=== PATIENT | male | born 1965 | race Caucasian/White ===

== ENCOUNTER 2016-10-22 14:13 | Emergency (ER) | payer OTHER ==
[2016-10-22] MEDS ORDERED: TORAdol 30 mg Injection IV ONE (14:32)
[2016-10-22] MEDS ORDERED: Phenergan 25 MG INJ IV ONE (14:32)
[2016-10-22] MEDS ORDERED: Hydromorphone 1 mg/ml Ampule IV ONE (14:32)
[2016-10-22] MEDS ORDERED: Sodium Chloride 0.9% 1000 ML 1,000 ML IV STA (14:32)
--- NOTE | 2016-10-22 14:33 | ERPHSYRPT ---
- History of Present Illness Time Seen by Provider: 10/22/16 14:26 Historian: patient Exam Limitations: no limitations Physician History: Patient is a 51-year-old male with his complaining of a sudden onset of right flank and right abdominal pain about one hour ago. He is nauseated. He is unable to urinate. He has a history of a large kidney stone a few years ago that needed to be disrupted with lithotripsy. He states that he's had mild right flank and abdominal pain for about 6 weeks it is been intermittent. Today it became suddenly much worse. He has a past medical history of kidney stones, high cholesterol, high blood pressure, GERD, and gout. He's had no abdominal surgeries. Timing/Duration: today, hour(s) (1) Activities at Onset: none Quality: sharpness Abdominal Pain Onset Location: RLQ, flank (right) Pain Radiation: no radiation Severity of Pain-Max: severe Severity of Pain-Current: severe Modifying Factors: Improves With: nothing Associated Symptoms: nausea, other (dysuria) Previous symptoms: same symptoms as today Allergies/Adverse Reactions: shellfish derived Allergy (Intermediate, Verified 10/22/16 14:24) Hives Penicillins Allergy (Verified 10/22/16 14:24) promethazine HCl [From Phenergan] Adverse Reaction (Verified 10/22/16 14:24) Home Medications: Allopurinol 300 mg [Zyloprim 300 mg] 300 mg PO HS 05/11/15 [History] Esomeprazole Magnesium [Nexium] 20 mg PO 05/11/15 [History] Lisinopril 10 mg [Zestril 10 MG] 40 mg PO HS 05/11/15 [History] Loratadine 10 mg [Claritin 10 mg] 10 mg PO HS 05/11/15 [History] Pravastatin Sodium 40 mg PO HS 05/11/15 [History] Tamsulosin HCl [Flomax] 0.4 mg PO HS 05/11/15 [History] Hx Tetanus, Diphtheria Vaccination/Date Given: No Hx Influenza Vaccination/Date Given: Yes Hx Pneumococcal Vaccination/Date Given: No - Review of Systems Constitutional: No Fever, No Chills Eyes: No Symptoms Ears, Nose, & Throat: No Symptoms Respiratory: No Cough, No Dyspnea Cardiac: No Chest Pain, No Edema, No Syncope Abdominal/Gastrointestinal: Abdominal Pain, Nausea Genitourinary Symptoms: Dysuria Musculoskeletal: No Back Pain, No Neck Pain Skin: No Rash Neurological: No Dizziness, No Focal Weakness, No Sensory Changes Psychological: No Symptoms Endocrine: No Symptoms Hematologic/Lymphatic: No Symptoms Immunological/Allergic: No Symptoms All Other Systems: Reviewed and Negative - Past Medical History Pertinent Past Medical History: Yes Neurological History: No Pertinent History ENT History: No Pertinent History Cardiac History: High Cholesterol, Hypertension Respiratory History: No Pertinent History Endocrine Medical History: No Pertinent History Musculoskeletal History: Fractures GI Medical History: Other, GERD History: Other Psycho-Social History: No Pertinent History Male Reproductive Disorders: No Pertinent History Other Medical History: esophogeal errousion, kidney stones, kidney biopsy - Past Surgical History Past Surgical History: Yes Neuro Surgical History: No Pertinent History Cardiac: No Pertinent History Respiratory: No Pertinent History Gastrointestinal: No Pertinent History, Hernia Repair Genitourinary: Other Musculoskeletal: No Pertinent History, Orthopedic Surgery Male Surgical History: No Pertinent History Other Surgical History: EGD-banding esophagous, lithotripsy, left wrist x2, right knee.cyst removed from left side of kneck - Social History Smoking Status: Never smoker Exposure to second hand smoke: No Drug Use: none Patient Lives Alone: No Significant Family History: other (Father with Colon cacner dx 62) - Nursing Vital Signs Nursing Vital Signs: Initial Vital Signs Temperature 97.5 F 10/22/16 14:19 Pulse Rate 66 10/22/16 14:19 Respiratory Rate 16 10/22/16 14:19 Blood Pressure 169/99 10/22/16 14:19 O2 Sat by Pulse Oximetry 96 10/22/16 14:19 Pain Scale Pain Intensity 0 - Physical Exam General Appearance: moderate distress Eye Exam: PERRL/EOMI, eyes nml inspection Ears, Nose, Throat Exam: normal ENT inspection, pharynx normal, moist mucous membranes Neck Exam: normal inspection, non-tender, supple, full range of motion Respiratory Exam: normal breath sounds, lungs clear, No respiratory distress Cardiovascular Exam: tachycardia Gastrointestinal/Abdomen Exam: tenderness (RLQ) Rectal Exam: not done Back Exam: CVA tenderness (right) Extremity Exam: normal inspection, normal range of motion, pelvis stable Neurologic Exam: alert, oriented x 3, cooperative, normal mood/affect, nml cerebellar function, sensation nml, No motor deficits Skin Exam: normal color, warm, dry SpO2 Interpretation: normal - CT Exams Abdomen/Pelvis CT Interpretation: Discussed w/radiologist, Tele-radiologist Report, Normal Appendix, Other (4 X 5.9 mm stone in distal right ureter with obstruction per Dr Littlejohn.) Ordered Tests: Active Orders 24 hr Category Date Time Status IV Insertion STAT Care 10/22/16 14:32 Active ABDOMEN AND PELVIS W/0 CONTRAS [CT] Stat Exams 10/22/16 14:33 Taken CBC W DIFF Stat Lab 10/22/16 14:30 Completed CMP Stat Lab 10/22/16 14:30 Completed LIPASE Stat Lab 10/22/16 14:30 Completed Lactic Acid Stat Lab 10/22/16 14:32 Completed UA W/RFX UR CULTURE Stat Lab 10/22/16 14:33 Ordered Medication Summary Discontinued Medications Generic Name Dose Route Start Last Admin Trade Name Freq PRN Reason Stop Dose Admin Hydromorphone HCl 1 mg 10/22/16 14:32 10/22/16 14:49 Hydromorphone 1 Mg/Ml Ampule IV 10/22/16 14:33 1 mg STAT ONE Administration Hydromorphone HCl Confirm 10/22/16 14:41 Hydromorphone 1 Mg/Ml Ampule Administered 10/22/16 14:42 Dose 1 mg .ROUTE .STK-MED ONE Sodium Chloride 1,000 mls @ 999 mls/hr 10/22/16 14:32 10/22/16 14:42 Sodium Chloride 0.9% 1000 Ml IV 10/22/16 15:32 999 mls/hr .Q1H1M STA Administration Sodium Chloride Confirm 10/22/16 14:41 Sodium Chloride 0.9% 1000 Ml Administered 10/22/16 14:42 Dose 1,000 mls @ ud .ROUTE .STK-MED ONE Ketorolac Tromethamine 30 mg 10/22/16 14:32 10/22/16 14:46 Toradol 30 Mg Injection IV 10/22/16 14:33 30 mg STAT ONE Administration Ketorolac Tromethamine Confirm 10/22/16 14:40 Toradol 30 Mg Injection Administered 10/22/16 14:41 Dose 30 mg .ROUTE .STK-MED ONE Ondansetron HCl 4 mg 10/22/16 14:37 10/22/16 14:44 Zofran 4 Mg/2 Ml Vial IV 10/22/16 14:38 4 mg STAT ONE Administration Ondansetron HCl Confirm 10/22/16 14:40 Zofran 4 Mg/2 Ml Vial Administered 10/22/16 14:41 Dose 4 mg .ROUTE .STK-MED ONE Promethazine HCl 25 mg 10/22/16 14:32 10/22/16 14:39 Phenergan 25 Mg Inj IV 10/22/16 14:33 Not Given STAT ONE Tamsulosin HCl 0.4 mg 10/22/16 14:34 10/22/16 14:53 Flomax 0.4 Mg PO 10/22/16 14:35 0.4 mg HS STA Administration Tamsulosin HCl Confirm 10/22/16 14:41 Flomax 0.4 Mg Administered 10/22/16 14:42 Dose 0.4 mg .ROUTE .STK-MED ONE Lab/Rad Data: Laboratory Result Diagrams 10/22/16 14:30 10/22/16 14:30 Laboratory Results 10/22/16 10/22/16 10/22/16 Range/Units 14:32 14:30 14:30 WBC 12.9 H (4.0-10.5) K/mm3 RBC 5.28 (4.1-5.6) M/mm3 Hgb 15.1 (12.5-18.0) gm/dl Hct 45.0 (42-50) % MCV 85.2 (78-100) fl MCH 28.6 (26-32) pg MCHC 33.6 (32-36) g/dl RDW 15.0 H (11.5-14.0) % Plt Count 289 (150-450) K/mm3 MPV 10.4 H (6-9.5) fl Gran % 73.3 H (36.0-66.0) % Lymphocytes % 17.8 L (24.0-44.0) % Monocytes % 7.5 (0.0-12.0) % Eosinophils % 1.2 (0.00-5.0) % Basophils % 0.2 (0.0-0.4) % Basophils # 0.03 (0-0.4) Sodium 141 (136-145) mEq/L Potassium 3.8 (3.5-5.1) mEq/L Chloride 105 (98-107) mEq/L Carbon Dioxide 24.6 (21-32) mEq/L Anion Gap 15.1 H (5-15) MEQ/L BUN 18 (9-20) mg/dL Creatinine 1.21 (0.55-1.30) mg/dl Estimated GFR > 60 ML/MIN Glucose 126 H (70-110) MG/DL Lactic Acid 1.8 (0.4-2.0) Calcium 10.0 (8.5-10.1) mg/dL Total Bilirubin 0.40 (0.2-1.0) mg/dL AST 21 (15-37) U/L ALT 31 (12-78) U/L Alkaline Phosphatase 123 H (46-116) U/L Serum Total Protein 7.7 (6.4-8.2) gm/dL Albumin 3.9 (3.4-5.0) g/dL Lipase 143 (73-393) U/L - Progress Progress: improved, pain not gone completely Counseled pt/family regarding: lab results, diagnosis, rad results - Departure Time of Disposition: 16:54 Departure Disposition: Home Clinical Impression: Ureterolithiasis Condition: Stable Critical Care Time: No Referrals: ELTON MÉNDEZ [Primary Care Provider] - Additional Instructions: You have a 6 mm stone in your distal right ureter. The stone is just about ready to pass into the bladder. You were given fluids, Zofran 4 mg, and Dilaudid 2 mg in the IV in the ER. Continue to stay well hydrated. Take Pyote one to 2 tablets every 4-6 hours as needed for pain.
[2016-10-22] MEDS ORDERED: Flomax 0.4 MG PO STA (14:34)
[2016-10-22] MEDS ORDERED: Zofran 4 MG/2 ML VIAL IV ONE (14:37)
[2016-10-22] MEDS ORDERED: Zofran 4 MG/2 ML VIAL ONE (14:40)
[2016-10-22] MEDS ORDERED: TORAdol 30 mg Injection ONE (14:40)
[2016-10-22] MEDS ORDERED: Hydromorphone 1 mg/ml Ampule ONE ×2 (14:41→16:59)
[2016-10-22] MEDS ORDERED: Flomax 0.4 MG ONE (14:41)
[2016-10-22] MEDS ORDERED: Sodium Chloride 0.9% 1000 ML 1,000 ML ONE (14:41)
[2016-10-22 14:54] LABS: BASOPHIL % 0.2 % (0.0-0.4); Eosinophil % 1.2 % (0.00-5.0); Granulocytes % 73.3 % (36.0-66.0); Lymphocytes % 17.8 % (24.0-44.0); Mean Cell Volume 85.2 fl (78-100); Mean Corpuscular Hemoglobin 28.6 pg (26-32); Mean Platelet Volume 10.4 fl (6-9.5); Monocytes % 7.5 % (0.0-12.0); Platelet Count 289 K/mm3 (150-450); Red Blood Count 5.28 M/mm3 (4.1-5.6); White Blood Count 12.9 K/mm3 (4.0-10.5)
[2016-10-22 15:10] LABS: ALBUMIN 3.9 g/dL (3.4-5.0); ALKALINE PHOSPHATASE 123 U/L (46-116); ANION GAP 15.1 MEQ/L (5-15); BLOOD UREA NITROGEN 18 mg/dL (9-20); CHLORIDE 105 mEq/L (98-107); Carbon Dioxide 24.6 mEq/L (21-32); Glucose 126 MG/DL (70-110); LIPASE 143 U/L (73-393); Potassium 3.8 mEq/L (3.5-5.1); SGOT/AST 21 U/L (15-37); SGPT/ALT 31 U/L (12-78); SODIUM 141 mEq/L (136-145); Total Protein 7.7 gm/dL (6.4-8.2)
[2016-10-22] MEDS ORDERED: NORCO 7.5/325 MG TAB PO PRN (16:55)
[2016-10-22] MEDS: Hydromorphone 1 mg/ml Ampule IV ONE ×2 (17:00→17:04)
[2016-10-22 17:59] VITALS: BP 111/61; PULSE 59; O2SAT 93
--- NOTE | 2016-10-22 21:29 | XRAY ---
Indication: Right lower pain. Pain with urinating. Multiple contiguous axial images obtained through the abdomen and pelvis without contrast as ordered. Comparison: None Lung bases demonstrates mild bibasilar dependent atelectasis and a few calcified granulomas. Heart is not enlarged. There is a 6 mm distal right ureteral calculus approximately 5 cm proximal to the UVJ. The more proximal right ureter is prominent up to 6 mm and there is mild hydronephrosis with minimal perinephric stranding consistent with partial obstructive uropathy. Additional bilateral renal micro-calculi. Stomach is markedly distended with food. Noncontrasted stomach and bowel loops appear nonobstructed. Normal appendix. Minimal sigmoid diverticulosis. No free fluid/air. Tiny 3 mm gallstone and a few calcified splenic granulomas. Remaining liver, pancreas, spleen, adrenal glands, bladder, and aorta appear unremarkable for noncontrast exam. Intact ventral hernia mesh graft. Osseous structures intact. Impression: 1. 6 mm distal right ureteral calculus producing partial obstruction. Additional bilateral renal micro-calculi. 2. Incidental tiny gallstone, sigmoid diverticulosis, and evidence for old granulomatous disease. Comment: Preliminary interpretation was made by [facility]. No discrepancy. CTDI 23.67
== END 2016-10-22 18:00 | disposition home or self-care (01) ==
LOC: ED 14:13
DX: N20.1 Calculus of ureter (principal); R10.9 Unspecified abdominal pain; Z87.442 Personal history of urinary calculi; E78.00 Pure hypercholesterolemia, unspecified; I10 Essential (primary) hypertension; R10.31 Right lower quadrant pain; R11.0 Nausea
CPT/HCPCS: 36000; 36415; 74176; 80053; 83605; 83690; 85025; 96360; 96374; 96375; 96376; 99284; J1170; J1885; J2405; A9270-GY

== ENCOUNTER 2016-11-24 20:38 | Emergency (ER) | payer OTHER ==
[2016-11-24] MEDS ORDERED: Sodium Chloride 0.9% 1000 ML 1,000 ML IV STA ×2 (21:21→22:12)
[2016-11-24] MEDS ORDERED: TORAdol 30 mg Injection IV ONE (21:21)
[2016-11-24] MEDS ORDERED: Zofran 4 MG/2 ML VIAL IV ONE (21:21)
--- NOTE | 2016-11-24 21:26 | ERPHSYRPT ---
- History of Present Illness Time Seen by Provider: 11/24/16 21:14 Historian: patient Exam Limitations: no limitations Patient Subjective Stated Complaint: Per Patient c/o right lower back pain starting post stent removal today by Dr Enriquez for kidney stones. pain 10-10 not controlled by spasm meds and hydrocodone. Triage Nursing Assessment: Per Patient c/o right lower back pain starting post stent removal today by Dr Enriquez for kidney stones. pain 10-10 not controlled by spasm meds and hydrocodone. Physician History: 51-year-old white male with history of urolithiasis status post ureteral stent which was removed today arrives with complaint of pain in his right flank which is crampy severe sharp going on since around noon. Patient without vomiting has had nausea Past medical history includes hyperlipidemia, high blood pressure, GERD, fractures, esophageal erosion, kidney stones, kidney biopsy. Past surgical history includes EGD, lithotripsy, left wrist surgery right knee surgery. , Ureteral stents. Timing/Duration: today Activities at Onset: none Quality: cramping, sharpness Abdominal Pain Onset Location: other (right flank) Pain Radiation: no radiation Severity of Pain-Max: moderate Severity of Pain-Current: moderate Modifying Factors: Improves With: other (patient with ureteral stent removed today) Associated Symptoms: back (Right flank pain), other (nausea), No chest pain, No diaphoresis, No diarrhea, No fever/chills, No fatigue, No headache (ill), No heartburn, No loss of appetite, No nausea, No neck pain, No rash, No shortness of breath, No syncope, No testicular pain, No vomiting, No weakness Previous symptoms: same symptoms as today Allergies/Adverse Reactions: shellfish derived Allergy (Intermediate, Verified 10/22/16 14:24) Hives Penicillins Allergy (Verified 10/22/16 14:24) promethazine HCl [From Phenergan] Adverse Reaction (Verified 10/22/16 14:24) Home Medications: Allopurinol 300 mg [Zyloprim 300 mg] 300 mg PO HS 05/11/15 [History] Esomeprazole Magnesium [Nexium] 20 mg PO HS 05/11/15 [History] Lisinopril 10 mg [Zestril 10 MG] 40 mg PO HS 03/01/16 [History] Loratadine 10 mg [Claritin 10 mg] 10 mg PO HS 05/11/15 [History] Pravastatin Sodium 40 mg PO HS 05/11/15 [History] Tamsulosin HCl [Flomax] 0.4 mg PO HS 05/11/15 [History] Hx Tetanus, Diphtheria Vaccination/Date Given: Yes Hx Influenza Vaccination/Date Given: Yes Hx Pneumococcal Vaccination/Date Given: No - Review of Systems Constitutional: No Fever, No Chills Eyes: No Symptoms Ears, Nose, & Throat: No Symptoms Respiratory: No Cough, No Dyspnea Cardiac: No Chest Pain, No Edema, No Syncope Abdominal/Gastrointestinal: Nausea, No Abdominal Pain, No Vomiting, No Diarrhea , No Constipation, No Hematemesis, No Hematochezia, No Melena, No Dysphagia, No Appetite Changes Genitourinary Symptoms: Flank Pain, No Dysuria, No Frequency, No Hematuria, No Hesitancy Musculoskeletal: No Back Pain, No Neck Pain Skin: No Rash Neurological: No Dizziness, No Focal Weakness, No Sensory Changes Psychological: No Symptoms Endocrine: No Symptoms All Other Systems: Reviewed and Negative - Past Medical History Pertinent Past Medical History: Yes Neurological History: No Pertinent History ENT History: No Pertinent History Cardiac History: No Pertinent History Respiratory History: No Pertinent History Endocrine Medical History: No Pertinent History Musculoskeletal History: Fractures GI Medical History: No Pertinent History History: Other Psycho-Social History: No Pertinent History Male Reproductive Disorders: No Pertinent History Other Medical History: Kidney stones - Past Surgical History Past Surgical History: Yes Neuro Surgical History: No Pertinent History Cardiac: No Pertinent History Respiratory: No Pertinent History Gastrointestinal: No Pertinent History, Hernia Repair Genitourinary: Other Musculoskeletal: No Pertinent History, Orthopedic Surgery Male Surgical History: No Pertinent History Other Surgical History: Stens for kidney stones - Social History Smoking Status: Never smoker Exposure to second hand smoke: No Drug Use: none Patient Lives Alone: No (family) Significant Family History: other (Father with Colon cacner dx 62) - Nursing Vital Signs Nursing Vital Signs: Initial Vital Signs Temperature 98.1 F 11/24/16 20:59 Pulse Rate 84 11/24/16 20:59 Respiratory Rate 12 11/24/16 20:59 Blood Pressure 137/84 11/24/16 20:59 O2 Sat by Pulse Oximetry 98 11/24/16 20:59 Pain Scale Pain Intensity [Right Lower 10 Back] Pain Intensity 2 - Physical Exam General Appearance: moderate distress Eye Exam: PERRL/EOMI, eyes nml inspection Ears, Nose, Throat Exam: normal ENT inspection, pharynx normal, moist mucous membranes Neck Exam: normal inspection, non-tender, supple, full range of motion Respiratory Exam: normal breath sounds, lungs clear, No respiratory distress Gastrointestinal/Abdomen Exam: soft, normal bowel sounds, No tenderness, No distention, No mass, No guarding Male Genitalia Exam: normal genitalia Back Exam: CVA tenderness (right flank tenderness) Extremity Exam: normal inspection, normal range of motion, pelvis stable Neurologic Exam: alert, oriented x 3, cooperative, normal mood/affect, nml cerebellar function, sensation nml, No motor deficits Skin Exam: normal color, warm, dry SpO2 Interpretation: normal (98%) SpO2: 98 Oxygen Delivery: Room Air Ordered Tests: Active Orders 24 hr Category Date Time Status IV Insertion STAT Care 11/24/16 21:21 Active CBC W DIFF Stat Lab 11/24/16 21:42 Completed CMP Stat Lab 11/24/16 21:42 Completed UA W/ MICROSCOPIC Stat Lab 11/24/16 22:15 Completed Medication Summary Discontinued Medications Generic Name Dose Route Start Last Admin Trade Name Freq PRN Reason Stop Dose Admin Sodium Chloride 1,000 mls @ 999 mls/hr 11/24/16 21:21 11/24/16 21:37 Sodium Chloride 0.9% 1000 Ml IV 11/24/16 22:21 999 mls/hr .Q1H1M STA Administration Sodium Chloride Confirm 11/24/16 21:34 Sodium Chloride 0.9% 1000 Ml Administered 11/24/16 21:35 Dose 1,000 mls @ ud .ROUTE .STK-MED ONE Sodium Chloride 1,000 mls @ 999 mls/hr 11/24/16 22:12 11/24/16 22:48 Sodium Chloride 0.9% 1000 Ml IV 11/24/16 23:12 999 mls/hr .Q1H1M STA Administration Sodium Chloride Confirm 11/24/16 22:44 Sodium Chloride 0.9% 1000 Ml Administered 11/24/16 22:45 Dose 1,000 mls @ ud .ROUTE .STK-MED ONE Ketorolac Tromethamine 30 mg 11/24/16 21:21 11/24/16 21:48 Toradol 30 Mg Injection IV 11/24/16 21:22 30 mg STAT ONE Administration Ketorolac Tromethamine Confirm 11/24/16 21:34 Toradol 30 Mg Injection Administered 11/24/16 21:35 Dose 30 mg .ROUTE .STK-MED ONE Ondansetron HCl 4 mg 11/24/16 21:21 11/24/16 21:48 Zofran 4 Mg/2 Ml Vial IV 11/24/16 21:22 4 mg STAT ONE Administration Ondansetron HCl Confirm 11/24/16 21:34 Zofran 4 Mg/2 Ml Vial Administered 11/24/16 21:35 Dose 4 mg .ROUTE .STK-MED ONE Lab/Rad Data: Laboratory Result Diagrams 11/24/16 21:42 11/24/16 21:42 Laboratory Results 11/24/16 11/24/16 11/24/16 Range/Units 22:15 21:42 21:42 WBC 12.0 H (4.0-10.5) K/mm3 RBC 4.71 (4.1-5.6) M/mm3 Hgb 13.8 (12.5-18.0) gm/dl Hct 41.3 L (42-50) % MCV 87.7 (78-100) fl MCH 29.3 (26-32) pg MCHC 33.4 (32-36) g/dl RDW 14.5 H (11.5-14.0) % Plt Count 296 (150-450) K/mm3 MPV 9.3 (6-9.5) fl Gran % 76.9 H (36.0-66.0) % Lymphocytes % 13.8 L (24.0-44.0) % Monocytes % 7.0 (0.0-12.0) % Eosinophils % 2.1 (0.00-5.0) % Basophils % 0.2 (0.0-0.4) % Basophils # 0.02 (0-0.4) Sodium 141 (136-145) mEq/L Potassium 3.9 (3.5-5.1) mEq/L Chloride 104 (98-107) mEq/L Carbon Dioxide 26.6 (21-32) mEq/L Anion Gap 13.8 (5-15) MEQ/L BUN 13 (9-20) mg/dL Creatinine 1.40 H (0.55-1.30) mg/dl Estimated GFR 57 ML/MIN Glucose 120 H (70-110) MG/DL Calcium 9.8 (8.5-10.1) mg/dL Total Bilirubin 0.30 (0.2-1.0) mg/dL AST 13 L (15-37) U/L ALT 22 (12-78) U/L Alkaline Phosphatase 114 (46-116) U/L Serum Total Protein 7.2 (6.4-8.2) gm/dL Albumin 3.7 (3.4-5.0) g/dL Ur Collection Type CCMS Urine Color YELLOW (YELLOW) Urine Appearance CLEAR (CLEAR) Urine pH 5.0 (5-6) Ur Specific [place] 1.025 (1.005-1.025) Urine Protein NEGATIVE (Negative) Urine Ketones NEGATIVE (NEGATIVE) Urine Blood 250 (0-5) [place]/ul Urine Nitrite NEGATIVE (NEGATIVE) Urine Bilirubin NEGATIVE (NEGATIVE) Urine Urobilinogen NORMAL (0-1) mg/dL Ur Leukocyte Esterase TRACE (NEGATIVE) Urine Microscopic RBC 2-5 (0-2) /HPF Urine Microscopic WBC 2-5 (0-5) /HPF Urine Glucose NEGATIVE (NEGATIVE) mg/dL Specimen Received 11-24-16 2229 - Progress Progress: improved Progress Note: 11/24/16 22:54 51-year-old white male with history of ureteral stones who had a ureteral stent pulled from the right side this afternoon states he's been having pain in his right flank since around noon. Describes the pain as crampy. Has no fevers no real abdominal pain no nausea no vomiting. Patient is tender with palpation in the right flank. CBC CMP UA is obtained on this patient to essentially normal with only a few white cells and red cells in his urine. Patient is given IV Toradol 30 mg IV normal saline 2 L he is receiving second liter of normal saline he states he is feeling markedly improved and is pain free. Patient states he has a few [place] tablets at home (only 2 or 3) Will plan on discharge with this patient once remaining fluids have instilled Will write for [place] for pain. Patient to return home [place] as prescribed follow-up with his family doctor or urologist. Return for acute distress or for severe symptoms - Departure Time of Disposition: 23:14 Departure Disposition: Home Clinical Impression: Right flank pain, Ureteral colic, recent removal ureteral stent Condition: Fair Critical Care Time: No Referrals: VERNON PLASENCIA [Primary Care Provider] - Additional Instructions: Return home. Plenty of fluids. [place] 5/325 #15 one to 2 orally every 4-6 hours as needed for pain. Follow-up with your urologist or your family doctor. Return for acute distress or for severe symptoms. Prescriptions: Hydrocodone Bit/Acetaminophen [[place] 5/325Mg] 1 - 2 tab PO Q4-6HPRN PRN #15 tablet PRN Reason: Pain
[2016-11-24] MEDS ORDERED: Sodium Chloride 0.9% 1000 ML 1,000 ML ONE ×2 (21:34→22:44)
[2016-11-24] MEDS ORDERED: Zofran 4 MG/2 ML VIAL ONE (21:34)
[2016-11-24] MEDS ORDERED: TORAdol 30 mg Injection ONE (21:34)
[2016-11-24 21:48] LABS: BASOPHIL % 0.2 % (0.0-0.4); Eosinophil % 2.1 % (0.00-5.0); Granulocytes % 76.9 % (36.0-66.0); Lymphocytes % 13.8 % (24.0-44.0); Mean Cell Volume 87.7 fl (78-100); Mean Corpuscular Hemoglobin 29.3 pg (26-32); Mean Platelet Volume 9.3 fl (6-9.5); Platelet Count 296 K/mm3 (150-450); Red Blood Count 4.71 M/mm3 (4.1-5.6); Red Cell Distribution Width 14.5 % (11.5-14.0)
[2016-11-24 22:15] LABS: ALBUMIN 3.7 g/dL (3.4-5.0); ANION GAP 13.8 MEQ/L (5-15); BILIRUBIN,TOTAL 0.3 mg/dL (0.2-1.0); Carbon Dioxide 26.6 mEq/L (21-32); Potassium 3.9 mEq/L (3.5-5.1); Total Protein 7.2 gm/dL (6.4-8.2)
[2016-11-24 22:29] LABS: Bilirubin NEGATIVE (NEGATIVE); Blood 250 Ery/ul (0-5); COMPLETE URINE MICROSCOPIC? YES; Collection Type CCMS; Glucose NEGATIVE (NEGATIVE); Leukocyte Esterase TRACE (NEGATIVE)
[2016-11-24 22:30] LABS: ADD URINE CULTURE? NO (NO)
[2016-11-24 23:41] VITALS: BP 123/68; PULSE 61; O2SAT 99
== END 2016-11-24 23:41 | disposition home or self-care (01) ==
LOC: ED 20:38
DX: R10.9 Unspecified abdominal pain (principal); N23 Unspecified renal colic; Z98.890 Other specified postprocedural states
CPT/HCPCS: 36000; 36415; 80053; 81000; 85025; 96360; 96361; 96374; 96375; 99283; J1885; J2405

== ENCOUNTER 2019-01-08 00:22 | Observation (INO) | payer OTHER ==
[2019-01-08] MEDS ORDERED: Sodium Chloride 0.9% 1000 ML 1,000 ML IV STA ×2 (01:07→02:49)
[2019-01-08] MEDS ORDERED: Zofran 4 MG/2 ML VIAL IV ONE (01:07)
[2019-01-08] MEDS ORDERED: Hydromorphone 1 mg/ml Ampule IV ONE (01:07)
--- NOTE | 2019-01-08 01:07 | ERPHSYRPT ---
- History of Present Illness Time Seen by Provider: 01/08/19 00:50 Historian: patient, family Exam Limitations: no limitations Patient Subjective Stated Complaint: pt states he seen PCP on sunday and flu test was negative, PCP gave pt shot on sunday, pt states that he was nausea on sunday, pt states that severe stomach pains began sunday around 1030, pt states that he had diarrhea, pt states that he has been pucking all night, pt states he took a zofran x2 with no relief, pt states he feels like he could have BM but gut hurts so bad he cant strain, pt states that he has not ate or drank for the past couple of days Triage Nursing Assessment: pt came into the er via wheelchair with spouse, pt has been N/V/D today, pt abdomen is distended, bowel sounds are hypoactive, mucus membranes are dry, vitals wnl Physician History: 53 y/o white male with 2 day h/o n/v/d and abd pain. sx worsening. pt seen by pcp and flu tests negative. zofran did not help and could not hold it down. pt had a nl colonoscopy 2 years ago. pt has associated abd distension Timing/Duration: day(s) (2 to 3), intermittent, worse Activities at Onset: none Quality: cramping, fullness, pressure Abdominal Pain Onset Location: generalized abdomen Pain Radiation: no radiation Severity of Pain-Max: moderate Severity of Pain-Current: moderate Associated Symptoms: diarrhea, loss of appetite, nausea, vomiting Previous symptoms: no prior history Allergies/Adverse Reactions: shellfish derived Allergy (Intermediate, Verified 01/08/19 00:46) Hives Penicillins Allergy (Verified 01/08/19 00:46) promethazine HCl [From Phenergan] Adverse Reaction (Verified 01/08/19 00:46) Home Medications: Allopurinol 300 mg [Zyloprim 300 mg] 300 mg PO HS 05/11/15 [History] Esomeprazole Magnesium [Nexium] 20 mg PO HS 05/11/15 [History] Lisinopril 10 mg [Zestril 10 MG] 40 mg PO HS 05/11/15 [History] Loratadine 10 mg [Claritin 10 mg] 10 mg PO HS 05/11/15 [History] Pravastatin Sodium 40 mg PO HS 05/11/15 [History] Tamsulosin HCl [Flomax] 0.4 mg PO HS 05/11/15 [History] Fluticasone Propionate [Flonase NASAL] 1 spray .ROUTE DAILY 01/08/19 [ History] Ropinirole HCl 1 mg PO HS 01/08/19 [History] Hx Tetanus, Diphtheria Vaccination/Date Given: Yes Hx Influenza Vaccination/Date Given: No Hx Pneumococcal Vaccination/Date Given: No - Review of Systems Constitutional: No Symptoms Eyes: No Symptoms Ears, Nose, & Throat: No Symptoms Respiratory: No Symptoms Cardiac: No Symptoms Abdominal/Gastrointestinal: Abdominal Pain, Nausea, Vomiting, Diarrhea Genitourinary Symptoms: No Symptoms Musculoskeletal: No Symptoms Skin: No Symptoms Neurological: No Symptoms Psychological: No Symptoms Endocrine: No Symptoms Hematologic/Lymphatic: No Symptoms Immunological/Allergic: No Symptoms All Other Systems: Reviewed and Negative - Past Medical History Pertinent Past Medical History: Yes Neurological History: No Pertinent History ENT History: No Pertinent History Cardiac History: No Pertinent History Respiratory History: No Pertinent History Endocrine Medical History: No Pertinent History Musculoskeletal History: Fractures GI Medical History: No Pertinent History History: Other Psycho-Social History: No Pertinent History Male Reproductive Disorders: No Pertinent History Other Medical History: Kidney stones - Past Surgical History Past Surgical History: Yes Neuro Surgical History: No Pertinent History Cardiac: No Pertinent History Respiratory: No Pertinent History Gastrointestinal: No Pertinent History, Hernia Repair Genitourinary: Other Musculoskeletal: No Pertinent History, Orthopedic Surgery Male Surgical History: No Pertinent History Other Surgical History: Stens for kidney stones, parathyroidectomy - Social History Smoking Status: Never smoker Exposure to second hand smoke: No Drug Use: none Patient Lives Alone: No (family) Significant Family History: other (Father with Colon cacner dx 62) - Nursing Vital Signs Nursing Vital Signs: Initial Vital Signs Temperature 97.4 F 01/08/19 00:27 Pulse Rate 80 01/08/19 00:27 Respiratory Rate 22 01/08/19 00:27 Blood Pressure 136/94 01/08/19 00:27 O2 Sat by Pulse Oximetry 100 01/08/19 00:27 Pain Scale Pain Intensity 7 - Physical Exam General Appearance: mild distress, alert, anxiety Eye Exam: PERRL/EOMI, eyes nml inspection Ears, Nose, Throat Exam: normal ENT inspection, moist mucous membranes Neck Exam: normal inspection, non-tender, supple, full range of motion Respiratory Exam: normal breath sounds, lungs clear, airway intact, No chest tenderness, No respiratory distress Cardiovascular Exam: regular rate/rhythm, normal heart sounds, normal peripheral pulses Gastrointestinal/Abdomen Exam: tenderness, distention, guarding, other ( decreased bs) Rectal Exam: not done Back Exam: normal inspection, normal range of motion, No CVA tenderness, No vertebral tenderness Extremity Exam: normal inspection, normal range of motion, pelvis stable Neurologic Exam: alert, oriented x 3, cooperative, label rewinder II-XII nml as tested, normal mood/affect, nml cerebellar function Skin Exam: normal color, warm, dry Lymphatic Exam: No adenopathy SpO2 Interpretation: normal SpO2: 100 O2 Delivery: Room Air Ordered Tests: Active Orders 24 hr Category Date Time Status IV Insertion STAT Care 01/08/19 01:07 Active ABDOMEN AND PELVIS W/0 CONTRAS [CT] Stat Exams 01/08/19 01:08 Taken AMYLASE Stat Lab 01/08/19 01:18 Completed CBC W DIFF Stat Lab 01/08/19 01:18 Completed CMP Stat Lab 01/08/19 01:18 Completed LIPASE Stat Lab 01/08/19 01:18 Completed Lactic Acid Stat Lab 01/08/19 01:30 Completed UA W/RFX UR CULTURE Stat Lab 01/08/19 03:52 Completed Transfer Order Routine Transfer 01/08/19 Ordered Medication Summary Discontinued Medications Generic Name Dose Route Start Last Admin Trade Name Freq PRN Reason Stop Dose Admin Bisacodyl Confirm 01/08/19 02:36 Dulcolax 10 Mg Supp Administered 01/08/19 02:37 Dose 10 mg .ROUTE .STK-MED ONE Bisacodyl 10 mg 01/08/19 02:39 01/08/19 02:41 Dulcolax 10 Mg Supp [place] 01/08/19 02:40 10 mg STAT ONE Administration Glycerin 1 supp.rect 01/08/19 02:23 01/08/19 02:35 Glycerin Adult Suppository RC 01/08/19 02:24 Not Given STAT ONE Hydromorphone HCl 1 mg 01/08/19 01:07 01/08/19 01:34 Hydromorphone 1 Mg/Ml Ampule IV 01/08/19 01:08 1 mg STAT ONE Administration Hydromorphone HCl Confirm 01/08/19 01:14 Hydromorphone 1 Mg/Ml Ampule Administered 01/08/19 01:15 Dose 1 mg .ROUTE .STK-MED ONE Sodium Chloride 1,000 mls @ 999 mls/hr 01/08/19 01:07 01/08/19 03:45 Sodium Chloride 0.9% 1000 Ml IV 01/08/19 02:07 Infused .Q1H1M STA Infusion Sodium Chloride Confirm 01/08/19 01:14 Sodium Chloride 0.9% 1000 Ml Administered 01/08/19 01:15 Dose 1,000 mls @ ud .ROUTE .STK-MED ONE Sodium Chloride Confirm 01/08/19 02:48 Sodium Chloride 0.9% 1000 Ml Administered 01/08/19 02:49 Dose 1,000 mls @ ud .ROUTE .STK-MED ONE Sodium Chloride 1,000 mls @ 999 mls/hr 01/08/19 02:49 01/08/19 04:06 Sodium Chloride 0.9% 1000 Ml IV 01/08/19 03:49 Infused .Q1H1M STA Infusion Ondansetron HCl 4 mg 01/08/19 01:07 01/08/19 01:32 Zofran 4 Mg/2 Ml Vial IV 01/08/19 01:08 4 mg STAT ONE Administration Ondansetron HCl Confirm 01/08/19 01:14 Zofran 4 Mg/2 Ml Vial Administered 01/08/19 01:15 Dose 4 mg .ROUTE .STK-MED ONE Lab/Rad Data: Laboratory Result Diagrams 01/08/19 01:18 01/08/19 01:18 Laboratory Results 01/08/19 01/08/19 01/08/19 Range/Units 03:52 01:30 01:18 WBC (4.0-10.5) K/mm3 RBC (4.1-5.6) M/mm3 Hgb (12.5-18.0) gm/dl Hct (42-50) % MCV (78-100) fl MCH (26-32) pg MCHC (32-36) g/dl RDW (11.5-14.0) % Plt Count (150-450) K/mm3 MPV (6-9.5) fl Gran % (36.0-66.0) % Eos # (Auto) (0-0.5) Absolute Lymphs (auto) (1.0-4.6) Absolute Monos (auto) (0.0-1.3) Lymphocytes % (24.0-44.0) % Monocytes % (0.0-12.0) % Eosinophils % (0.00-5.0) % Basophils % (0.0-0.4) % Absolute Granulocytes (1.4-6.9) Basophils # (0-0.4) Sodium 143 (137-145) mmol/L Potassium 4.3 (3.5-5.1) mmol/L Chloride 103 (98-107) mmol/L Carbon Dioxide 27 (22-30) mmol/L Anion Gap 17.6 H (5-15) MEQ/L BUN 28 H (9-20) mg/dL Creatinine 1.40 H (0.66-1.25) mg/dL Estimated GFR 56.6 ML/MIN Glucose 140 H (74-106) mg/dL Lactic Acid 1.6 (0.4-2.0) Calcium 9.8 (8.4-10.2) mg/dL Total Bilirubin 0.70 (0.2-1.3) mg/dL AST 21 (17-59) U/L ALT 20 (0-50) U/L Alkaline Phosphatase 89 (38-126) U/L Serum Total Protein 8.0 (6.3-8.2) g/dL Albumin 4.4 (3.5-5.0) g/dL Amylase 52 (30-110) U/L Lipase 23 (23-300) U/L Urine Color NELLIE (YELLOW) Urine Appearance SLIGHTLY CLOUDY (CLEAR) Urine pH 5.0 (5-6) Ur Specific [place] 1.029 (1.005-1.025) Urine Protein 30 (Negative) Urine Ketones TRACE (NEGATIVE) Urine Blood NEGATIVE (0-5) Weston/ul Urine Nitrite NEGATIVE (NEGATIVE) Urine Bilirubin NEGATIVE (NEGATIVE) Urine Urobilinogen 4 (0-1) mg/dL Ur Leukocyte Esterase NEGATIVE (NEGATIVE) Urine WBC (Auto) 3-5 (0-5) /HPF Urine RBC (Auto) 3-5 (0-2) /HPF U Hyaline Cast (Auto) 3-5 (0-2) /LPF U Epithel Cells (Auto) NONE (FEW) /HPF Urine Bacteria (Auto) NONE (NEGATIVE) /HPF Urine Mucus (Auto) MODERATE (NEGATIVE) /HPF Urine Culture Reflexed NO (NO) Urine Glucose NEGATIVE (NEGATIVE) mg/dL Slides for Path Review 01/08/19 Range/Units 01:18 WBC 13.2 H (4.0-10.5) K/mm3 RBC 5.19 (4.1-5.6) M/mm3 Hgb 15.6 (12.5-18.0) gm/dl Hct 46.1 (42-50) % MCV 88.8 (78-100) fl MCH 30.1 (26-32) pg MCHC 33.8 (32-36) g/dl RDW 14.3 H (11.5-14.0) % Plt Count 327 (150-450) K/mm3 MPV 10.0 H (6-9.5) fl Gran % 77.9 H (36.0-66.0) % Eos # (Auto) 0.04 (0-0.5) Absolute Lymphs (auto) 1.00 (1.0-4.6) Absolute Monos (auto) 1.85 H (0.0-1.3) Lymphocytes % 7.6 L (24.0-44.0) % Monocytes % 14.0 H (0.0-12.0) % Eosinophils % 0.3 (0.00-5.0) % Basophils % 0.2 (0.0-0.4) % Absolute Granulocytes 10.33 H (1.4-6.9) Basophils # 0.02 (0-0.4) Sodium (137-145) mmol/L Potassium (3.5-5.1) mmol/L Chloride (98-107) mmol/L Carbon Dioxide (22-30) mmol/L Anion Gap (5-15) MEQ/L BUN (9-20) mg/dL Creatinine (0.66-1.25) mg/dL Estimated GFR ML/MIN Glucose (74-106) mg/dL Lactic Acid (0.4-2.0) Calcium (8.4-10.2) mg/dL Total Bilirubin (0.2-1.3) mg/dL AST (17-59) U/L ALT (0-50) U/L Alkaline Phosphatase (38-126) U/L Serum Total Protein (6.3-8.2) g/dL Albumin (3.5-5.0) g/dL Amylase (30-110) U/L Lipase (23-300) U/L Urine Color (YELLOW) Urine Appearance (CLEAR) Urine pH (5-6) Ur Specific [place] (1.005-1.025) Urine Protein (Negative) Urine Ketones (NEGATIVE) Urine Blood (0-5) Weston/ul Urine Nitrite (NEGATIVE) Urine Bilirubin (NEGATIVE) Urine Urobilinogen (0-1) mg/dL Ur Leukocyte Esterase (NEGATIVE) Urine WBC (Auto) (0-5) /HPF Urine RBC (Auto) (0-2) /HPF U Hyaline Cast (Auto) (0-2) /LPF U Epithel Cells (Auto) (FEW) /HPF Urine Bacteria (Auto) (NEGATIVE) /HPF Urine Mucus (Auto) (NEGATIVE) /HPF Urine Culture Reflexed (NO) Urine Glucose (NEGATIVE) mg/dL Slides for Path Review YES - Progress Progress: improved Progress Note: 01/08/19 04:41 ct abd/pelvis-partial sbo. no transition point. near abd wall mesh 01/08/19 04:[address] whitley. i reviewed pt hx, condition, lab and ct abd/pelvis results. she accepts pt for observation. pt to have gen surg consult. pt agreeable to be placed in obs and obtain gen surg consultation. pt does not want to be evaluated by dr. quinteros but any ok pt states he is feeling better. he has been passing flatus since the rectal suppository placed Discussed with : Erna Counseled pt/family regarding: lab results, diagnosis, rad results - Departure Departure Disposition: Home Clinical Impression: Partial small bowel obstruction Condition: Stable Critical Care Time: No Referrals: ELTON MÉNDEZ [Primary Care Provider] -
[2019-01-08] MEDS ORDERED: Hydromorphone 1 mg/ml Ampule ONE (01:14)
[2019-01-08] MEDS ORDERED: Sodium Chloride 0.9% 1000 ML 1,000 ML ONE ×2 (01:14→02:48)
[2019-01-08] MEDS ORDERED: Zofran 4 MG/2 ML VIAL ONE ×2 (01:14→07:16)
[2019-01-08 01:20] LABS: Absolute Neutrophil Ct (ANC) 10.33 (1.4-6.9); BASOPHIL % 0.2 % (0.0-0.4); Basophil (Absolute #) 0.02 (0-0.4); Eosinophil % 0.3 % (0.00-5.0); Eosinophil (Absolute #) 0.04 (0-0.5); Hematocrit 46.1 % (42-50); Hemoglobin 15.6 gm/dl (12.5-18.0); Lymphocytes % 7.6 % (24.0-44.0); Mean Cell Volume 88.8 fl (78-100); Mean Corpuscular Hemoglobin 30.1 pg (26-32); Mean Corpuscular Hgb Concent. 33.8 g/dl (32-36); Monocyte (Absolute #) 1.85 (0.0-1.3); Neutrophil % 77.9 % (36.0-66.0); Platelet Count 327 K/mm3 (150-450); Red Blood Count 5.19 M/mm3 (4.1-5.6); Red Cell Distribution Width 14.3 % (11.5-14.0); White Blood Count 13.2 K/mm3 (4.0-10.5)
[2019-01-08 01:34] LABS: ALBUMIN 4.4 g/dL (3.5-5.0); ANION GAP 17.6 MEQ/L (5-15); BILIRUBIN,TOTAL 0.7 mg/dL (0.2-1.3); Calcium 9.8 mg/dL (8.4-10.2); Creatinine 1 1.4 mg/dL (0.66-1.25); Potassium 4.3 mmol/L (3.5-5.1)
[2019-01-08] MEDS ORDERED: GLYCERIN ADULT SUPPOSITORY RC ONE (02:23)
[2019-01-08] MEDS ORDERED: Dulcolax 10 MG SUPP ONE (02:36)
[2019-01-08] MEDS ORDERED: Dulcolax 10 MG SUPP PR ONE (02:39)
[2019-01-08 03:22] LABS: Slide Review 1 YES
[2019-01-08 03:57] LABS: Appearance SLIGHTLY CLOUDY (CLEAR); Bilirubin NEGATIVE (NEGATIVE); Blood NEGATIVE Ery/ul (0-5); Glucose NEGATIVE (NEGATIVE); Ketones TRACE (NEGATIVE); Leukocyte Esterase NEGATIVE (NEGATIVE); Mucus MODERATE /HPF (NEGATIVE); Nitrite NEGATIVE (NEGATIVE); Protein,Urine Dip 30 (Negative); Specific Gravity 1.029 (1.005-1.025); Urobilinogen 4 mg/dL (0-1)
[2019-01-08] MEDS ORDERED: DILAUDID 2 MG INJECTION IV PRN (05:12)
[2019-01-08] MEDS ORDERED: TYLENOL 325 MG PO PRN (05:12)
[2019-01-08] MEDS ORDERED: Sodium Chloride 0.9% 1000 ML 1,000 ML IV SCH (05:12)
[2019-01-08] MEDS: Zofran 4 MG/2 ML VIAL IV PRN ×2 (07:18→21:13)
[2019-01-08 07:24] LABS: ANION GAP 13.9 MEQ/L (5-15); BLOOD UREA NITROGEN 29 mg/dL (9-20); CHLORIDE 107 mmol/L (98-107); Calcium 8.9 mg/dL (8.4-10.2); Carbon Dioxide 27 mmol/L (22-30); Creatinine 1 1.06 mg/dL (0.66-1.25); Glucose 119 mg/dL (74-106); Potassium 4.3 mmol/L (3.5-5.1); SODIUM 143 mmol/L (137-145)
[2019-01-08] MEDS ORDERED: EPINEPHRINE 0.3 MG IM PRN (08:21)
--- NOTE | 2019-01-08 08:27 | HP ---
CHIEF COMPLAINT: Abdominal pain and vomiting. HISTORY OF PRESENT ILLNESS: The patient is a 53 year-old white male patient who was seen in the office two days prior with complaints of abdominal discomfort and some diarrhea. It was felt that he likely had influenza at that time although his swab was negative. The patient was given a shot of Cel[place] but he continued to deteriorate in regards to his abdominal pain and the vomiting became persistent. The patient presented to the emergency room where he was found to have small bowel obstruction and was admitted to the hospital for further evaluation and management. PAST MEDICAL HISTORY: Otherwise significant for hypertension, hyperlipidemia, gout and allergic rhinitis. PAST SURGICAL HISTORY: Parathyroidectomy. Mesh placed for ventral hernia. Previous stents for kidney stones. PHYSICAL EXAMINATION: The patient's vital signs on admission showed his temperature to be 97.4F, pulse 80, respiratory rate 22, blood pressure 136/94. O2 saturation 100%. HEENT: Normocephalic, atraumatic. Pupils equal round reactive to light. Extraocular movements intact. Oropharynx is pink and moist. NECK: Supple without lymphadenopathy, thyromegaly or JVD. CHEST: Clear to auscultation. HEART: Regular rate and rhythm. ABDOMEN: Mildly tender in the epigastric region but otherwise is soft without palpable masses and with normal bowel sounds. EXTREMITIES: Without cyanosis, clubbing or edema. NEUROLOGIC: The patient is alert and oriented x3. No focal deficits were noted. LAB DATA AND TESTS: Laboratory studies thus far have shown his lactic acid to be 1.6. His white count was elevated at 13,200 with a mild left shift and 77.9% granulocytes. His hemoglobin was 13.6, PLT count 327,000. Sugar nonfasting 140. BUN 28, creatinine 1.40. Electrolytes were normal. Liver enzymes were normal. Amylase and lipase were normal. The patient had UA with specific gravity 1.029 and was otherwise essentially normal. CT scan however showed dilated small bowel measuring up to 6 cm, relative change near the abdominal wall mesh without abrupt transition point and the bowel caliber diminishing there after that point suspicious for dilated proximal small bowel obstruction. ASSESSMENT: The patient will be admitted to the hospital and placed at gut rest, IV fluid hydration and surgical consultation.
[2019-01-08] MEDS ORDERED: Epipen 0.3 MG IM PRN (08:32)
--- NOTE | 2019-01-08 09:28 | XRAY ---
Indication: Abdomen distention. Nausea, vomiting, and diarrhea. Multiple contiguous axial images obtained through the abdomen and pelvis without contrast as ordered. Comparison: None Lung bases again demonstrates mild bilateral dependent atelectasis and right base calcified granuloma. No infiltrate or effusion. Heart is not enlarged. New small hiatal hernia. Noncontrasted stomach unremarkable. Mid and left midabdomen small bowel loops are abnormally fluid distended up to 5.5 cm in diameter with tapering midabdomen level concerning for partial small bowel obstruction. More distal ileal bowel loops and colon are normal in caliber with normal bowel gas. Again minimal sigmoid diverticulosis. No free fluid/air. Again incidental 5 mm gallstone, calcified splenic granulomas, nonobstructing bilateral renal micro-calculi, and tiny left renal cortical cyst. Remaining liver, gallbladder, pancreas, spleen, adrenal glands, kidneys, ureters, bladder, and aorta appear unremarkable for noncontrast exam. Osseous structures intact again with minimal spinal degenerative changes. Stable intact midline ventral hernia mesh graft. Impression: 1. New finding partial small bowel obstruction as detailed. 2. New small hiatal hernia. 3. Stable tiny gallstone, sigmoid diverticulosis, nonobstructing bilateral renal micro-calculi, left renal cyst, and evidence for old granulomatous disease. Comment: Preliminary interpretation was made by C. No critical discrepancy. CT DI 18.44
[2019-01-08] MEDS: D5W/0.45NS W/ 20mEq KCl 1000 ML 1,000 ML IV SCH ×2 (09:32→15:35)
[2019-01-08] MEDS ORDERED: Flonase NASAL NS SCH (10:00)
[2019-01-08] MEDS ORDERED: Zestril 20 MG PO SCH (10:00)
[2019-01-08] MEDS ORDERED: PROTONIX 40 MG IV IV SCH (10:00)
[2019-01-08] MEDS ORDERED: NON-FORMULARY ITEM (Pravastatin Sodium [Pravastatin Sodium] 40 MG) PO SCH (22:00)
[2019-01-08] MEDS ORDERED: CLARITIN 10 MG PO SCH (22:00)
[2019-01-08] MEDS ORDERED: ZOCOR 20MG PO SCH (22:00)
[2019-01-08] MEDS ORDERED: REQUIP 2MG TAB PO SCH (22:00)
[2019-01-08] MEDS ORDERED: Zestril 10 MG PO SCH (22:00)
[2019-01-08] MEDS ORDERED: Flomax 0.4 MG PO SCH (22:00)
[2019-01-09 05:02] LABS: Hematocrit 40.2 % (42-50); Hemoglobin 13.1 gm/dl (12.5-18.0); Mean Corpuscular Hgb Concent. 32.6 g/dl (32-36); Mean Platelet Volume 9.6 fl (6-9.5); Platelet Count 241 K/mm3 (150-450); Red Blood Count 4.37 M/mm3 (4.1-5.6); Red Cell Distribution Width 13.8 % (11.5-14.0); White Blood Count 9.1 K/mm3 (4.0-10.5)
[2019-01-09 05:20] LABS: ALBUMIN 3.3 g/dL (3.5-5.0); ALKALINE PHOSPHATASE 58 U/L (38-126); ANION GAP 10.6 MEQ/L (5-15); BLOOD UREA NITROGEN 21 mg/dL (9-20); CHLORIDE 103 mmol/L (98-107); Calcium 8.7 mg/dL (8.4-10.2); Carbon Dioxide 30 mmol/L (22-30); Creatinine 1 1.06 mg/dL (0.66-1.25); Glucose 106 mg/dL (74-106); Potassium 4.4 mmol/L (3.5-5.1); SGOT/AST 17 U/L (17-59); SGPT/ALT 15 U/L (0-50); SODIUM 140 mmol/L (137-145); Total Protein 6.3 g/dL (6.3-8.2)
[2019-01-09 05:52] LABS: Eosinophil 2 % (0.00-3.0); Lymphocytes 21 % (24-44); Monocyte 7 % (0.0-12.0); Neutrophils 70 % (36.-66.); Platelet Estimate NORMAL (NORMAL); Poikilocytosis 2+; Total Cells Counted 100
[2019-01-09 05:53] LABS: ANISOCYTOSIS 1+; Polychromasia RARE; Toxic Granulation RARE
[2019-01-09] MEDS: D5W/0.45NS W/ 20mEq KCl 1000 ML 1,000 ML IV SCH ×2 (07:14→07:15)
[2019-01-09 07:36] VITALS: BP 133/85; PULSE 69; O2SAT 93
--- NOTE | 2019-01-09 08:26 | CONS ---
CONSULT DATE: 01/08/2019 REASON FOR CONSULT: Abdominal cramps possible bowel obstruction. HISTORY: A 53 year-old male had colonoscopy back when he was 51. It was basically satisfactory. He had EGD that did show small hiatal hernia. He has reflux esophagitis and he did apparently have some Kadi-Zapata tears that required banding. The patient had a ventral abdominal hernia with mesh back about 2003. He had discomfort afterwards and major episode of cramping underneath the anterior abdominal wall. He came here. He subsequently went to [place]. He had multiple tests. They basically said that it was probably related to adhesions against the mesh. He has done well in the last basically ten years. He said he was a little nauseated a few days ago. He has not been building up anything particularly. 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 He presented with severe vomiting. He vomited five or six times and he states the only discomfort he is having now is left over from the retching. PHYSICAL EXAMINATION: He is alert. He is not diaphoretic. His vital signs have been normal. ABDOMEN: Mildly distended. He has no peritoneal signs. He has no suggestion of mass or fullness underneath the anterior abdominal wall. His chart is reviewed. His white count was 13,000. He was slightly dehydrated. BUN 28, creatinine 1.4. His is present. He is hungry at this time. He has passed a generous amount of flatus and some stool. IMPRESSION: I suspect the patient does have anterior abdominal adhesions against his mesh. He probably has intermittent partial small bowel obstruction. At this time it looks like it has basically resolved or resolving. PLAN: I think we can advance his diet at discharge. This might require additional diagnostics or treatment in the future at some point.
--- NOTE | 2019-01-09 09:33 | DS ---
DISCHARGE DIAGNOSIS: PARTIAL SMALL BOWEL OBSTRUCTION. CLINICAL EDUCATION ASSISTANT: Dr. Gonzalez Guadalupe. HOSPITAL COURSE: The patient is a 53 year-old white male patient admitted to the hospital with abdominal pain and vomiting. The patient was seen in the emergency room and had CT scan evidence of small bowel obstruction. The patient was admitted to the hospital and placed at gut rest. He did have surgical consultation with Dr. Guadalupe who felt there was no surgical intervention needed at this time. The patient was placed at gut rest, given IV fluid hydration. By the next morning the patient was feeling better and he was given a diet. He has been able to tolerate since that time having some bowel movements. The patient does have history of mesh in the abdomen from abdominal surgery for hernia repair. CT scan showed dilatation of the small bowel with decompression distal to that area. The patient now wishes to go home. He was instructed to follow up with the surgeon next week and follow up in my office as well. He was given MiraLAX to keep his bowels moving so he does not have the complicating factor of constipation. He was given Zofran for nausea and instructed to have light meals throughout the day as opposed to large meals. He is to push fluids and if he starts getting nauseated that Zofran does not take care he is to be at gut rest. The patient realizes he may need surgery at some point. My plan is to do a small bowel follow through x-ray when he returns from an event he has in [place] that he has been planning for quite some time and he is insistent on going to. He will otherwise continue his usual medications as listed previously in the H&P.
== END 2019-01-09 08:44 | disposition home or self-care (01) ==
LOC: ED 00:22 → MED SURG 05:11
PROVIDERS: ADMIT Family Medicine; ATTEND Family Medicine
DX: K56.600 Partial intestinal obstruction, unspecified as to cause (principal); R11.2 Nausea with vomiting, unspecified; I10 Essential (primary) hypertension; E78.5 Hyperlipidemia, unspecified; K21.0 Gastro-esophageal reflux disease with esophagitis; K44.9 Diaphragmatic hernia without obstruction or gangrene
CPT/HCPCS: 36000; 36415; 74176; 80048; 80053; 81001; 82150; 83605; 83690; 85025; 96360; 96361; 96374; 96375; 99285; G0378; 99284; J1170; J2405; A9270-GY

== ENCOUNTER 2019-02-27 09:55 | Day surgery (SDC) | payer OTHER ==
--- NOTE | 2019-02-27 07:31 | HP ---
DATE OF SURGERY: 02/27/2019 ADMISSION DIAGNOSIS: ANTICIPATED PROCEDURE: Enterolysis. HISTORY OF PRESENT ILLNESS: The patient presents for laparoscopic enterolysis. He has had two hospital admissions for bowel obstruction. Upper GI negative. Still having recurrent intermittent discomfort, presents for laparoscopy probable adhesiolysis. PAST MEDICAL HISTORY: Hypertension. Acid reflux. Hyperlipidemia. IgA nephropathy. ALLERGIES: PENICILLIN. IODINATED CONTRAST MEDIA. SHELLFISH. MEDICATIONS: Omeprazole, Allopurinol, loratadine, lisinopril, Flomax. PAST SURGICAL HISTORY: Parathyroid surgery. Hernia surgery. Knee surgery. Wrist surgery. Lithotripsy. SOCIAL HISTORY: Negative tobacco. Positive ETOH. FAMILY HISTORY: Negative. PHYSICAL EXAMINATION: VITAL SIGNS: Normal. CHEST: Clear. COR: Regular. ABDOMEN: Satisfactory today. IMPRESSION/PLAN: Laparoscopic enterolysis.
[~2019-02-27 09:55] MED LIST: Lactated Ringers 1,000 ML IV ONE; Sensorcaine 0.25% 10 ML ONE
[2019-02-27] MEDS ORDERED: Lactated Ringers 1,000 ML IV SCH (10:30)
[2019-02-27] MEDS ORDERED: Lactated Ringers 1,000 ML IV ONE (10:33)
[2019-02-27] MEDS ORDERED: Levofloxacin 500MG/100ML D5W 500 MG/100 ML BAG IV ONE (10:43)
[2019-02-27] MEDS ORDERED: Levofloxacin 500MG/100ML D5W 500 MG/100 ML BAG IV SCH (10:45)
[2019-02-27] MEDS ORDERED: CLINDAMYCIN-D5W 900 MG/50 ML*** 900 MG/50 ML BAG IV SCH (11:00)
[2019-02-27 11:04] LABS: ANION GAP 10.7 MEQ/L (5-15); BLOOD UREA NITROGEN 19 mg/dL (9-20); CHLORIDE 108 mmol/L (98-107); Calcium 9.2 mg/dL (8.4-10.2); Carbon Dioxide 26 mmol/L (22-30); Creatinine 1 0.87 mg/dL (0.66-1.25); Glucose 102 mg/dL (74-106); Potassium 4.2 mmol/L (3.5-5.1); SODIUM 141 mmol/L (137-145)
[2019-02-27] MEDS ORDERED: SUBLIMAZE 250 MCG/5 ML ONE (13:04)
[2019-02-27] MEDS ORDERED: Versed 2 MG/2 ML Injection ONE (13:04)
[2019-02-27] MEDS ORDERED: DIPRIVAN 200 MG/20 ML IV ONE (13:04)
[2019-02-27] MEDS ORDERED: Zemuron 100 MG/10 ML ONE ×2 (13:04→13:56)
[2019-02-27] MEDS ORDERED: Sensorcaine 0.25% 10 ML ONE (13:11)
[2019-02-27] MEDS ORDERED: PHENYLEPHRINE HCL ONE (13:33)
[2019-02-27] MEDS ORDERED: ROBINUL ONE (13:35)
[2019-02-27] MEDS ORDERED: Ephedrine Sulfate 50 MG/ML ONE (13:36)
[2019-02-27] MEDS ORDERED: BRIDION 200MG/2ML IV ONE (14:27)
[2019-02-27] MEDS ORDERED: Zofran 4 MG/2 ML VIAL ONE (14:44)
[2019-02-27] MEDS ORDERED: DILAUDID 2 MG INJECTION ONE (14:44)
[2019-02-27] MEDS ORDERED: SUBLIMAZE 100 MCG/2 ML ONE (14:44)
[2019-02-27] MEDS ORDERED: Zofran 4 MG/2 ML VIAL IV STA (15:37)
[2019-02-27 16:06] VITALS: BP 141/95; PULSE 78; O2SAT 95
[2019-02-27] MEDS ORDERED: MORPHINE SULFATE 2 MG INJ IV PRN (16:29)
[2019-02-27] MEDS ORDERED: MORPHINE SULFATE 4 MG INJ IV PRN (16:30)
[2019-02-27] MEDS ORDERED: Norco 10/325 MG Tablet PO PRN (16:30)
[2019-02-27] MEDS ORDERED: Zofran 4 MG/2 ML VIAL IV PRN (16:30)
--- NOTE | 2019-03-03 08:07 | OP ---
SURGERY DATE/TIME: 02/28/2019 1305 PREOPERATIVE DIAGNOSIS: Recurrent small bowel obstruction. POSTOPERATIVE DIAGNOSES: 1) Small bowel obstruction secondary to severe adhesions and angulation and kinking against the anterior abdominal wall previously placed mesh. 2) Loosening of the previously placed mesh in the upper half. PROCEDURES: 1) Enterolysis of three loops of small bowel from the anterior abdominal wall taking approximately an hour. 2) Omental lysis from the anterior abdominal wall i.e. and mesh. 3) Refixation i.e. revision of a previous ventral hernia with mesh revising the mesh repair retacking the upper half of the mesh to the abdominal wall. SURGEON: Gonzalez Guadalupe M.D. ANESTHESIA: General. COMPLICATIONS: None. CONDITION: Stable. INDICATION: The patient has had multiple bowel obstructions. A fairly robust gentleman. He did have umbilical hernia laparoscopically some time ago. DESCRIPTION OF PROCEDURE: He was taken to surgery. General anesthetic. Routine prep and drape. Veress needle right upper quadrant. There was a ball of omentum and three loops of bowel stuck against the anterior abdominal wall and the mesh. It took about an hour to take this down. Very meticulous sharp dissection of the small bowel ligature of the omentum only. The upper half of the mesh was loose. It was refixated with an EndoTacker. At this time it looked very satisfactory. There was no suggestion of issue with the bowels. The bowels were laying back in the abdomen. Omentum satisfactory. Anterior abdominal wall was then tacked down with the reinforcement and retacking of the previous mesh. Skin closed with 4-0 Vicryl and Steri-Strips. The patient tolerated the procedure satisfactorily.
== END 2019-02-27 16:17 | disposition home or self-care (01) ==
LOC: SDC 09:55
PROVIDERS: ATTEND Surgery
DX: K56.51 Intestinal adhesions [bands], with partial obstruction (principal); T83.728A Exposure of other implanted mesh into organ or tissue, initial encounter; I10 Essential (primary) hypertension; E78.5 Hyperlipidemia, unspecified; K21.9 Gastro-esophageal reflux disease without esophagitis; Z79.899 Other long term (current) drug therapy
CPT/HCPCS: 36415; 80048; J1170; J1956; J2250; J2370; J2405; J2704; J3010

== ENCOUNTER 2019-03-10 17:46 | Inpatient (IN) | payer OTHER ==
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
[2019-03-10] MEDS ORDERED: Sodium Chloride 0.9% 1000 ML 1,000 ML IV STA (18:11)
[2019-03-10] MEDS ORDERED: BENADRYL 50 MG/ML IV ONE (18:11)
[2019-03-10] MEDS ORDERED: MORPHINE SULFATE 2 MG INJ IV ONE (18:11)
[2019-03-10] MEDS ORDERED: Reglan 10 MG/2 ML IV ONE (18:11)
[2019-03-10] MEDS ORDERED: solu-MEDROL 125 MG IV ONE (18:14)
[2019-03-10] MEDS ORDERED: Sodium Chloride 0.9% 1000 ML 1,000 ML ONE (18:16)
[2019-03-10] MEDS ORDERED: Reglan 10 MG/2 ML ONE (18:16)
[2019-03-10] MEDS ORDERED: solu-MEDROL 125 MG ONE (18:16)
[2019-03-10] MEDS ORDERED: BENADRYL 50 MG/ML ONE (18:16)
[2019-03-10] MEDS ORDERED: MORPHINE SULFATE 2 MG INJ ONE (18:16)
[2019-03-10 18:51] LABS: Absolute Neutrophil Ct (ANC) 8.86 (1.4-6.9); BASOPHIL % 0.2 % (0.0-0.4); Basophil (Absolute #) 0.02 (0-0.4); Eosinophil % 1.9 % (0.00-5.0); Eosinophil (Absolute #) 0.22 (0-0.5); Hematocrit 46.5 % (42-50); Hemoglobin 15.6 gm/dl (12.5-18.0); Lymphocyte (Absolute #) 2.04 (1.0-4.6); Lymphocytes % 17.2 % (24.0-44.0); Mean Cell Volume 86.3 fl (78-100); Mean Corpuscular Hemoglobin 28.9 pg (26-32); Mean Corpuscular Hgb Concent. 33.5 g/dl (32-36); Mean Platelet Volume 9.9 fl (6-9.5); Monocyte (Absolute #) 0.74 (0.0-1.3); Monocytes % 6.2 % (0.0-12.0); Neutrophil % 74.5 % (36.0-66.0); Platelet Count 327 K/mm3 (150-450); Red Blood Count 5.39 M/mm3 (4.1-5.6); Red Cell Distribution Width 13.8 % (11.5-14.0); White Blood Count 11.9 K/mm3 (4.0-10.5)
[2019-03-10 19:04] LABS: ALBUMIN 4.4 g/dL (3.5-5.0); ALKALINE PHOSPHATASE 117 U/L (38-126); ANION GAP 12.4 MEQ/L (5-15); BLOOD UREA NITROGEN 16 mg/dL (9-20); CHLORIDE 102 mmol/L (98-107); Calcium 9.9 mg/dL (8.4-10.2); Carbon Dioxide 29 mmol/L (22-30); Creatinine 1 0.99 mg/dL (0.66-1.25); Glucose 107 mg/dL (74-106); LIPASE 57 U/L (23-300); Potassium 3.6 mmol/L (3.5-5.1); SGOT/AST 22 U/L (17-59); SGPT/ALT 22 U/L (0-50); SODIUM 140 mmol/L (137-145); Total Protein 8.1 g/dL (6.3-8.2)
[2019-03-10] MEDS ORDERED: Hydromorphone 1 mg/ml Ampule ONE (20:22)
[2019-03-10] MEDS ORDERED: Hydromorphone 1 mg/ml Ampule IV ONE ×2 (20:23→23:55)
[2019-03-10 20:45] LABS: Appearance CLEAR (CLEAR); Bilirubin NEGATIVE (NEGATIVE); Blood NEGATIVE Ery/ul (0-5); Glucose NEGATIVE (NEGATIVE); Ketones NEGATIVE (NEGATIVE); Leukocyte Esterase NEGATIVE (NEGATIVE); Mucus SLIGHT /HPF (NEGATIVE); Nitrite NEGATIVE (NEGATIVE); Protein,Urine Dip NEGATIVE (Negative); Specific Gravity 1.009 (1.005-1.025); Urobilinogen NEGATIVE mg/dL (0-1)
[2019-03-10] MEDS ORDERED: Ativan 2 MG/1 ML VIAL IV PRN (23:54)
[2019-03-11] MEDS ORDERED: Ativan 2 MG/1 ML VIAL ONE
[2019-03-11] MEDS ORDERED: Hydromorphone 1 mg/ml Ampule ONE
[2019-03-11] MEDS ORDERED: Zofran 4 MG/2 ML VIAL IV PRN (02:32)
[2019-03-11] MEDS: Sodium Chloride 0.9% W/ 20 mEq KCl/LITER 1,000 ML IV SCH ×4 (02:38→22:28)
[2019-03-11] MEDS ORDERED: CHLORASEPTIC SPRAY 180 ML PO PRN (03:06)
[2019-03-11] MEDS: PROTONIX 40 MG IV IV SCH ×2 (03:15→08:59)
[2019-03-11] MEDS: DILAUDID 2 MG INJECTION IV PRN (04:58)
[2019-03-11 06:01] LABS: Absolute Neutrophil Ct (ANC) 12.11 (1.4-6.9); BASOPHIL % 0.1 % (0.0-0.4); Basophil (Absolute #) 0.01 (0-0.4); Eosinophil % 0.2 % (0.00-5.0); Eosinophil (Absolute #) 0.02 (0-0.5); Hematocrit 42.6 % (42-50); Hemoglobin 14.3 gm/dl (12.5-18.0); Lymphocyte (Absolute #) 0.83 (1.0-4.6); Lymphocytes % 6.3 % (24.0-44.0); Mean Cell Volume 85.4 fl (78-100); Mean Corpuscular Hemoglobin 28.7 pg (26-32); Mean Corpuscular Hgb Concent. 33.6 g/dl (32-36); Mean Platelet Volume 9.9 fl (6-9.5); Monocyte (Absolute #) 0.11 (0.0-1.3); Monocytes % 0.8 % (0.0-12.0); Neutrophil % 92.6 % (36.0-66.0); Platelet Count 325 K/mm3 (150-450); Red Blood Count 4.99 M/mm3 (4.1-5.6); Red Cell Distribution Width 13.6 % (11.5-14.0); White Blood Count 13.1 K/mm3 (4.0-10.5)
[2019-03-11 06:10] LABS: ALBUMIN 3.8 g/dL (3.5-5.0); ALKALINE PHOSPHATASE 93 U/L (38-126); ANION GAP 12.7 MEQ/L (5-15); BLOOD UREA NITROGEN 15 mg/dL (9-20); CHLORIDE 107 mmol/L (98-107); Calcium 9.3 mg/dL (8.4-10.2); Carbon Dioxide 24 mmol/L (22-30); Creatinine 1 0.78 mg/dL (0.66-1.25); Glucose 148 mg/dL (74-106); Potassium 3.8 mmol/L (3.5-5.1); SGOT/AST 17 U/L (17-59); SGPT/ALT 19 U/L (0-50); SODIUM 140 mmol/L (137-145); Total Protein 7.1 g/dL (6.3-8.2)
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
--- NOTE | 2019-03-11 08:51 | XRAY ---
Indication: Abdomen pain 2 days. Status post laparoscopy February 27, 2019. Multiple contiguous axial images obtained through the abdomen and pelvis without contrast as ordered. Comparison: January 08, 2019. Lung bases again demonstrates bilateral atelectasis/scarring and right base calcified granuloma. Heart is not enlarged. Stable small hiatal hernia. Noncontrasted stomach unremarkable. Small bowel loops are again fluid distended up to 5 cm in diameter with fluid leveling. Small bowel loops again demonstrates tapering mid abdomen favoring partial small bowel obstruction. There is distal colonic bowel gas with stable minimal sigmoid diverticulosis. No free fluid/air. Stable tiny gallstone, calcified splenic granulomas, nonobstructing bilateral renal micro-calculi, and intact ventral mesh graft. Remaining liver, pancreas, adrenal glands, ureters, bladder, and aorta appear unremarkable for noncontrast exam. Osseous structures again demonstrates minimal degenerative changes throughout the thoracolumbar spine. Impression: 1. Again fluid distended small bowel loops with tapering mid abdomen and fluid leveling favoring partial small bowel obstruction. 2. Stable hiatal hernia, gallstone, sigmoid diverticulosis, nonobstructing bilateral renal micro-calculi, and evidence for old granulomatous disease. CT DI 18.18
[2019-03-11] MEDS: Ativan 2 MG/1 ML VIAL IV PRN ×2 (08:59→20:35)
[2019-03-12] MEDS: Ativan 2 MG/1 ML VIAL IV PRN (02:59)
[2019-03-12] MEDS: DILAUDID 2 MG INJECTION IV PRN (02:59)
[2019-03-12] MEDS: Sodium Chloride 0.9% W/ 20 mEq KCl/LITER 1,000 ML IV SCH ×2 (05:15→13:56)
[2019-03-12] MEDS: PROTONIX 40 MG IV IV SCH (09:33)
[2019-03-12] MEDS ORDERED: Zestril 20 MG PO ONE (12:58)
--- NOTE | 2019-03-12 14:10 | PCM.NOTE ---
Date and Time: 03/12/19 1407 Subjective Assessment: Patient reports NG tube came out this AM; surgeon wants to try liquids. He has not had any of his regular home medications and bp higher now. - Review of Systems Constitutional: No Symptoms Respiratory: No Symptoms Cardiac: No Symptoms Abdominal/Gastrointestinal: Abdominal Pain, Nausea Genitourinary Symptoms: No Symptoms Musculoskeletal: No Symptoms Skin: No Symptoms Objective Exam General Appearance: no apparent distress, alert Neurologic Exam: alert, cooperative, normal mood/affect Skin Exam: normal color, warm, dry, No rash Respiratory Exam: normal breath sounds, lungs clear, No crackles/rales, No rhonchi, No wheezing Cardiovascular Exam: regular rate/rhythm, normal heart sounds, No murmur, No friction rub, No gallop Gastrointestinal/Abdomen Exam: soft, normal bowel sounds, tenderness, No distention, No mass Extremity Exam: normal inspection, other (no c/c/e) OBJECTIVE DATA Vital Signs: Vital Signs - 24 hr Temp Pulse Resp BP Pulse Ox 03/12/19 12:22 97.7 F 78 20 163/95 98 03/12/19 07:50 98.1 F 92 H 20 144/85 96 03/12/19 04:00 98.5 F 94 H 20 157/99 96 03/12/19 00:00 98.6 F 84 20 146/87 95 03/11/19 20:00 98.6 F 78 18 153/92 98 03/11/19 16:00 97.9 F 86 18 157/92 95 Pain Assessment - Last Documented Pain Intensity 4 Pain Scale Used [facility] Intake and Output: Intake & Output 03/10/19 03/11/19 03/12/19 03/13/19 06:59 06:59 06:59 06:59 Intake Total 1629 3266 240 Output Total 350 3450 875 Balance 2529 184 -415 Weight 116.3 kg Radiology Exams: Radiology Procedures Category Date Time Status ABDOMEN AND PELVIS W/0 CONTRAS [CT] Stat Exams 03/10/19 18:14 Completed Multi-Disciplinary Progress Notes: Multi-Disciplinary Progress Notes 03/11/19 16:19 Case Management Note by Ghassan,Gifty spoke with pt and pt's at bedside, pt denies any needs at discharge at this time. will continue to monitor. Initialized on 03/11/19 16:19 - END OF NOTE Assessment/Plan (1) Small bowel obstruction Current Visit: Yes Status: Acute Assessment & Plan: Management per surgeons Code(s): K56.609 - UNSP INTESTNL OBST, UNSP TO PARTIAL VERSUS COMPLETE OBST (2) Hypertension Current Visit: Yes Status: Acute Assessment & Plan: Restart home dose of lisinopril. Code(s): I10 - ESSENTIAL (PRIMARY) HYPERTENSION (3) BPH (benign prostatic hyperplasia) Current Visit: Yes Status: Acute Assessment & Plan: restart flomax Code(s): N40.0 - BENIGN PROSTATIC HYPERPLASIA WITHOUT LOWER URINRY TRACT SYMP
[2019-03-12] MEDS ORDERED: ZYLOPRIM 300 MG PO SCH (22:00)
[2019-03-12] MEDS ORDERED: Flomax 0.4 MG PO SCH (22:00)
[2019-03-12] MEDS ORDERED: Requip 0.5 MG PO SCH (22:00)
[2019-03-12] MEDS ORDERED: ZOCOR 20MG PO SCH (22:00)
[2019-03-13] MEDS: Sodium Chloride 0.9% W/ 20 mEq KCl/LITER 1,000 ML IV SCH (04:34)
[2019-03-13] MEDS ORDERED: CLARITIN 10 MG PO SCH (10:00)
[2019-03-13] MEDS ORDERED: Zestril 20 MG PO SCH (10:00)
--- NOTE | 2019-03-13 12:45 | PCM.NOTE ---
Date and Time: 03/13/19 1242 Subjective Assessment: Patient reports bowel movements and feeling better. He is getting a small bowel follow through ordered by the surgeon right now. He states blood pressure at home is usually 120's over 80's. He did not sleep well last night. - Review of Systems Respiratory: No Symptoms Cardiac: No Symptoms Abdominal/Gastrointestinal: Other (gurgeling in belly with barium taken for study), No Nausea, No Vomiting, No Diarrhea, No Constipation Genitourinary Symptoms: No Symptoms Musculoskeletal: No Symptoms Skin: No Symptoms Objective Exam General Appearance: no apparent distress, alert Neurologic Exam: alert, cooperative, normal mood/affect Skin Exam: normal color, warm, dry, No rash Respiratory Exam: normal breath sounds, lungs clear, No crackles/rales, No rhonchi, No wheezing Cardiovascular Exam: regular rate/rhythm, normal heart sounds, No murmur, No friction rub, No gallop Gastrointestinal/Abdomen Exam: soft, normal bowel sounds, No tenderness, No distention, No mass OBJECTIVE DATA Vital Signs: Vital Signs - 24 hr Temp Pulse Resp BP Pulse Ox 03/13/19 07:02 97.8 F 66 16 151/92 93 L 03/13/19 04:00 98.0 F 77 20 152/87 95 03/13/19 00:00 97.9 F 66 18 136/91 96 03/12/19 20:00 98.2 F 76 20 149/92 94 L 03/12/19 16:37 97.6 F 68 20 159/89 97 Pain Assessment - Last Documented Pain Intensity 4 Pain Scale [facility] Intake and Output: Intake & Output 03/11/19 03/12/19 03/13/19 03/14/19 06:59 06:59 06:59 06:59 Intake Total 1629 3266 4095 120 Output Total 350 3450 5400 Balance 1279 -184 -1305 120 Weight 116.3 kg Radiology Exams: Radiology Procedures Category Date Time Status UGI W/SMALL BOWEL FOLLOW THRU Routine Exams 03/13/19 Ordered Assessment/Plan (1) Small bowel obstruction Current Visit: Yes Status: Acute Assessment & Plan: Management per surgeon. From my perspective as soon as the general surgeon says he can be discharged I am fine with him being discharged from a medical perspective. Code(s): K56.609 - UNSP INTESTNL OBST, UNSP TO PARTIAL VERSUS COMPLETE OBST (2) Hypertension Current Visit: Yes Status: Acute Assessment & Plan: Better controlled. He has good control at home. Reports he has his medications at home. Code(s): I10 - ESSENTIAL (PRIMARY) HYPERTENSION (3) BPH (benign prostatic hyperplasia) Current Visit: Yes Status: Acute Assessment & Plan: Stable on flomax. Code(s): N40.0 - BENIGN PROSTATIC HYPERPLASIA WITHOUT LOWER URINRY TRACT SYMP
--- NOTE | 2019-03-13 12:56 | CONS ---
CONSULT DATE: 03/11/2019 HISTORY: He had an operation about two weeks for small bowel obstruction and had multiple loops of small bowel lysed from anterior abdominal wall. He did very well initially. He just started feeling full and nauseated the day prior to admission and then had some vomiting. He had films consistent with partial bowel obstruction. His abdomen was moderately distended fairly central in nature. He did not appear toxic. He did have IV fluid and NPO status. Today, he has had some bowel action and seems to be resolving. He was started on full liquids. Hopefully he will be able to be advanced tomorrow and if not we will do a small bowel follow through. IMPRESSION: Post-operative partial bowel obstruction.
--- NOTE | 2019-03-13 13:25 | XRAY ---
Indication: Lower abdominal pain. Ileus. History small bowel obstruction. Comparison: January 27, 2019. 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 Solid organs and osseous structures unremarkable. Double contrast upper GI exam was performed. Patient ingested barium without miss swallow or aspiration. Esophagus is again normal. Barium freely emptied into the stomach. No hiatal hernia. Again spontaneous gastroesophageal reflux with now column of barium up to the level of the thoracic inlet. Stomach is normally distended again without filling defect or acute ulcerations. Normal duodenal cap and sweep. Small bowel follow-through demonstrates normal antegrade movement of the barium to the level of the ascending colon within 2 hours. Spot compression of the small bowel loops again negative for focal stricture, obstruction, filling defect or inflammatory changes. Normal ileocecal junction. Impression: 1. Spontaneous gastroesophageal reflux. 2. Remaining double contrast upper GI exam is negative. 3. Negative small bowel follow-through exam. 4. 1.5 minute fluoroscopy used.
--- NOTE | 2019-03-13 14:09 | PROG NOTE ---
HISTORY: The patient is seen in the radiology department. He is getting his upper GI and small bowel follow through. He is doing fairly well. He did have bowel movement. He does have some gas. On today's plain abdominal x-ray there is one small bowel loop in the mid abdomen that is slightly concerning. On the first half of his upper GI small bowel follow through was inspected personally with the radiologist. He does have esophageal reflux disease fairly substantial. The dye is passing on through. It is about midway in the abdomen at this time. The rest of the study is pending. To date the study is satisfactory but there is still about half of the study that needs to be completed. We will advance his diet and his disposition pending how the small bowel follow through finishes here in the next hour or two.
[2019-03-13 16:42] VITALS: BP 171/88; PULSE 78; O2SAT 97
[2019-03-13] MEDS: PROTONIX 40 MG IV IV SCH (16:43)
--- NOTE | 2019-03-14 13:38 | DS ---
DISCHARGE DIAGNOSES: 1) SMALL BOWEL OBSTRUCTION NOW RESOLVED. 2) HYPERTENSION. 3) BENIGN PROSTATIC HYPERTROPHY. DISCHARGE PHYSICAL EXAMINATION: VITALS: Temperature current 97.8F, temperature max 98.2F, heart rate 66 to 76, respiratory rate 18 to 20, blood pressure 136 to 159 over 87 to 92. Oxygen saturation 94 to 97% on room air. GENERAL: The patient is sitting up in chair in no acute distress. CVS: He has a regular rate and rhythm. No murmurs, gallops or rubs. CHEST: Clear to auscultation bilaterally. ABDOMEN: Soft, nontender, nondistended with normal bowel sounds. EXTREMITIES: No clubbing, cyanosis or edema. SKIN: Warm, dry and intact. HOSPITAL COURSE: 1) SMALL BOWEL OBSTRUCTION NOW RESOLVED: A surgeon saw him during his stay. They did upper GI with a small bowel follow through and stated that it looked normal. From his perspective he could be discharged home. He was also medically stable and wanting to be discharged so he was. 2) HYPERTENSION: He reports he is better controlled at home, will continue with current antihypertensive and have his follow up with his primary care doctor, Dr. Blunt. 3) BENIGN PROSTATIC HYPERTROPHY: He is restarted on Flomax, this was stable during the hospitalization. DISCHARGE MEDICATIONS: Please see the discharge order. FOLLOW UP: Follow up with Dr. Blunt and the general surgeon. DISPOSITION: The patient was discharged to home in fair condition.
== END 2019-03-13 17:10 | disposition home or self-care (01) | DRG 390 ==
LOC: ED 17:46 → MED SURG 03-11 02:28
PROVIDERS: ADMIT Family Medicine; ATTEND Family Medicine
DX: K56.609 Unspecified intestinal obstruction, unspecified as to partial versus complete obstruction (principal); I10 Essential (primary) hypertension; N40.0 Benign prostatic hyperplasia without lower urinary tract symptoms; E78.00 Pure hypercholesterolemia, unspecified; M10.9 Gout, unspecified; K21.9 Gastro-esophageal reflux disease without esophagitis; Z98.890 Other specified postprocedural states; Z80.0 Family history of malignant neoplasm of digestive organs
CPT/HCPCS: 36000; 36415; 74176; 74249; 80053; 81001; 83690; 85025; 96360; 96374; 96375; 99284; J1170; J1200; J2060; J2270; J2405; J2930; A9270-GY

== ENCOUNTER 2019-04-23 06:53 | Emergency (ER) | payer OTHER ==
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
[2019-04-23] MEDS ORDERED: TYLENOL 325 MG PO STA (07:23)
[2019-04-23] MEDS ORDERED: TYLENOL 325 MG ONE (07:24)
[2019-04-23] MEDS ORDERED: Adacel Vial IM ONE ×2 (07:27→07:28)
[2019-04-23 07:45] VITALS: BP 165/114; PULSE 72; O2SAT 96
== END 2019-04-23 07:47 | disposition short-term general hospital (02) ==
LOC: ED 06:53
DX: S01.21XA Laceration without foreign body of nose, initial encounter (principal); W20.8XXA Other cause of strike by thrown, projected or falling object, initial encounter; Y93.89 Activity, other specified; Y92.238 Other place in hospital as the place of occurrence of the external cause; Y99.0 Civilian activity done for income or pay; I10 Essential (primary) hypertension
CPT/HCPCS: 90471; 90715; 99284; A9270-GY

== ENCOUNTER 2020-05-06 09:34 | Day surgery (SDC) | payer OTHER ==
[~2020-05-06 09:34] MED LIST changes: +Lactated Ringers 1,000 ML IV SCH; -Sensorcaine 0.25% 10 ML ONE
[2020-05-06] MEDS ORDERED: Versed 2 MG/2 ML Injection ONE (09:50)
[2020-05-06] MEDS ORDERED: DIPRIVAN 200 MG/20 ML IV ONE ×2 (09:50→11:39)
--- NOTE | 2020-05-06 12:37 | OP ---
SURGERY DATE/TIME: 05/06/2020 1130 PREOPERATIVE DIAGNOSES: 1) Epigastric discomfort, chronic gastroesophageal reflux disease and a history of lodged food bolus with perforation on retrieval in [place]. 2) Follow up of polyps. POSTOPERATIVE DIAGNOSES: He had one very significant distal descending colon polyp that was taken. PROCEDURES: 1) EGD. 2) Colonoscopy complete to cecum with hot polypectomy x1. SURGEON: Gonzalez Guadalupe M.D. ANESTHESIA: MAC. COMPLICATIONS: None. CONDITION: Stable. INDICATION: The patient has chronic symptoms gastroesophageal reflux disease. He had a previous stricture, previous hang up. He had previous perforation on retrieval down in [place]. He has persistent symptomatology. He has not had a recent endoscopic examination. He is due for a polyp exam. He has a history of polyps. DESCRIPTION OF PROCEDURE: He was taken to endoscopy. Left lateral decubitus position. Pharyngoesophageal junction was normal. Esophagus normal down to gastroesophageal junction. I did not see any signs of scarring here. The gastroesophageal junction actually looked good today. There was no visible hiatal hernia although he did have a fairly profound anesthetic. The fundus, body and antrum normal. Pylorus normal. Duodenal bulb normal. Second portion normal. The scope withdrawn. Back in the stomach there was no fluid in the stomach at all. No retained material and looking back up the hiatus it was satisfactory from below. The scope is withdrawn. Anal digital examination satisfactory. Scope advanced to the cecum. Base of cecum, ileocecal valve and appendiceal orifice normal. Ascending, hepatic, transverse, splenic, descending, distal descending a 1 cm polyp was taken with hot biopsy forceps to extinction. There was mild diverticulosis of the sigmoid. The rectum and the anus were satisfactory. The patient tolerated the procedure well. PLAN: Follow up in three years and return for his report of his polypectomy short term.
[2020-05-06 13:04] VITALS: BP 135/80; PULSE 71; O2SAT 97
== END 2020-05-06 12:50 | disposition home or self-care (01) ==
LOC: SDC 09:34
PROVIDERS: ATTEND Surgery
DX: K21.9 Gastro-esophageal reflux disease without esophagitis (principal); D12.4 Benign neoplasm of descending colon; Z09 Encounter for follow-up examination after completed treatment for conditions other than malignant neoplasm; Z86.010 Personal history of colon polyps; K57.30 Diverticulosis of large intestine without perforation or abscess without bleeding; Z79.899 Other long term (current) drug therapy; N02.8 Recurrent and persistent hematuria with other morphologic changes; E11.9 Type 2 diabetes mellitus without complications; E78.5 Hyperlipidemia, unspecified
CPT/HCPCS: 82947; J2250; J2704

== ENCOUNTER 2021-11-18 06:56 | Day surgery (SDC) | payer OTHER ==
[~2021-11-18 06:56] MED LIST changes: -Lactated Ringers 1,000 ML IV ONE; -Lactated Ringers 1,000 ML IV SCH; +Marcaine Mpf 0.5% Vial 30 Ml ONE; +XYLOCAINE 1% HCL 20 ML MDV ONE
[2021-11-18] MEDS ORDERED: Lactated Ringers 1,000 ML IV ONE (07:35)
[2021-11-18] MEDS ORDERED: CLINDAMYCIN-D5W 900 MG/50 ML*** 900 MG/50 ML BAG IV ONE (07:35)
[2021-11-18] MEDS ORDERED: Lactated Ringers 1,000 ML IV SCH (08:00)
[2021-11-18] MEDS ORDERED: CLINDAMYCIN-D5W 900 MG/50 ML*** 900 MG/50 ML BAG IV SCH (08:00)
[2021-11-18] MEDS ORDERED: BRIDION 200MG/2ML IV ONE ×2 (08:57→09:40)
[2021-11-18] MEDS ORDERED: SUBLIMAZE 100 MCG/2 ML ONE (09:40)
[2021-11-18] MEDS ORDERED: DIPRIVAN 200 MG/20 ML IV ONE (09:40)
[2021-11-18] MEDS ORDERED: Decadron 4 MG INJ ONE (09:40)
[2021-11-18] MEDS ORDERED: TORAdol 30 mg Injection ONE (09:40)
[2021-11-18] MEDS ORDERED: Xylocaine-Mpf 2% 5 Ml Vial ONE (09:40)
[2021-11-18] MEDS ORDERED: Zofran 4 MG/2 ML VIAL ONE (09:40)
[2021-11-18] MEDS ORDERED: Zemuron 100 MG/10 ML ONE (09:40)
--- NOTE | 2021-11-18 11:02 | XRAY ---
Indication: Left calcaneal navicular resection. Intraoperative fluoroscopy provided for 1 minute 26 seconds. 7 digital spot images submitted for interpretation demonstrates instrumentation of the calcaneal navicular articulation. Correlate with intraoperative findings/report.
[2021-11-18 12:15] VITALS: BP 121/60; PULSE 72; O2SAT 94
[2021-11-18] MEDS ORDERED: NORCO 5/325 MG PO ONE (12:22)
[2021-11-18] MEDS ORDERED: Ephedrine Sulfate 50 MG/ML ONE (12:31)
--- NOTE | 2021-11-18 12:56 | XRAY ---
1 minute and 26 seconds fluoroscopy time in surgery for calcaneonavicular resection of the left foot.
--- NOTE | 2021-11-18 13:04 | OP ---
SURGERY DATE/TIME: 11/18/2021 0930 PREOPERATIVE DIAGNOSIS: Calcaneonavicular coalition and left foot pain. POSTOPERATIVE DIAGNOSIS: Calcaneonavicular coalition and left foot pain. PROCEDURE: Excision of calcaneonavicular coalition and interposition of extensor digitorum brevis muscle belly. SURGEON: Juan Fletcher DPM. CABLE MAKER: None. ANESTHESIA: General plus a postoperative local block. See injectables for details. HEMOSTASIS: Ankle tourniquet set to 250 mm of Mercury for 40 minutes. ESTIMATED BLOOD LOSS: Less than 10 cc. MATERIALS: Bone wax, 2-0 Vicryl, 3-0 Nylon. INJECTABLES: 30 cc of 1:1 mixture of 1% lidocaine plain and 0.5% bupivacaine plain injected in ankle block-type fashion to left ankle postoperatively. INDICATION FOR SURGERY: Odell is a very pleasant 56-year-old male who presented to my office for concerns of pain over the lateral aspect of his foot. The patient did have some restriction in mobility to subtalar joint. On imaging it did appear that there was either a fracture of the anterior process of the calcaneus or a combination of a fibrous and osseous calcaneonavicular coalition. Upon injection the patient did have significant relief of his symptomatology. The patient wished to proceed due to the fact that he had on and off again pain for a significant amount of time in relation to the restriction of range of motion and the coalition itself. For that the patient was advised success rates of resection of calcaneonavicular coalitions to be 81 to 85% based on literature. He is aware of this. He is also aware of the possibility of complications and risks consisting of but not limited to infection, hematoma, seroma, possibility of nonskin healing, delayed skin healing, possibility of failure of surgical outcome and possible need for surgical intervention at a later date. The patient understands all of these risks and wishes to proceed. Plenty of time was allowed for the patient to ask questions prior to the procedure which were answered to his apparent satisfaction. No guarantees were provided as to the outcome. It is with that we decided to proceed. DESCRIPTION OF PROCEDURE AND FINDINGS: The patient is brought into the OR and placed on the OR table in the supine position. At this time general anesthesia was administered until the patient was sedated. A well-padded ankle tourniquet was applied to the patient's left ankle. The patient was then prepped and draped in the typical sterile fashion and the left lower extremity was lowered onto the surgical field. At this time under fluoroscopic guidance, the calcaneonavicular was identified. A linear skin line was made from the distal aspect of the fibula to the dorsal aspect of the lateral navicular body. At this time an incision was made utilizing a 15 blade. At this time the superficial peroneal nerve was encountered and freed from the soft tissue contractures and lifted superiorly. At this time the extensor digitorum muscle belly was identified and was reflected from its origin and distally. At this time the calcaneonavicular coalition was identified under fluoroscopic guidance. Osteotomes were utilized to resect out being careful not to damage any articular surfaces. At this time the calcaneonavicular was handed off the field and pass for pathological assessment. Copious amounts of sterile saline were utilized to flush the site. Bone wax was applied to the resection site and extensor digitorum brevis muscle belly was interposed between the resection site of the surgery. At this time this was stitched utilizing 2-0 Vicryl to the periosteum of the calcaneus. Following this copious amounts of sterile saline were utilized to flush the surgical site. 2-0 Vicryl was used to coapt the subcutaneous edges and the skin was coapted utilizing 3-0 Nylon in a horizontal mattress-type fashion. The patient then was provided an ankle block consisting of 30 cc of 1:1 mixture of 1% lidocaine plain and 0.5% bupivacaine plain. The patient was then dressed utilizing a dressing consisting of chlorhexidine, Adaptic, 4x4, Kerlix and MICHAEL. At this time the patient was reversed from anesthesia and returned to the postoperative anesthesia care unit with vital signs stable and vascular status intact. The patient handled the anesthesia as well as procedure without significant complication. Postoperative orders as indicated in the patient's discharge chart.
== END 2021-11-18 12:31 | disposition home or self-care (01) ==
LOC: SDC 06:56
PROVIDERS: ATTEND Podiatrist Foot & Ankle Surgery
DX: Q66.89 Other specified congenital deformities of feet (principal); M79.672 Pain in left foot
CPT/HCPCS: 28116; 73630; 76000; J1100; J1885; J2405; J2704; J3010; A9270-GY

== ENCOUNTER 2022-08-31 06:02 | Day surgery (SDC) | payer OTHER ==
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
[2022-08-31] MEDS ORDERED: Lactated Ringers 1,000 ML IV SCH (06:30)
[2022-08-31] MEDS ORDERED: DIPRIVAN 200 MG/20 ML IV ONE ×3 (08:46→09:07)
[2022-08-31] MEDS ORDERED: Versed 2 MG/2 ML Injection ONE (08:46)
[2022-08-31 10:09] VITALS: BP 133/72; PULSE 57; O2SAT 94
--- NOTE | 2022-08-31 11:11 | OP ---
SURGERY DATE/TIME: 08/31/2022 0841 PREOPERATIVE DIAGNOSIS: Anemia. POSTOPERATIVE DIAGNOSES: 1) The patient had a mild gastroesophageal reflux disease grade 2/4. 2) Small hiatal hernia. 3) Mild antritis. PROCEDURES: 1) EGD with cold biopsy x1 2) Colonoscopy complete to cecum. 3) Hot polypectomy with biopsy forceps x2. 4) Mild sigmoid diverticulosis. SURGEON: Gonzalez Guadalupe M.D. ANESTHESIA: MAC. COMPLICATIONS: None. CONDITION: Stable. INDICATION: A patient with anemia. He does have family history of colon cancer with his dad dying from colon cancer. He has been having three to five year scopes religiously. DESCRIPTION OF PROCEDURE: He was taken to endoscopy. Left lateral decubitus position. Scope introduced. Vocal cords are normal. Pharyngoesophageal junction normal. Esophagus normal down to gastroesophageal junction. Grade 2 over 4 gastroesophageal reflux disease. Small hiatal hernia. Fundus, body satisfactory. Very light antritis. Belt Polisher cold biopsy. Pylorus satisfactory. Duodenal bulb satisfactory. Second portion satisfactory. Scope looped upon itself normal. Minimal small hiatal hernia. Scope withdrawn. No signs of bleeding on the upper exam. Lower exam anal digital examination satisfactory. Colon satisfactory. Prostate satisfactory. Scope advanced to the cecum. Base of the cecum 1 cm polyp taken with hot biopsy forceps just above the valve on the medial wall. Base of the cecum was satisfactory. Ascending, hepatic, transverse, splenic, descending, the descending 1 cm polyp taken to extinction. Sigmoid very light mild diverticulosis. Rectum, anus moderate internal hemorrhoids. The patient tolerated the procedure satisfactory. Prep score was excellent. Follow up in three years because of his family history.
== END 2022-08-31 10:10 | disposition home or self-care (01) ==
LOC: SDC 06:02
PROVIDERS: ATTEND Surgery
DX: K21.9 Gastro-esophageal reflux disease without esophagitis (principal); D64.9 Anemia, unspecified; K44.9 Diaphragmatic hernia without obstruction or gangrene; K29.50 Unspecified chronic gastritis without bleeding; K64.8 Other hemorrhoids; K57.30 Diverticulosis of large intestine without perforation or abscess without bleeding; D12.4 Benign neoplasm of descending colon; D12.0 Benign neoplasm of cecum; Z80.0 Family history of malignant neoplasm of digestive organs; Z80.3 Family history of malignant neoplasm of breast
CPT/HCPCS: J2250; J2704

== ENCOUNTER 2023-02-07 19:08 | Inpatient (IN) | payer OTHER ==
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
[2023-02-07] MEDS ORDERED: Sodium Chloride 0.9% 1000 ML 1,000 ML IV STA (20:00)
[2023-02-07] MEDS ORDERED: Hydromorphone 1 mg/ml Injection IV ONE (20:00)
[2023-02-07] MEDS ORDERED: Zofran 4 MG/2 ML VIAL IV ONE (20:00)
[2023-02-07] MEDS ORDERED: Sodium Chloride 0.9% 1000 ML 1,000 ML ONE (20:04)
[2023-02-07] MEDS ORDERED: Hydromorphone 1 mg/ml Injection ONE (20:04)
[2023-02-07] MEDS ORDERED: Zofran 4 MG/2 ML VIAL ONE (20:04)
[2023-02-07 20:17] LABS: Absolute Neutrophil Ct (ANC) 13.55 x10^3/uL (1.4-6.9); BASOPHIL % 0.3 % (0.0-0.4); Basophil (Absolute #) 0.05 x10^3/uL (0-0.4); Eosinophil (Absolute #) 0.16 x10^3/uL (0-0.5); Hematocrit 43.1 % (42-50); Hemoglobin 13.7 g/dL (12.5-18.0); IMMATURE GRAN # 0.06 x10^3u/L (0.00-0.03); IMMATURE GRAN % 0.4 % (0.00-0.4); Lymphocyte (Absolute #) 1.58 x10^3/uL (1.0-4.6); Lymphocytes % 9.4 % (24.0-44.0); Mean Cell Volume 80.7 fL (78-100); Mean Corpuscular Hemoglobin 25.7 pg (26-32); Mean Corpuscular Hgb Concent. 31.8 g/dL (32-36); Mean Platelet Volume 9.5 fL (7.5-11.0); Monocyte (Absolute #) 1.43 x10^3/uL (0.0-1.3); Monocytes % 8.5 % (0.0-12.0); Neutrophil % 80.4 % (36.0-66.0); Platelet Count 279 x10^3/uL (150-450); Red Blood Count 5.34 x10^6/uL (4.1-5.6); Red Cell Distribution Width 16.9 % (11.5-14.0); White Blood Count 16.8 x10^3/uL (4.0-10.5)
[2023-02-07] MEDS ORDERED: solu-CORTEF 100MG IV ONE (20:26)
[2023-02-07] MEDS ORDERED: BENADRYL 50 MG/ML IV ONE (20:28)
[2023-02-07 20:32] LABS: ANION GAP 10.5 MEQ/L (5-15); BILIRUBIN,TOTAL 1.2 mg/dL (0.2-1.3); Calcium 9.4 mg/dL (8.4-10.2); Creatinine 1 0.96 mg/dL (0.66-1.25); EST GLOMERULAR FILTRATION RATE 92.8 ML/MIN; Potassium 3.9 mmol/L (3.5-5.1); Total Protein 7.3 g/dL (6.3-8.2)
[2023-02-07] MEDS ORDERED: solu-CORTEF 100MG ONE (20:35)
[2023-02-07] MEDS ORDERED: BENADRYL 50 MG/ML ONE (23:17)
[2023-02-08 01:48] LABS: Appearance Clear (Clear); Bacteria None Seen /HPF (None Seen); Bilirubin Negative (Negative); Blood Negative (Negative); Epithelial Cells None Seen /HPF (None Seen); Glucose, Urine Negative (Negative); Ketones 40 (Negative); Leukocyte Esterase Trace (Negative); Nitrite Negative (Negative); Ph 5.5 (4.6-8.0); Protein,Urine Dip Trace (Negative); Specific Gravity >=1.030 (1.005-1.030); WBC 21-50 /HPF (0-5)
[2023-02-08] MEDS ORDERED: FLAGYL 500 MG IVPB 500 MG/100 ML BAG IV STA (01:49)
[2023-02-08] MEDS ORDERED: Levofloxacin 500MG/100ML D5W 500 MG/100 ML BAG IV STA (01:49)
[2023-02-08 01:50] LABS: ADD URINE CULTURE? YES (NO)
[2023-02-08] MEDS ORDERED: FLAGYL 500 MG IVPB 500 MG/100 ML BAG IV ONE (01:54)
[2023-02-08] MEDS: Sodium Chloride 0.9% 1000 ML 1,000 ML IV SCH ×3 (01:56→16:07)
--- NOTE | 2023-02-08 01:58 | XRAY ---
CLINICAL HISTORY:Abdominal pain and vomiting COMPARISON:None. TECHNIQUE:A CT scan of the abdomen and pelvis was performed with IV contrast. Coronal and sagittal reconstructive images were also obtained. FINDINGS: Sections of the lower thorax show a 5mm calcified nodule in the posterobasal segment of the right lower lobe with posterior basal atelectatic changes. Abdomen: A few dilated jejunal bowel loops were noted in the abdomen with air-fluid levels, the largest measuring 4.5cm in maximum caliber. Long segmental mild mural thickening with submucosal fat attenuation was noted in distal jejunal loops and ileal loops, measuring 6-7 mm in maximum thickness, likely representing enteritis. The liver is of average size. No focal or diffuse parenchymal abnormality. The portal vein, intrahepatic biliary radicals, and the bile ducts are normal. The gallbladder is distended and shows an 11 mm calculus. There is no evidence of wall thickening/ pericholecystic collection. The spleen shows multiple calcific foci, suggestive of old calcified granulomas. The pancreas and adrenal glands are unremarkable. The kidneys are normal in size and shape. Few (at least 4-5 ) calculi were noted in the inferior calyces of both kidneys, the largest measuring 10 mm on left side and 3 mm on the right side. No hydronephrosis. A small simple renal cortical cyst was noted on the left side. The ascending colon, the transverse colon, and the descending colon are unremarkable. The appendix appears normal. There is no evidence of significant enlargement of the mesenteric or retroperitoneal lymph nodes. Post-operative changes were noted along the anterior abdominal wall. Pelvis: The urinary bladder is unremarkable. The rectosigmoid colon is unremarkable. The prostate appears unremarkable. No evidence of pelvic lymphadenopathy. No definite bony abnormalities could be depicted. IMPRESSION: 1. Few dilated jejunal bowel loops in the abdomen with air-fluid levels, representing acute small bowel obstruction, due to distal enteritis/adhesions likely than paralytic ileus 2. Long segmental mild mural thickening in distal jejunal loops and ileal loops, measuring 6-7 mm in maximum thickness, likely representing enteritis. 3. Bilateral non-obstructive renal calculi, the largest measuring 10 mm on the left side in inferior calyces 4. Cholelithiasis 5. Old calcified splenic granulomas. [facility] was called at [phone] at 12:46 AM COMPUTER TECHNICAL SUPPORT SPECIALIST, 02/08/[address] Bustos, [place] was informed about medical Significant Findings. Electronically Signed by: Rebecca Ortiz MD. (02/08/2023 01:54:20 EST)
[2023-02-08] MEDS ORDERED: Levofloxacin 500MG/100ML D5W 500 MG/100 ML BAG IV ONE (02:05)
[2023-02-08] MEDS ORDERED: Hydromorphone 1 mg/ml Injection IV ONE (02:43)
[2023-02-08] MEDS ORDERED: Hydromorphone 1 mg/ml Injection ONE (02:44)
[2023-02-08] MEDS ORDERED: Zofran 4 MG/2 ML VIAL IV PRN (03:03)
[2023-02-08] MEDS ORDERED: FEVERALL 650 MG PR PRN (03:03)
[2023-02-08] MEDS ORDERED: Sodium Chloride 0.9% 1000 ML 1,000 ML IV SCH (03:03)
[2023-02-08] MEDS ORDERED: PROTONIX 40 MG IV IV SCH (03:03)
[2023-02-08] MEDS ORDERED: Hydromorphone 1 mg/ml Injection IV PRN (03:03)
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
[2023-02-08] MEDS: Zofran 4 MG/2 ML VIAL IV PRN ×3 (03:45→19:37)
[2023-02-08 05:05] LABS: BASOPHIL % 0.2 % (0.0-0.4); Basophil (Absolute #) 0.03 x10^3/uL (0-0.4); Eosinophil % 0.1 % (0.00-5.0); Eosinophil (Absolute #) 0.02 x10^3/uL (0-0.5); Hematocrit 38.7 % (42-50); Hemoglobin 12.1 g/dL (12.5-18.0); IMMATURE GRAN # 0.05 x10^3u/L (0.00-0.03); IMMATURE GRAN % 0.3 % (0.00-0.4); Lymphocyte (Absolute #) 0.77 x10^3/uL (1.0-4.6); Mean Cell Volume 81.5 fL (78-100); Mean Corpuscular Hemoglobin 25.5 pg (26-32); Mean Corpuscular Hgb Concent. 31.3 g/dL (32-36); Mean Platelet Volume 9.6 fL (7.5-11.0); Monocyte (Absolute #) 0.79 x10^3/uL (0.0-1.3); Monocytes % 5.1 % (0.0-12.0); Neutrophil % 89.3 % (36.0-66.0); Platelet Count 280 x10^3/uL (150-450); Red Blood Count 4.75 x10^6/uL (4.1-5.6); Red Cell Distribution Width 17.1 % (11.5-14.0); White Blood Count 15.5 x10^3/uL (4.0-10.5)
--- NOTE | 2023-02-08 05:22 | PCM.NOTE ---
Date and Time: 02/08/23519 Subjective Assessment: Mr.RAMSEY ALFONSO is a 57 year old male with PMHx of HTN, HLP, parathyroidectomy, IgA nephropathy, Kidney stone, GERD and recurrent SBOs in past with latest abdominal surgery back in 2019 for SBO with adhesions - presented with c/o abdominal pain and nausea/vomiting started this AM with solid foods, but then progressed to liquids causing him abdominal pain and vomiting. In ER, CT scan shows dilated small bowel loops. Dr Guadalupe, his surgeon, has been contacted and will consult on him. 02/08: Met with patient bedside. Endorses mid-umbilical abdominal pain 2/10 on numerical pain scale and nausea, vomiting has resolved. Reports he has has SBOs on numerous occasions since his hernia with mesh repair, all off which have been treated conservatively. Surgery has been consulted, will continue anti-emetics, pain control, flagyl/levaquin. Passing flatus, no BM. Denies fever,cough, sob, cp, dizziness, Diarrhea. - Review of Systems Constitutional: No Symptoms Eyes: No Symptoms Ears, Nose, & Throat: No Symptoms Respiratory: No Symptoms Cardiac: No Symptoms Abdominal/Gastrointestinal: Abdominal Pain, Nausea Genitourinary Symptoms: No Symptoms Musculoskeletal: No Symptoms Skin: No Symptoms Neurological: No Symptoms Psychological: No Symptoms Endocrine: No Symptoms Objective Exam General Appearance: no apparent distress Neurologic Exam: alert, oriented x 3, cooperative Skin Exam: normal color Eye Exam: PERRL Ears, Nose, Throat Exam: normal ENT inspection Neck Exam: normal inspection Respiratory Exam: normal breath sounds, lungs clear Cardiovascular Exam: regular rate/rhythm, normal heart sounds Gastrointestinal/Abdomen Exam: distention (Hypoactive BS x 4 quads) Extremity Exam: normal inspection Back Exam: normal inspection OBJECTIVE DATA Vital Signs: Vital Signs - 24 hr Temp Pulse Resp BP Pulse Ox 02/08/23 03:29 97.5 F 80 16 126/66 92 L 02/08/23 02:00 78 16 129/68 94 L 02/08/23 01:00 85 16 133/79 93 L 02/08/23 00:00 84 17 108/79 92 L 02/07/23 23:00 81 17 121/76 94 L 02/07/23 22:00 83 17 108/66 92 L 02/07/23 21:00 81 17 114/65 94 L 02/07/23 20:00 88 18 99/75 93 L 02/07/23 19:27 98.2 F 95 H 18 135/87 95 Pain Assessment - Last Documented Pain Intensity 1 Pain Scale Used 0-10 Pain Scale Intake and Output: Intake & Output 02/05/23 02/06/23 02/07/23 02/08/23 11:59 11:59 11:59 11:59 Weight 125.1 kg Lab Results: Lab Results-Last 24 Hours 02/07/23 02/07/23 02/07/23 Range/Units 20:10 20:10 20:19 WBC 16.8 H (4.0-10.5) x10^3/uL RBC 5.34 (4.1-5.6) x10^6/uL Hgb 13.7 (12.5-18.0) g/dL Hct 43.1 (42-50) % MCV 80.7 (78-100) fL MCH 25.7 L (26-32) pg MCHC 31.8 L (32-36) g/dL RDW 16.9 H (11.5-14.0) % Plt Count 279 (150-450) x10^3/uL MPV 9.5 (7.5-11.0) fL Gran % 80.4 H (36.0-66.0) % Immature Gran % (Auto) 0.4 (0.00-0.4) % Nucleat RBC Rel Count 0.0 (0.00-0.1) % Eos # (Auto) 0.16 (0-0.5) x10^3/uL Immature Gran # (Auto) 0.06 H (0.00-0.03) x10^3u/L Absolute Lymphs (auto) 1.58 (1.0-4.6) x10^3/uL Absolute Monos (auto) 1.43 H (0.0-1.3) x10^3/uL Absolute Nucleated RBC 0.00 (0.00-0.01) x10^3u/L Lymphocytes % 9.4 L (24.0-44.0) % Monocytes % 8.5 (0.0-12.0) % Eosinophils % 1.0 (0.00-5.0) % Basophils % 0.3 (0.0-0.4) % Absolute Granulocytes 13.55 H (1.4-6.9) x10^3/uL Basophils # 0.05 (0-0.4) x10^3/uL Sodium 134 L (137-145) mmol/L Potassium 3.9 (3.5-5.1) mmol/L Chloride 100 (98-107) mmol/L Carbon Dioxide 28 (22-30) mmol/L Anion Gap 10.5 (5-15) MEQ/L BUN 19 (9-20) mg/dL Creatinine 0.96 (0.66-1.25) mg/dL Estimated GFR 92.8 ML/MIN Glucose 112 H (74-106) mg/dL Lactic Acid 1.3 (0.4-2.0) Calcium 9.4 (8.4-10.2) mg/dL Total Bilirubin 1.20 (0.2-1.3) mg/dL AST 20 (17-59) U/L ALT 22 (0-50) U/L Alkaline Phosphatase 92 (38-126) U/L Serum Total Protein 7.3 (6.3-8.2) g/dL Albumin 4.0 (3.5-5.0) g/dL Amylase 48 (30-110) U/L Lipase 24 (23-300) U/L Urine Color (Yellow) Urine Appearance (Clear) Urine pH (4.6-8.0) Ur Specific [employer] (1.005-1.030) Urine Protein (Negative) Urine Glucose (UA) (Negative) mg/dL Urine Ketones (Negative) Urine Blood (Negative) Urine Nitrite (Negative) Urine Bilirubin (Negative) Urine Urobilinogen (0.2) mg/dL Ur Leukocyte Esterase (Negative) U Hyaline Cast (Auto) (0-2) /LPF Urine Microscopic RBC (0-5) /HPF Urine Microscopic WBC (0-5) /HPF Ur Epithelial Cells (None Seen) /HPF Urine Bacteria (None Seen) /HPF Urine Culture Reflexed (NO) 02/08/23 02/08/23 Range/Units 01:12 05:01 WBC 15.5 H (4.0-10.5) x10^3/uL RBC 4.75 (4.1-5.6) x10^6/uL Hgb 12.1 L (12.5-18.0) g/dL Hct 38.7 L (42-50) % MCV 81.5 (78-100) fL MCH 25.5 L (26-32) pg MCHC 31.3 L (32-36) g/dL RDW 17.1 H (11.5-14.0) % Plt Count 280 (150-450) x10^3/uL MPV 9.6 (7.5-11.0) fL Gran % 89.3 H (36.0-66.0) % Immature Gran % (Auto) 0.3 (0.00-0.4) % Nucleat RBC Rel Count 0.0 (0.00-0.1) % Eos # (Auto) 0.02 (0-0.5) x10^3/uL Immature Gran # (Auto) 0.05 H (0.00-0.03) x10^3u/L Absolute Lymphs (auto) 0.77 L (1.0-4.6) x10^3/uL Absolute Monos (auto) 0.79 (0.0-1.3) x10^3/uL Absolute Nucleated RBC 0.00 (0.00-0.01) x10^3u/L Lymphocytes % 5.0 L (24.0-44.0) % Monocytes % 5.1 (0.0-12.0) % Eosinophils % 0.1 (0.00-5.0) % Basophils % 0.2 (0.0-0.4) % Absolute Granulocytes 13.80 H (1.4-6.9) x10^3/uL Basophils # 0.03 (0-0.4) x10^3/uL Sodium (137-145) mmol/L Potassium (3.5-5.1) mmol/L Chloride (98-107) mmol/L Carbon Dioxide (22-30) mmol/L Anion Gap (5-15) MEQ/L BUN (9-20) mg/dL Creatinine (0.66-1.25) mg/dL Estimated GFR ML/MIN Glucose (74-106) mg/dL Lactic Acid (0.4-2.0) Calcium (8.4-10.2) mg/dL Total Bilirubin (0.2-1.3) mg/dL AST (17-59) U/L ALT (0-50) U/L Alkaline Phosphatase (38-126) U/L Serum Total Protein (6.3-8.2) g/dL Albumin (3.5-5.0) g/dL Amylase (30-110) U/L Lipase (23-300) U/L Urine Color Dark Yellow (Yellow) Urine Appearance Clear (Clear) Urine pH 5.5 (4.6-8.0) Ur Specific [employer] >=1.030 A (1.005-1.030) Urine Protein Trace A (Negative) Urine Glucose (UA) Negative (Negative) mg/dL Urine Ketones 40 A (Negative) Urine Blood Negative (Negative) Urine Nitrite Negative (Negative) Urine Bilirubin Negative (Negative) Urine Urobilinogen 1.0 A (0.2) mg/dL Ur Leukocyte Esterase Trace A (Negative) U Hyaline Cast (Auto) 3-5 A (0-2) /LPF Urine Microscopic RBC 3-5 (0-5) /HPF Urine Microscopic WBC 21-50 A (0-5) /HPF Ur Epithelial Cells None Seen (None Seen) /HPF Urine Bacteria None Seen (None Seen) /HPF Urine Culture Reflexed YES (NO) Radiology Exams: Radiology Procedures Category Date Time Status ABDOMEN AND PELVIS W CONTRAST [CT] Stat Exams 02/07/23 20:00 Completed Assessment/Plan (1) Small bowel obstruction Current Visit: Yes Status: Acute Assessment & Plan: SBO seen on CT scan, and he has hx of SBOs and multiple abdominal surgeries with adhesions. Abd pain, nausea and vomiting comes from this. NPO. No NGT unless retractable N/V. Dr Guadalupe has been contacted by ER physician, and will consult on pt. Will avoid systemic anti-coagulation for DVT prophylaxis for now given possible surgery need. Will use SCDs instead Prn diluadid and zofran written. Concern for colitis, ER gave Levaquin and Flagyl. Will continue next dose 02/08: -add compazine, benadryl Code(s): K56.609 - UNSP INTESTNL OBST, UNSP TO PARTIAL VERSUS COMPLETE OBST (2) Leukocytosis Current Visit: Yes Status: Acute Assessment & Plan: WBC 16.8. Likely related to the SBO and possible colitis. Treating above, monitoring WBC trend. No fever. Exam does not support sepsis at presentation 02/08: WBC downtrending 15.5<16.8, will continue iv abx, continue to moniotr Code(s): D72.829 - ELEVATED WHITE BLOOD CELL COUNT, UNSPECIFIED (3) Hyponatremia Current Visit: Yes Status: Acute Assessment & Plan: Na 134 - only mildly low - likely GI loss from N/V. NS started in support of NPO status. Na monitoring daily with chemistry Code(s): E87.1 - HYPO-OSMOLALITY AND HYPONATREMIA (4) Hypertension Current Visit: No Status: Acute Assessment & Plan: His BP is not elevated at this time. Holding all oral meds given SBO and NPO status. If needed, can use prn IV BP meds Code(s): I10 - ESSENTIAL (PRIMARY) HYPERTENSION Code(s): K56.609 - UNSP INTESTNL OBST, UNSP TO PARTIAL VERSUS COMPLETE OBST (2) Hyponatremia Current Visit: Yes Status: Acute Code(s): E87.1 - HYPO-OSMOLALITY AND HYPONATREMIA (3) Leukocytosis Current Visit: Yes Status: Acute Code(s): D72.829 - ELEVATED WHITE BLOOD CELL COUNT, UNSPECIFIED (4) Hypertension Current Visit: No Status: Acute Code(s): I10 - ESSENTIAL (PRIMARY) HYPERTENSION
[2023-02-08 05:28] LABS: ALBUMIN 3.5 g/dL (3.5-5.0); ALKALINE PHOSPHATASE 83 U/L (38-126); ANION GAP 10.5 MEQ/L (5-15); BLOOD UREA NITROGEN 17 mg/dL (9-20); CHLORIDE 101 mmol/L (98-107); Calcium 8.8 mg/dL (8.4-10.2); Carbon Dioxide 27 mmol/L (22-30); EST GLOMERULAR FILTRATION RATE 100.2 ML/MIN; Glucose 129 mg/dL (74-106); NT PRO BNPII < 20.0 pg/mL (<300); Potassium 3.9 mmol/L (3.5-5.1); SGOT/AST 17 U/L (17-59); SGPT/ALT 22 U/L (0-50); SODIUM 135 mmol/L (137-145); Total Protein 6.7 g/dL (6.3-8.2)
[2023-02-08] MEDS: FLAGYL 500 MG IVPB 500 MG/100 ML BAG IV SCH ×3 (06:16→17:26)
[2023-02-08] MEDS: Flonase NASAL NS SCH (09:06)
[2023-02-08] MEDS: Hydromorphone 1 mg/ml Injection IV PRN (10:22)
[2023-02-08] MEDS ORDERED: Compazine 10 MG/2 ML IV PRN (11:36)
[2023-02-08] MEDS ORDERED: BENADRYL 50 MG/ML IV PRN (11:48)
[2023-02-08] MEDS ORDERED: Levofloxacin 500MG/100ML D5W 500 MG/100 ML BAG IV SCH (22:00)
[2023-02-08] MEDS: PROTONIX 40 MG IV IV SCH (22:32)
[2023-02-09] MEDS: Sodium Chloride 0.9% 1000 ML 1,000 ML IV SCH ×5 (00:16→21:55)
[2023-02-09] MEDS: Hydromorphone 1 mg/ml Injection IV PRN (00:17)
[2023-02-09] MEDS: FLAGYL 500 MG IVPB 500 MG/100 ML BAG IV SCH ×2 (00:23→07:38)
[2023-02-09 04:53] LABS: Absolute Neutrophil Ct (ANC) 9.33 x10^3/uL (1.4-6.9); BASOPHIL % 0.2 % (0.0-0.4); Basophil (Absolute #) 0.03 x10^3/uL (0-0.4); Eosinophil % 2.3 % (0.00-5.0); Eosinophil (Absolute #) 0.29 x10^3/uL (0-0.5); Hematocrit 42.1 % (42-50); Hemoglobin 12.7 g/dL (12.5-18.0); IMMATURE GRAN # 0.05 x10^3u/L (0.00-0.03); IMMATURE GRAN % 0.4 % (0.00-0.4); Lymphocyte (Absolute #) 1.76 x10^3/uL (1.0-4.6); Lymphocytes % 14.2 % (24.0-44.0); Mean Cell Volume 83.5 fL (78-100); Mean Corpuscular Hemoglobin 25.2 pg (26-32); Mean Corpuscular Hgb Concent. 30.2 g/dL (32-36); Mean Platelet Volume 9.5 fL (7.5-11.0); Monocyte (Absolute #) 0.97 x10^3/uL (0.0-1.3); Monocytes % 7.8 % (0.0-12.0); Neutrophil % 75.1 % (36.0-66.0); Platelet Count 284 x10^3/uL (150-450); Red Blood Count 5.04 x10^6/uL (4.1-5.6); Red Cell Distribution Width 17.2 % (11.5-14.0); White Blood Count 12.4 x10^3/uL (4.0-10.5)
[2023-02-09 05:07] LABS: ALBUMIN 3.8 g/dL (3.5-5.0); ANION GAP 11.9 MEQ/L (5-15); BILIRUBIN,TOTAL 0.6 mg/dL (0.2-1.3); Calcium 8.7 mg/dL (8.4-10.2); Creatinine 1 1.02 mg/dL (0.66-1.25); EST GLOMERULAR FILTRATION RATE 86.3 ML/MIN; MAGNESIUM 2.2 mg/dL (1.6-2.3); Total Protein 7.1 g/dL (6.3-8.2)
--- NOTE | 2023-02-09 05:11 | PCM.NOTE ---
Date and Time: 02/09/23 0510 Subjective Assessment: Mr.RAMSEY ALFONSO is a 57 year old male with PMHx of HTN, HLP, parathyroidectomy, IgA nephropathy, Kidney stone, GERD and recurrent SBOs in past with latest abdominal surgery back in 2019 for SBO with adhesions - presented with c/o abdominal pain and nausea/vomiting started this AM with solid foods, but then progressed to liquids causing him abdominal pain and vomiting. In ER, CT scan shows dilated small bowel loops. Dr Guadalupe, his surgeon, has been contacted and will consult on him. 02/08: Met with patient bedside. Endorses mid-umbilical abdominal pain 2/10 on numerical pain scale and nausea, vomiting has resolved. Reports he has has SBOs on numerous occasions since his hernia with mesh repair, all off which have been treated conservatively. Surgery has been consulted, will continue anti-emetics, pain control, flagyl/levaquin. Passing flatus, no BM. Denies fever,cough, sob, cp, dizziness, Diarrhea. 02/09: No overnight events noted. Endorses improvement of abdominal pain, no N/V, and +flatus. Has cough with yellow phlegm and PND. Started on flonase with some improvement. Will d/c IV abx. Surgery consulted with recs to treat conservatively, advance diet to CLD - Review of Systems Constitutional: No Symptoms Eyes: No Symptoms Ears, Nose, & Throat: Sinus Drainage Respiratory: Cough Cardiac: No Symptoms Abdominal/Gastrointestinal: Abdominal Pain Genitourinary Symptoms: No Symptoms Musculoskeletal: No Symptoms Skin: No Symptoms Neurological: No Symptoms Psychological: No Symptoms Endocrine: No Symptoms Objective Exam General Appearance: no apparent distress Neurologic Exam: alert, oriented x 3, cooperative Skin Exam: normal color Eye Exam: PERRL Ears, Nose, Throat Exam: normal ENT inspection Neck Exam: normal inspection Respiratory Exam: normal breath sounds, lungs clear Cardiovascular Exam: regular rate/rhythm, normal heart sounds Gastrointestinal/Abdomen Exam: distention, other (hypoactive BS x 4 quads) Extremity Exam: normal inspection Back Exam: normal inspection OBJECTIVE DATA Vital Signs: Vital Signs - 24 hr Temp Pulse Resp BP Pulse Ox 02/08/23 23:47 98.3 F 77 18 146/84 93 L 02/08/23 19:58 98.5 F 81 20 142/83 93 L 02/08/23 16:00 98.8 F 80 16 142/78 94 L 02/08/23 11:10 97.5 F 72 16 114/65 90 L 02/08/23 07:10 98.7 F 72 16 119/70 93 L Pain Assessment - Last Documented Pain Intensity 4 Pain Scale Used 0-10 Pain Scale Intake and Output: Intake & Output 02/06/23 02/07/23 02/08/23 02/09/23 11:59 11:59 11:59 11:59 Intake Total 0 1800 Output Total 400 900 Balance -400 900 Weight 125.1 kg Lab Results: Lab Results-Last 24 Hours 02/08/23 02/08/23 02/09/23 Range/Units 05:01 05:01 04:40 WBC 15.5 H 12.4 H (4.0-10.5) x10^3/uL RBC 4.75 5.04 (4.1-5.6) x10^6/uL Hgb 12.1 L 12.7 (12.5-18.0) g/dL Hct 38.7 L 42.1 (42-50) % MCV 81.5 83.5 (78-100) fL MCH 25.5 L 25.2 L (26-32) pg MCHC 31.3 L 30.2 L (32-36) g/dL RDW 17.1 H 17.2 H (11.5-14.0) % Plt Count 280 284 (150-450) x10^3/uL MPV 9.6 9.5 (7.5-11.0) fL Gran % 89.3 H 75.1 H (36.0-66.0) % Immature Gran % (Auto) 0.3 0.4 (0.00-0.4) % Nucleat RBC Rel Count 0.0 0.0 (0.00-0.1) % Eos # (Auto) 0.02 0.29 (0-0.5) x10^3/uL Immature Gran # (Auto) 0.05 H 0.05 H (0.00-0.03) x10^3u/L Absolute Lymphs (auto) 0.77 L 1.76 (1.0-4.6) x10^3/uL Absolute Monos (auto) 0.79 0.97 (0.0-1.3) x10^3/uL Absolute Nucleated RBC 0.00 0.00 (0.00-0.01) x10^3u/L Lymphocytes % 5.0 L 14.2 L (24.0-44.0) % Monocytes % 5.1 7.8 (0.0-12.0) % Eosinophils % 0.1 2.3 (0.00-5.0) % Basophils % 0.2 0.2 (0.0-0.4) % Absolute Granulocytes 13.80 H 9.33 H (1.4-6.9) x10^3/uL Basophils # 0.03 0.03 (0-0.4) x10^3/uL Sodium 135 L (137-145) mmol/L Potassium 3.9 (3.5-5.1) mmol/L Chloride 101 (98-107) mmol/L Carbon Dioxide 27 (22-30) mmol/L Anion Gap 10.5 (5-15) MEQ/L BUN 17 (9-20) mg/dL Creatinine 0.90 (0.66-1.25) mg/dL Estimated GFR 100.2 ML/MIN Glucose 129 H (74-106) mg/dL Calcium 8.8 (8.4-10.2) mg/dL Magnesium (1.6-2.3) mg/dL Total Bilirubin 0.90 (0.2-1.3) mg/dL AST 17 (17-59) U/L ALT 22 (0-50) U/L Alkaline Phosphatase 83 (38-126) U/L NT-Pro-B Natriuret Pep < 20.0 (<300) pg/mL Serum Total Protein 6.7 (6.3-8.2) g/dL Albumin 3.5 (3.5-5.0) g/dL 02/09/23 Range/Units 04:40 WBC (4.0-10.5) x10^3/uL RBC (4.1-5.6) x10^6/uL Hgb (12.5-18.0) g/dL Hct (42-50) % MCV (78-100) fL MCH (26-32) pg MCHC (32-36) g/dL RDW (11.5-14.0) % Plt Count (150-450) x10^3/uL MPV (7.5-11.0) fL Gran % (36.0-66.0) % Immature Gran % (Auto) (0.00-0.4) % Nucleat RBC Rel Count (0.00-0.1) % Eos # (Auto) (0-0.5) x10^3/uL Immature Gran # (Auto) (0.00-0.03) x10^3u/L Absolute Lymphs (auto) (1.0-4.6) x10^3/uL Absolute Monos (auto) (0.0-1.3) x10^3/uL Absolute Nucleated RBC (0.00-0.01) x10^3u/L Lymphocytes % (24.0-44.0) % Monocytes % (0.0-12.0) % Eosinophils % (0.00-5.0) % Basophils % (0.0-0.4) % Absolute Granulocytes (1.4-6.9) x10^3/uL Basophils # (0-0.4) x10^3/uL Sodium 137 (137-145) mmol/L Potassium 4.0 (3.5-5.1) mmol/L Chloride 103 (98-107) mmol/L Carbon Dioxide 27 (22-30) mmol/L Anion Gap 11.9 (5-15) MEQ/L BUN 15 (9-20) mg/dL Creatinine 1.02 (0.66-1.25) mg/dL Estimated GFR 86.3 ML/MIN Glucose 93 (74-106) mg/dL Calcium 8.7 (8.4-10.2) mg/dL Magnesium 2.2 (1.6-2.3) mg/dL Total Bilirubin 0.60 (0.2-1.3) mg/dL AST 17 (17-59) U/L ALT 19 (0-50) U/L Alkaline Phosphatase 88 (38-126) U/L NT-Pro-B Natriuret Pep (<300) pg/mL Serum Total Protein 7.1 (6.3-8.2) g/dL Albumin 3.8 (3.5-5.0) g/dL Radiology Exams: Radiology Procedures Category Date Time Status ABDOMEN AND PELVIS W CONTRAST [CT] Stat Exams 02/07/23 20:00 Completed Assessment/Plan (1) Small bowel obstruction Current Visit: Yes Status: Acute Assessment & Plan: SBO seen on CT scan, and he has hx of SBOs and multiple abdominal surgeries with adhesions. Abd pain, nausea and vomiting comes from this. NPO. No NGT unless retractable N/V. Dr Guadalupe has been contacted by ER physician, and will consult on pt. Will avoid systemic anti-coagulation for DVT prophylaxis for now given possible surgery need. Will use SCDs instead Prn diluadid and zofran written. Concern for colitis, ER gave Levaquin and Flagyl. Will continue next dose 02/08: -add compazine, benadryl 02/09: -Surgery consulted, will continue to treat conservatively, AD to [facility]D -DC levaquin/flagyl Code(s): K56.609 - UNSP INTESTNL OBST, UNSP TO PARTIAL VERSUS COMPLETE OBST (2) Leukocytosis Current Visit: Yes Status: Acute Assessment & Plan: WBC 16.8. Likely related to the SBO and possible colitis. Treating above, monitoring WBC trend. No fever. Exam does not support sepsis at presentation 02/08: WBC downtrending 15.5<16.8, will continue iv abx, continue to monitor 02/09: WBC at 12.4<15.5<16.8 Code(s): D72.829 - ELEVATED WHITE BLOOD CELL COUNT, UNSPECIFIED (3) Hyponatremia Current Visit: Yes Status: Acute Assessment & Plan: Na 134 - only mildly low - likely GI loss from N/V. NS started in support of NPO status. Na monitoring daily with chemistry 02/09: -Resolved Code(s): E87.1 - HYPO-OSMOLALITY AND HYPONATREMIA (4) Hypertension Current Visit: No Status: Acute Assessment & Plan: His BP is not elevated at this time. Holding all oral meds given SBO and NPO status. If needed, can use prn IV BP meds Code(s): I10 - ESSENTIAL (PRIMARY) HYPERTENSION Code(s): K56.609 - UNSP INTESTNL OBST, UNSP TO PARTIAL VERSUS COMPLETE OBST Code(s): K56.609 - UNSP INTESTNL OBST, UNSP TO PARTIAL VERSUS COMPLETE OBST (2) Hyponatremia Current Visit: Yes Status: Acute Code(s): E87.1 - HYPO-OSMOLALITY AND HYPONATREMIA (3) Leukocytosis Current Visit: Yes Status: Acute Code(s): D72.829 - ELEVATED WHITE BLOOD CELL COUNT, UNSPECIFIED (4) Hypertension Current Visit: No Status: Acute Code(s): I10 - ESSENTIAL (PRIMARY) HYPERTENSION
--- NOTE | 2023-02-09 10:12 | CONS ---
CONSULT DATE: 02/08/2023 REASON FOR CONSULT: Abdominal pain and possible bowel obstruction. HISTORY: A 57-year-old man with bowel obstruction. It is night but on Sunday night he developed some cramping, got worse. He almost went to the hospital but did not. He is a pretty tough gentleman. He does not go to the hospital easily. He subsequently had enough pain that he did present. His CT scan showed partial small bowel obstruction with dilated and thickened distal small bowel loops. I am very aware of this gentleman. We have had about three surgical interventions with laparoscopy, hernia and lysis of adhesions. His abdominal wall actually looks very nice. He has healed incisions and it is smooth, even and there is no herniation. He had really been getting along well until now and nothing recent the last year or two. I did not ask him specifically I do not think about colonoscopy. He did have parathyroid removal two years ago by Dr. Samir Sahni and was referred by Dr. Zoltan Griffiths for hyperparathyroidism. He apparently had calcium in his kidneys. He did incidentally on CT scan have calcified gallstones. PHYSICAL EXAMINATION: He is robust. ABDOMEN: Distended. He is a little tender. He has passed a little gas. LAB DATA AND TESTS: His white count is slightly elevated. He is on IV fluids, IV antibiotics and GI rest. He is not requiring an NG tube at this moment despite the working diagnosis of small bowel obstruction. IMPRESSION AND PLAN: I am not so sure that this is not just an extensive gastroenteritis that has been going around quite a bit here. We have had admitted with such. At this time will continue IV fluids, IV antibiotics and re-examine him hopefully he will start having some massive bowel movements and move on from this. If not, we will do a small bowel follow through.
[2023-02-09] MEDS: Flonase NASAL NS SCH (10:48)
[2023-02-09] MEDS: PROTONIX 40 MG IV IV SCH (21:55)
--- NOTE | 2023-02-10 05:25 | PCM.NOTE ---
Date and Time: 02/10/2324 Subjective Assessment: Mr.RAMSEY ALFONSO is a 57 year old male with PMHx of HTN, HLP, parathyroidectomy, IgA nephropathy, Kidney stone, GERD and recurrent SBOs in past with latest abdominal surgery back in 2019 for SBO with adhesions - presented with c/o abdominal pain and nausea/vomiting started this AM with solid foods, but then progressed to liquids causing him abdominal pain and vomiting. In ER, CT scan shows dilated small bowel loops. Dr Guadalupe, his surgeon, has been contacted and will consult on him. 02/08: Met with patient bedside. Endorses mid-umbilical abdominal pain 2/10 on numerical pain scale and nausea, vomiting has resolved. Reports he has has SBOs on numerous occasions since his hernia with mesh repair, all off which have been treated conservatively. Surgery has been consulted, will continue anti-emetics, pain control, flagyl/levaquin. Passing flatus, no BM. Denies fever,cough, sob, cp, dizziness, Diarrhea. 02/09: No overnight events noted. Endorses improvement of abdominal pain, no N/V, and +flatus. Has cough with yellow phlegm and PND. Started on flonase with some improvement. Will d/c IV abx. Surgery consulted with recs to treat conservatively, advance diet to CLD 02/10: OBJECTIVE DATA Vital Signs: Vital Signs - 24 hr Temp Pulse Resp BP Pulse Ox 02/10/23 04:00 97.7 F 74 16 143/71 90 L 02/09/23 23:57 98.2 F 76 18 154/84 90 L 02/09/23 20:00 99.1 F 81 18 144/76 92 L 02/09/23 16:00 98.4 F 80 18 146/71 91 L 02/09/23 11:39 98.6 F 80 18 141/79 93 L 02/09/23 07:38 98.2 F 83 18 131/66 91 L Pain Assessment - Last Documented Pain Intensity 2 Pain Scale Used 0-10 Pain Scale Intake and Output: Intake & Output 02/07/23 02/08/23 02/09/23 02/10/23 11:59 11:59 11:59 11:59 Intake Total 0 1900 6032 Output Total 745 534 3544 Balance -400 1000 4332 Weight 125.1 kg Multi-Disciplinary Progress Notes: Multi-Disciplinary Progress Notes 02/09/23 10:00 (created 02/09/23 11:49) Case Management Note by Renu Merritt S/W PATIENT- HE CONTINUES TO DENY ANY NEW NEEDS AT TIME OF DC. HE PLANS TO DC HOME TO HIS PLF AT TIME OF DC Initialized on 02/09/23 11:49 - END OF NOTE Assessment/Plan (1) Small bowel obstruction Current Visit: Yes Status: Acute Assessment & Plan: SBO seen on CT scan, and he has hx of SBOs and multiple abdominal surgeries with adhesions. Abd pain, nausea and vomiting comes from this. NPO. No NGT unless retractable N/V. Dr Guadalupe has been contacted by ER physician, and will consult on pt. Will avoid systemic anti-coagulation for DVT prophylaxis for now given possible surgery need. Will use SCDs instead Prn diluadid and zofran written. Concern for colitis, ER gave Levaquin and Flagyl. Will continue next dose 02/08: -add compazine, benadryl 02/09: -Surgery consulted, will continue to treat conservatively, AD to [facility]D -DC levaquin/flagyl Code(s): K56.609 - UNSP INTESTNL OBST, UNSP TO PARTIAL VERSUS COMPLETE OBST (2) Leukocytosis Current Visit: Yes Status: Acute Assessment & Plan: WBC 16.8. Likely related to the SBO and possible colitis. Treating above, monitoring WBC trend. No fever. Exam does not support sepsis at presentation 02/08: WBC downtrending 15.5<16.8, will continue iv abx, continue to monitor 02/09: WBC at 12.4<15.5<16.8 Code(s): D72.829 - ELEVATED WHITE BLOOD CELL COUNT, UNSPECIFIED (3) Hyponatremia Current Visit: Yes Status: Acute Assessment & Plan: Na 134 - only mildly low - likely GI loss from N/V. NS started in support of NPO status. Na monitoring daily with chemistry 02/09: -Resolved Code(s): E87.1 - HYPO-OSMOLALITY AND HYPONATREMIA (4) Hypertension Current Visit: No Status: Acute Assessment & Plan: His BP is not elevated at this time. Holding all oral meds given SBO and NPO status. If needed, can use prn IV BP meds Code(s): I10 - ESSENTIAL (PRIMARY) HYPERTENSION Code(s): K56.609 - UNSP INTESTNL OBST, UNSP TO PARTIAL VERSUS COMPLETE OBST (2) Hyponatremia Current Visit: Yes Status: Acute Code(s): E87.1 - HYPO-OSMOLALITY AND HYPONATREMIA (3) Leukocytosis Current Visit: Yes Status: Acute Code(s): D72.829 - ELEVATED WHITE BLOOD CELL COUNT, UNSPECIFIED (4) Hypertension Current Visit: No Status: Acute Code(s): I10 - ESSENTIAL (PRIMARY) HYPERTENSION
[2023-02-10] MEDS: Sodium Chloride 0.9% 1000 ML 1,000 ML IV SCH (05:30)
[2023-02-10 05:56] LABS: Absolute Neutrophil Ct (ANC) 7.16 x10^3/uL (1.4-6.9); BASOPHIL % 0.4 % (0.0-0.4); Basophil (Absolute #) 0.04 x10^3/uL (0-0.4); Eosinophil % 3.6 % (0.00-5.0); Eosinophil (Absolute #) 0.37 x10^3/uL (0-0.5); Hematocrit 36.2 % (42-50); Hemoglobin 11.4 g/dL (12.5-18.0); IMMATURE GRAN # 0.07 x10^3u/L (0.00-0.03); IMMATURE GRAN % 0.7 % (0.00-0.4); Lymphocyte (Absolute #) 1.66 x10^3/uL (1.0-4.6); Lymphocytes % 16.1 % (24.0-44.0); Mean Corpuscular Hemoglobin 25.5 pg (26-32); Mean Corpuscular Hgb Concent. 31.5 g/dL (32-36); Mean Platelet Volume 9.7 fL (7.5-11.0); Monocyte (Absolute #) 1.03 x10^3/uL (0.0-1.3); Neutrophil % 69.2 % (36.0-66.0); Platelet Count 278 x10^3/uL (150-450); Red Blood Count 4.47 x10^6/uL (4.1-5.6); Red Cell Distribution Width 16.8 % (11.5-14.0); White Blood Count 10.3 x10^3/uL (4.0-10.5)
[2023-02-10 06:27] LABS: ALBUMIN 3.2 g/dL (3.5-5.0); ANION GAP 8.5 MEQ/L (5-15); BILIRUBIN,TOTAL 0.4 mg/dL (0.2-1.3); Calcium 8.6 mg/dL (8.4-10.2); Creatinine 1 0.92 mg/dL (0.66-1.25); EST GLOMERULAR FILTRATION RATE 97.6 ML/MIN; MAGNESIUM 2.1 mg/dL (1.6-2.3); Potassium 3.4 mmol/L (3.5-5.1); Total Protein 6.3 g/dL (6.3-8.2)
[2023-02-10] MEDS ORDERED: POTASSIUM CHLORIDE 20 mEq IN WATER 100ML 20 MEQ/100 ML BAG IV ONE (07:24)
[2023-02-10] MEDS ORDERED: Klor Con PO ONE (07:39)
[2023-02-10] MEDS: Flonase NASAL NS SCH (08:01)
[2023-02-10 08:12] VITALS: BP 158/94; PULSE 81; RESP 17; TEMP 101.3; O2SAT 94
--- NOTE | 2023-02-10 10:35 | XRAY ---
CLINICAL HISTORY:small bowel obstruction COMPARISON:CT 02/07/23 TECHNIQUE:CR KUB was performed in AP views FINDINGS: Few small radio-opaque stones are noted at the renal regions bilaterally. Nonspecific bowel gas distribution. No evidence of small or large bowel obstruction. Unremarkable soft tissue structures. Multiple artifacts seen overlying the lumbar spine. IMPRESSION: 1. Bilateral small renal stones match the previous study. 2. No evidence of bowel obstruction. This finding mismatches the previous study. Electronically Signed by: Rebecca Ortiz MD. (02/10/2023 10:31:49 EST)
--- NOTE | 2023-02-10 10:39 | PCM.DS ---
Discharge Summary Date of Admission: 02/08/23 03:01 Date of Discharge: 02/10/23 Admitting Physician: JUAN WILKINSON DO Consults: Consults on Case 02/08/23 03:03 Consult Surgery ROUTINE Primary Care Provider: ELTON MÉNDEZ Allergies Allergies bee venom protein (honey bee) Allergy (Severe, Verified 02/07/23 19:26) Swelling of Face throat seeling COVID-19 vaccine, mRNA, [id number], L Allergy (Severe, Verified 02/07/23 19:26) Difficulty Breathing 1st vaccine of Pfizer med / instant dizzy,confusion, itching and HTN. Sent to [facility] Instructed to never take again. Iodinated Contrast Media Allergy (Intermediate, Verified 02/07/23 19:26) Shortness of Breath itching Penicillins Allergy (Intermediate, Verified 02/07/23 19:26) Rash shellfish derived Allergy (Intermediate, Verified 02/07/23 19:26) Hives promethazine HCl [From Phenergan] Adverse Reaction (Severe, Verified 02/07/23 19:26) increased heart rate Hospital Summary - Hospital Course Hospital Course: Mr.RAMSEY ALFONSO is a 57 year old male with PMHx of HTN, HLP, parathyroidectomy, IgA nephropathy, Kidney stone, GERD and recurrent SBOs in past with latest abdominal surgery back in 2019 for SBO with adhesions - presented with c/o abdominal pain and nausea/vomiting started this AM with solid foods, but then progressed to liquids causing him abdominal pain and vomiting. In ER, CT scan shows dilated small bowel loops. Dr Guadalupe, his surgeon was consulted. SBO treated conservatively with bowel rest, pain control, and fluids. Patient is now tolerating a diet with no n/v, passing flatus, and bowel function has returned. No longer having abdominal pain. Potassium was low and replenished, now at normal level. Repeat KUB is negative for bowel obstruction. He is cleared by surgery and will discharge today. Patient agreeable to plan, all questions and concerns have been addressed. Discharge Note New Diagnosis: SBO New Medications: none Follow Up: PCP/surgery/GI Latest Assessment & Plan (1) Small bowel obstruction Current Visit: Yes Status: Acute Assessment & Plan: SBO seen on CT scan, and he has hx of SBOs and multiple abdominal surgeries with adhesions. Abd pain, nausea and vomiting comes from this. NPO. No NGT unless retractable N/V. Dr Guadalupe has been contacted by ER physician, and will consult on pt. Will avoid systemic anti-coagulation for DVT prophylaxis for now given possible surgery need. Will use SCDs instead Prn diluadid and zofran written. Concern for colitis, ER gave Levaquin and Flagyl. Will continue next dose 02/08: -add compazine, benadryl 02/09: -Surgery consulted, will continue to treat conservatively, AD to [facility]D -DC levaquin/flagyl Code(s): K56.609 - UNSP INTESTNL OBST, UNSP TO PARTIAL VERSUS COMPLETE OBST (2) Leukocytosis Current Visit: Yes Status: Acute Assessment & Plan: WBC 16.8. Likely related to the SBO and possible colitis. Treating above, monitoring WBC trend. No fever. Exam does not support sepsis at presentation 02/08: WBC downtrending 15.5<16.8, will continue iv abx, continue to monitor 02/09: WBC at 12.4<15.5<16.8 Code(s): D72.829 - ELEVATED WHITE BLOOD CELL COUNT, UNSPECIFIED (3) Hyponatremia Current Visit: Yes Status: Acute Assessment & Plan: Na 134 - only mildly low - likely GI loss from N/V. NS started in support of NPO status. Na monitoring daily with chemistry 02/09: -Resolved Code(s): E87.1 - HYPO-OSMOLALITY AND HYPONATREMIA (4) Hypertension Current Visit: No Status: Acute Assessment & Plan: His BP is not elevated at this time. Holding all oral meds given SBO and NPO status. If needed, can use prn IV BP meds Code(s): I10 - ESSENTIAL (PRIMARY) HYPERTENSION Code(s): K56.609 - UNSP INTESTNL OBST, UNSP TO PARTIAL VERSUS COMPLETE OBST I spent 35 minutes [id number] with the patient on the day of discharge performing discharge exam, discussing hospital stay and discharge instructions with patient and caregivers, preparation of discharge records, prescriptions & referral forms and addressing any questions/concerns the patient had as documented above. - Vitals & Intake/Output Vital Signs: Vital Signs Temperature 101.3 F 02/10/23 08:00 Pulse Rate 81 02/10/23 08:00 Respiratory Rate 17 02/10/23 08:00 Blood Pressure 158/94 02/10/23 08:00 O2 Sat by Pulse Oximetry 94 L 02/10/23 08:00 Intake & Output: Intake & Output 02/07/23 02/08/23 02/09/23 02/10/23 11:59 11:59 11:59 11:59 Intake Total 0 1900 6152 Output Total 755 334 7638 Balance -400 1000 3652 Weight 125.1 kg - Lab Result Diagrams: 02/10/23 05:14 02/10/23 05:14 Lab Results-Last 24 Hrs: Lab Results-Last 24 Hours 02/10/23 02/10/23 Range/Units 05:14 05:14 WBC 10.3 (4.0-10.5) x10^3/uL RBC 4.47 (4.1-5.6) x10^6/uL Hgb 11.4 L (12.5-18.0) g/dL Hct 36.2 L (42-50) % MCV 81.0 (78-100) fL MCH 25.5 L (26-32) pg MCHC 31.5 L (32-36) g/dL RDW 16.8 H (11.5-14.0) % Plt Count 278 (150-450) x10^3/uL MPV 9.7 (7.5-11.0) fL Gran % 69.2 H (36.0-66.0) % Immature Gran % (Auto) 0.7 H (0.00-0.4) % Nucleat RBC Rel Count 0.0 (0.00-0.1) % Eos # (Auto) 0.37 (0-0.5) x10^3/uL Immature Gran # (Auto) 0.07 H (0.00-0.03) x10^3u/L Absolute Lymphs (auto) 1.66 (1.0-4.6) x10^3/uL Absolute Monos (auto) 1.03 (0.0-1.3) x10^3/uL Absolute Nucleated RBC 0.00 (0.00-0.01) x10^3u/L Lymphocytes % 16.1 L (24.0-44.0) % Monocytes % 10.0 (0.0-12.0) % Eosinophils % 3.6 (0.00-5.0) % Basophils % 0.4 (0.0-0.4) % Absolute Granulocytes 7.16 H (1.4-6.9) x10^3/uL Basophils # 0.04 (0-0.4) x10^3/uL Sodium 135 L (137-145) mmol/L Potassium 3.4 L (3.5-5.1) mmol/L Chloride 105 (98-107) mmol/L Carbon Dioxide 26 (22-30) mmol/L Anion Gap 8.5 (5-15) MEQ/L BUN 10 (9-20) mg/dL Creatinine 0.92 (0.66-1.25) mg/dL Estimated GFR 97.6 ML/MIN Glucose 99 (74-106) mg/dL Calcium 8.6 (8.4-10.2) mg/dL Magnesium 2.1 (1.6-2.3) mg/dL Total Bilirubin 0.40 (0.2-1.3) mg/dL AST 15 L (17-59) U/L ALT 15 (0-50) U/L Alkaline Phosphatase 76 (38-126) U/L Serum Total Protein 6.3 (6.3-8.2) g/dL Albumin 3.2 L (3.5-5.0) g/dL Micro Results-Entire Visit: Microbiology 02/08/23 01:12 Urine Culture - Final Clean Catch Midstream <10K NORMAL SKIN SUMA PROBABLE SKIN CONTAMINANT - Radiology Exams Ordered Rad Exams-Entire Visit: Radiology Procedures Category Date Time Status KUB Stat Exams 02/10/23 09:34 Taken Discharge Exam General Appearance: no apparent distress Neurologic Exam: alert, oriented x 3, cooperative Eye Exam: PERRL Ears, Nose, Throat Exam: normal ENT inspection Neck Exam: normal inspection Respiratory Exam: normal breath sounds, lungs clear Cardiovascular Exam: regular rate/rhythm, normal heart sounds Gastrointestinal/Abdomen Exam: soft, normal bowel sounds Male Genitalia Exam: deferred Rectal Exam: deferred Back Exam: normal inspection Extremity Exam: normal inspection Skin Exam: normal color Final Diagnosis/Problem List - Final Discharge Diagnosis/Problem (1) Small bowel obstruction Current Visit: Yes Status: Resolved Code(s): K56.609 - UNSP INTESTNL OBST, UNSP TO PARTIAL VERSUS COMPLETE OBST (2) Hyponatremia Current Visit: Yes Status: Resolved Code(s): E87.1 - HYPO-OSMOLALITY AND HYPONATREMIA (3) Leukocytosis Current Visit: Yes Status: Resolved Code(s): D72.829 - ELEVATED WHITE BLOOD CELL COUNT, UNSPECIFIED (4) Hypertension Current Visit: No Status: Chronic Code(s): I10 - ESSENTIAL (PRIMARY) HYPERTENSION (5) Hypokalemia Current Visit: Yes Status: Resolved Code(s): E87.6 - HYPOKALEMIA - Discharge Disposition: Home, Self-Care Condition: Stable Prescriptions: Continue Allopurinol 300 mg [Zyloprim 300 mg] 300 mg PO HS Ergocalciferol (Vitamin D2) [Vitamin D] 50,000 unit PO WEEKLY Ropinirole HCl [Requip] 2 mg PO HS Tamsulosin HCl 0.4 mg [Flomax 0.4 MG] 0.4 mg PO DAILY Rosuvastatin Calcium [Crestor] 20 mg PO HS Fexofenadine HCl [Debi Allergy] 180 mg PO DAILY Esomeprazole Magnesium [Nexium 24Hr] 20 mg PO DAILY Hctz/Triamteren 37.5 mg/25 mg* [Maxzide-25MG Tablet] 1 tab PO DAILY Bupropion HCl Xl 150 mg [Wellbutrin XL 150 MG] 300 mg PO DAILY Losartan Potassium 25 mg PO DAILY Follow up with: ELTON MÉNDEZ [Primary Care Provider] - BARRERA GUADALUPE [ACTIVE STAFF] - 03/01/23 3:40 pm (at [facility] )
[2023-02-10 11:23] LABS: INFLUENZA A NEGATIVE (NEGATIVE); INFLUENZA B NEGATIVE (NEGATIVE); RESPIRATORY SYNCTIAL VIRUS NEGATIVE (NEGATIVE); SARS-CoV-2 Xpert Express NEGATIVE (NEGATIVE)
== END 2023-02-10 11:41 | disposition home or self-care (01) | DRG 389 ==
LOC: ED 19:08 → MED SURG 02-08 03:01 → OBSVTOIN 02-08 03:01
PROVIDERS: ADMIT Internal Medicine; ATTEND Internal Medicine
DX: K56.609 Unspecified intestinal obstruction, unspecified as to partial versus complete obstruction (principal); E87.1 Hypo-osmolality and hyponatremia; D72.829 Elevated white blood cell count, unspecified; I10 Essential (primary) hypertension; E78.5 Hyperlipidemia, unspecified; K21.9 Gastro-esophageal reflux disease without esophagitis; Z79.899 Other long term (current) drug therapy; Z20.828 Contact with and (suspected) exposure to other viral communicable diseases; Z80.0 Family history of malignant neoplasm of digestive organs
CPT/HCPCS: 0241U; 36000; 36415; 74018; 74177; 80053; 81001; 82150; 83605; 83690; 83735; 83880; 84132; 85025; 87086; 96374; 96375; 96376; 99285; J1170; J1200; J1720; J1956; J2405; Q3014; A9270-GY

== ENCOUNTER 2023-05-17 06:26 | Day surgery (SDC) | payer OTHER ==
--- NOTE | 2023-05-16 11:22 | HP ---
DATE OF SURGERY: 05/17/2023 HISTORY OF PRESENT ILLNESS: The patient is a 57-year-old male presents with complaints of gallstones. It looks like he had a recent small bowel obstruction and he has been better from that. He has had a laparoscopic ventral hernia repair with mesh done with lysis of adhesions. He is eating okay, bowels are moving okay. He is having some upper abdominal discomfort. He had an ultrasound showing very large gallstone. PAST MEDICAL HISTORY: Depression. Gout. Gastroesophageal reflux disease. Allergic rhinitis. Hyperlipidemia. Benign prostatic hypertrophy. Hypertension. PAST SURGICAL HISTORY: Ventral hernia repair with lysis of adhesions. ALLERGIES: PENICILLIN. PHENERGAN. CONTRAST DYE. MEDICATIONS: Zestril, Tamsulosin, rosuvastatin, ropinirole, Nexium, Maxzide, Levapro, vitamin D, Allopurinol, Debi. FAMILY HISTORY: Breast cancer. Pancreatic cancer. Colon cancer. SOCIAL HISTORY: Negative. REVIEW OF SYSTEMS: CONSTITUTIONAL: Denies fever or chills. CHEST: Denies shortness of breath. CVS: Denies chest pain. ABDOMEN: Reports upper abdominal pain. PHYSICAL EXAMINATION: GENERAL: No acute distress. CHEST: Nonlabored. No shortness of breath. CVS: Regular rate and rhythm. ABDOMEN: Soft, round. IMPRESSION: Gallstone cholelithiasis. PLAN: Laparoscopic cholecystectomy with Dr. Gonzalez Guadalupe. As dictated by Sheryl Ferro NP.
[2023-05-17] MEDS ORDERED: Levofloxacin 500MG/100ML D5W 500 MG/100 ML BAG IV ONE (07:06)
[2023-05-17] MEDS ORDERED: CLINDAMYCIN-D5W 900 MG/50 ML*** 900 MG/50 ML BAG IV ONE (07:06)
[2023-05-17] MEDS ORDERED: Lactated Ringers 1,000 ML IV ONE ×2 (07:07→10:32)
[2023-05-17] MEDS: Levofloxacin 500MG/100ML D5W 500 MG/100 ML BAG IV ONE (07:13)
[2023-05-17] MEDS: Lactated Ringers 1,000 ML IV SCH (07:13)
[2023-05-17] MEDS: CLINDAMYCIN-D5W 900 MG/50 ML*** 900 MG/50 ML BAG IV SCH (07:13)
[2023-05-17 07:25] VITALS: RESP 16
[2023-05-17] MEDS ORDERED: Sensorcaine 0.25% 10 ML ONE (08:08)
[2023-05-17 08:11] LABS: ANION GAP 10.2 MEQ/L (5-15); Calcium 9.4 mg/dL (8.4-10.2); Creatinine 1 0.92 mg/dL (0.66-1.25); EST GLOMERULAR FILTRATION RATE 97.6 ML/MIN; Potassium 3.7 mmol/L (3.5-5.1)
[2023-05-17] MEDS ORDERED: Xylocaine-Mpf 2% 5 Ml Vial ONE (09:49)
[2023-05-17] MEDS ORDERED: SUBLIMAZE 100 MCG/2 ML ONE ×2 (09:49→11:05)
[2023-05-17] MEDS ORDERED: Versed 2 MG/2 ML Injection ONE (09:49)
[2023-05-17] MEDS ORDERED: DIPRIVAN 200 MG/20 ML IV ONE (09:49)
[2023-05-17] MEDS ORDERED: Zemuron 100 MG/10 ML ONE (09:51)
[2023-05-17] MEDS ORDERED: Zofran 4 MG/2 ML VIAL ONE (09:51)
[2023-05-17] MEDS ORDERED: PHENYLEPHRINE HCL ONE (10:19)
[2023-05-17] MEDS ORDERED: Ephedrine Sulfate 50 MG/ML ONE (10:26)
[2023-05-17] MEDS ORDERED: TORAdol 30 mg Injection ONE (10:48)
[2023-05-17] MEDS ORDERED: BRIDION 200MG/2ML IV ONE (10:49)
[2023-05-17] MEDS ORDERED: Decadron 4 MG INJ ONE (11:05)
[2023-05-17] MEDS ORDERED: Hydromorphone 1 mg/ml Injection ONE (11:09)
[2023-05-17 12:09] VITALS: BP 122/81; PULSE 76; TEMP 97.2; O2SAT 94
--- NOTE | 2023-05-17 13:04 | OP ---
SURGERY DATE/TIME: 05/17/2023 0957 PREOPERATIVE DIAGNOSIS: Symptomatic cholelithiasis. POSTOPERATIVE DIAGNOSIS: Symptomatic cholelithiasis. PROCEDURE: Laparoscopic cholecystectomy. SURGEON: Dr. Gonzalez Guadalupe. ANESTHESIA: General endotracheal tube. COMPLICATIONS: None. CONDITION: Stable. INDICATIONS: A patient has upper abdominal pain. Ultrasound revealed stones. Seen and examined and procedure discussed. He wished to proceed. DESCRIPTION OF PROCEDURE AND FINDINGS: Taken to surgery. General anesthetic, routine prep and drape. He had an umbilical hernia repair so a camera spot was picked out about 2 inches above slightly to the right. Veress needle inserted there. Insufflating pressure 14. Five ports. There was omentum there this omentum was inspected and it was satisfactory. The camera was satisfactory. Three additional 5 ports had been placed in the upper abdomen. The camera had actually been placed in the upper abdomen. Looking back at this port this port was satisfactory. A little bit below the belly button there was a small loop stuck against the anterior abdominal wall which was well away from the field. The colon was down in normal position. The gallbladder is not adhesed to the colon. The gallbladder was not thick or big. It was somewhat edematous. It was about 4 inches long. It was picked up. It was retracted laterally and cephalad. Cystic duct defined, triply clipped. Cystic artery triply clipped. Gallbladder rolled out of gallbladder fossa. Gallbladder delivered off the top edge of the liver. The field was clean and dry. CO2 exsufflated. Hole closure device had been used in the epigastric port. The patient tolerated the procedure satisfactorily.
== END 2023-05-17 12:22 | disposition home or self-care (01) ==
LOC: SDC 06:26
PROVIDERS: ATTEND Surgery
DX: K80.20 Calculus of gallbladder without cholecystitis without obstruction (principal); Z80.3 Family history of malignant neoplasm of breast; Z80.0 Family history of malignant neoplasm of digestive organs; I10 Essential (primary) hypertension
CPT/HCPCS: 36415; 80048; J1100; J1170; J1885; J1956; J2250; J2371; J2405; J2704; J3010

== ENCOUNTER 2023-09-19 12:16 | Day surgery (SDC) | payer OTHER ==
[2023-09-19] MEDS ORDERED: DIPRIVAN 200 MG/20 ML IV ONE ×2 (17:04→17:15)
[2023-09-19] MEDS ORDERED: Lactated Ringers 1,000 ML IV ONE (17:57)
--- NOTE | 2023-09-19 20:23 | XRAY ---
Indication: Left piriformis injection. Intraoperative fluoroscopy provided for 27 seconds. Single digital spot image submitted for interpretation demonstrates posterior needle tip projecting over expected left piriformis. Small amount of contrast injected for needle tip placement. Correlate with intraoperative findings/report.
--- NOTE | 2023-09-19 20:23 | XRAY ---
Indication: Lumbar KAITLYN. Intraoperative fluoroscopy provided for 15 seconds. 3 digital spot image submitted for interpretation demonstrates posterior needle tip projecting posterior to lumbosacral junction interspace. Small amount of contrast injected for needle tip placement. Correlate with intraoperative findings/report.
--- NOTE | 2023-09-20 09:12 | XRAY ---
27 seconds of fluoroscopy was used in surgery for a left piriformis injection.
--- NOTE | 2023-09-20 09:13 | XRAY ---
15 seconds of fluoroscopy was used in surgery for a lumbar KAITLYN.
== END 2023-09-19 17:50 | disposition home or self-care (01) ==
LOC: SDC-PAIN 12:16
PROVIDERS: ATTEND Psychiatry & Neurology Pain Medicine
DX: M54.16 Radiculopathy, lumbar region (principal)
CPT/HCPCS: 20552; 72100; 72170; 77002; 77003; J2704; Q9966

== ENCOUNTER 2023-10-18 11:31 | Day surgery (SDC) | payer OTHER ==
[2023-10-18] MEDS ORDERED: Sodium Chloride 0.9(Preservative Free) 10 ML IJ ONE (11:32)
[2023-10-18] MEDS ORDERED: LIDOCAINE HCL 1% 50 MG/5 ML VL PF IJ ONE (11:32)
[2023-10-18] MEDS ORDERED: Decadron 4 MG INJ IV ONE (11:32)
[2023-10-18] MEDS ORDERED: DIPRIVAN 200 MG/20 ML IV ONE (14:27)
[2023-10-18] MEDS ORDERED: Lactated Ringers 1,000 ML IV ONE (14:35)
--- NOTE | 2023-10-18 15:06 | XRAY ---
Indication: Left piriformis injection. Intraoperative fluoroscopy provided for 15 seconds. Single digital spot image submitted for interpretation demonstrates posterior needle tip projecting over the left piriformis. Small amount of contrast injected for needle tip placement. Correlate with intraoperative findings/report.
--- NOTE | 2023-10-18 15:06 | XRAY ---
Indication: Left L5-S2 transforaminal KAITLYN. Intraoperative fluoroscopy provided for 35 seconds. 6 digital spot image submitted for interpretation demonstrates posterior needle tips projecting over the expected left L5 and S1 nerve roots. Small amount of contrast injected for needle tip placement. Correlate with intraoperative findings/report.
--- NOTE | 2023-10-18 15:34 | XRAY ---
15 seconds of fluoroscopy was used in surgery for a left piriformis injection.
--- NOTE | 2023-10-18 15:34 | XRAY ---
35 seconds of fluoroscopy was used in surgery for a left L5-S2 transforaminal KAITLYN.
== END 2023-10-18 14:58 | disposition home or self-care (01) ==
LOC: SDC-PAIN 11:31
PROVIDERS: ATTEND Psychiatry & Neurology Pain Medicine
DX: M54.16 Radiculopathy, lumbar region (principal); M79.18 Myalgia, other site
CPT/HCPCS: 20552; 64483; 64484; 72100; 72170; 77002; 77003; J1100; J2001; J2704; Q9966

== ENCOUNTER 2024-01-02 14:13 | Day surgery (SDC) | payer OTHER ==
[2024-01-02] MEDS ORDERED: LIDOCAINE HCL 1% AMPUL 5 ML IJ ONE (14:14)
[2024-01-02] MEDS ORDERED: Decadron 4 MG INJ IV ONE (14:14)
[2024-01-02] MEDS ORDERED: DIPRIVAN 200 MG/20 ML IV ONE (16:19)
--- NOTE | 2024-01-02 20:49 | XRAY ---
Indication: Left piriformis injection. Intraoperative fluoroscopy provided for 11 seconds. Single digital spot images submitted for interpretation demonstrates posterior needle tips projecting over left piriformis. Small amount of contrast injected for both needle tip placement. Correlate with intraoperative findings/report.
--- NOTE | 2024-01-03 09:54 | XRAY ---
11 seconds of fluoroscopy were used in surgery for a left piriformis muscle injection.
== END 2024-01-02 16:50 | disposition home or self-care (01) ==
LOC: SDC-PAIN 14:13
PROVIDERS: ATTEND Psychiatry & Neurology Pain Medicine
DX: M79.18 Myalgia, other site (principal)
CPT/HCPCS: 20552; 72170; 77002; J1100; J2704; Q9966

== ENCOUNTER 2024-03-03 06:00 | Day surgery (SDC) | payer OTHER ==
[2024-03-03] MEDS ORDERED: TYLENOL EXTRA STRENGTH 500 MG ONE (06:01)
[2024-03-03] MEDS ORDERED: Decadron 4 MG ONE (06:01)
[2024-03-03] MEDS ORDERED: celeBREX 100 MG ONE (06:02)
[2024-03-03] MEDS ORDERED: Lactated Ringers 1,000 ML IV ONE (06:02)
[2024-03-03] MEDS ORDERED: NEURONTIN ONE (06:02)
[2024-03-03] MEDS: TYLENOL EXTRA STRENGTH 500 MG PO ONE (06:13)
[2024-03-03] MEDS: NEURONTIN PO ONE (06:13)
[2024-03-03] MEDS: celeBREX 100 MG PO ONE (06:14)
[2024-03-03] MEDS: Decadron 4 MG PO ONE (06:14)
[2024-03-03] MEDS: Lactated Ringers 1,000 ML IV SCH (06:15)
[2024-03-03 06:23] VITALS: RESP 18
[2024-03-03 06:45] LABS: Hematocrit 44.3 % (40.1-51.0); Hemoglobin 14.9 g/dL (13.7-17.5); Mean Cell Volume 85.2 fL (79.0-92.2); Mean Corpuscular Hemoglobin 28.7 pg (25.7-32.2); Mean Corpuscular Hgb Concent. 33.6 g/dL (32.3-36.5); Mean Platelet Volume 9.9 fL (9.4-12.4); Platelet Count 322 x10^3/uL (163-337); Red Cell Distribution Width 12.9 % (11.6-14.4); White Blood Count 9.4 x10^3/uL (4.23-9.07)
[2024-03-03] MEDS ORDERED: MARCAINE 0.5%-EPI 1:200,000 VL IJ ONE (06:55)
[2024-03-03] MEDS: CLINDAMYCIN-D5W 900 MG/50 ML*** 900 MG/50 ML BAG IV SCH (07:02)
[2024-03-03] MEDS ORDERED: TORAdol 30 mg Injection ONE (07:49)
[2024-03-03] MEDS ORDERED: Zofran 4 MG/2 ML VIAL ONE (07:49)
[2024-03-03] MEDS ORDERED: SUBLIMAZE 100 MCG/2 ML ONE (07:49)
[2024-03-03] MEDS ORDERED: ROCURONIUM BROMIDE IV ONE (07:49)
[2024-03-03] MEDS ORDERED: BRIDION 200MG/2ML IV ONE (07:49)
[2024-03-03] MEDS ORDERED: Xylocaine-Mpf 2% 5 Ml Vial ONE (07:49)
[2024-03-03] MEDS ORDERED: Ephedrine Sulfate 50 MG/ML ONE (08:16)
[2024-03-03 09:42] VITALS: TEMP 97.9; O2SAT 93
[2024-03-03 09:51] VITALS: BP 120/93; PULSE 84
--- NOTE | 2024-03-03 18:03 | OP ---
SURGERY DATE/TIME: 03/03/2024 [id number] PREOPERATIVE DIAGNOSIS: Torn right medial and lateral menisci, chondromalacia of patella. 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 PROCEDURE: Arthroscopy of the right knee with partial medial and lateral meniscectomies, chondroplasty of the trochlear groove, and debridement of anterior cruciate ligament. SURGEON: Escobar Zhang II, ANESTHESIA: General. DESCRIPTION OF PROCEDURE AND FINDINGS: The patient was identified. Informed consent was obtained. The patient was taken to the operative suite and placed in a supine position on the operating table, and a general anesthetic was administered. A tourniquet was placed high on the right thigh and the right lower extremity was placed into the knee marcelino. The right lower extremity was then prepped and draped in the usual sterile fashion. A standard time-out was taken. At this point, the leg was exsanguinated, and the tourniquet was elevated to 350 mmHg. A standard superomedial portal was created with an 11 blade. The trocar and cannular were placed in the joint. Joint was distended with the arthroscopic pump. Inferolateral portal was created with an 11 blade. The arthroscope was then placed in through a cannula. An 18-gauge spinal needle identified the level for the inferomedial portal, which was also created with an 11 blade. The knee was then inspected in a systematic fashion. The suprapatellar pouch had no loose bodies or synovial hypertrophy. The undersurface of the patella had no significant chondromalacia changes. The trochlear groove did have some grades 2 and 3 chondromalacia changes, and a chondroplasty was performed of the loose tissue in order to get back to heathy tissue. The scope was then placed into the medial compartment where a tear of the medial meniscus was encountered and resected with the handheld biting instruments and shaved to a smooth transition with the shaver. Here, a notch lesion was inspected. The patient had an old partial tear of his anterior cruciate ligament which was debrided back to healthy tissue. The scope was placed into the lateral compartment where complex tear of the anterior, middle and posterior horns of the lateral meniscus was encountered, resected with the biting instruments, and shaved to a smooth transition with the shaver. At this point, the knee was reinspected and copiously irrigated. No further pathology identified, the instrumentation removed, and the portal sites were closed with interrupted 4-0 nylon suture. The knee was infiltrated with 30 mL of 0.25% Marcaine with epinephrine. Adaptic, 4 x 4's, and a standard postop arthroscopy dressing applied. The patient was transferred to the cart and taken to the recovery room in satisfactory condition, having tolerated the procedure well.
== END 2024-03-03 09:53 | disposition home or self-care (01) ==
LOC: SDC 06:00
PROVIDERS: ATTEND Orthopaedic Surgery
DX: S83.241D Other tear of medial meniscus, current injury, right knee, subsequent encounter (principal); S83.281D Other tear of lateral meniscus, current injury, right knee, subsequent encounter; M22.41 Chondromalacia patellae, right knee; M25.561 Pain in right knee
CPT/HCPCS: 29880; 36415; 85027; J1885; J2405; J2704; J3010; A9270-GY

== ENCOUNTER 2024-03-07 17:01 | Emergency (ER) | payer OTHER ==
[2024-03-07 17:40] VITALS: BP 102/56; RESP 18; TEMP 98.8
[2024-03-07 18:13] LABS: Absolute Neutrophil Ct (ANC) 11.65 x10^3/uL (1.78-5.38); BASOPHIL % 0.3 % (0.2-1.2); Basophil (Absolute #) 0.04 x10^3/uL (0.01-0.08); Eosinophil % 1.9 % (0.8-7.0); Eosinophil (Absolute #) 0.27 x10^3/uL (0.04-0.54); Hematocrit 44.3 % (40.1-51.0); Hemoglobin 14.7 g/dL (13.7-17.5); IMMATURE GRAN # 0.11 x10^3u/L (0.001-0.031); IMMATURE GRAN % 0.8 % (0.001-0.429); Lymphocyte (Absolute #) 1.24 x10^3/uL (1.32-3.57); Lymphocytes % 8.7 % (21.8-53.1); Mean Cell Volume 86.9 fL (79.0-92.2); Mean Corpuscular Hemoglobin 28.8 pg (25.7-32.2); Mean Corpuscular Hgb Concent. 33.2 g/dL (32.3-36.5); Mean Platelet Volume 9.4 fL (9.4-12.4); Monocyte (Absolute #) 0.88 x10^3/uL (0.30-0.82); Monocytes % 6.2 % (5.3-12.2); Neutrophil % 82.1 % (34.0-67.9); Platelet Count 328 x10^3/uL (163-337); Red Cell Distribution Width 13.5 % (11.6-14.4); White Blood Count 14.2 x10^3/uL (4.23-9.07)
[2024-03-07 18:27] LABS: ANION GAP 10.5 MEQ/L (5-15); Calcium 9.5 mg/dL (8.4-10.2); Creatinine 1 1.33 mg/dL (0.66-1.25); EST GLOMERULAR FILTRATION RATE 62.3 ML/MIN; PROTIME 10.9 SECONDS (9.4-12.5); Potassium 3.6 mmol/L (3.5-5.1)
[2024-03-07 18:33] VITALS: PULSE 80; O2SAT 96
[2024-03-07] MEDS ORDERED: ENOXAPARIN SODIUM SQ ONE (18:52)
[2024-03-07] MEDS: ENOXAPARIN SODIUM SQ STA (18:53)
[2024-03-07] MEDS: ELIQUIS 2.5 MG TABLET PO ONE (19:01)
--- NOTE | 2024-03-07 19:09 | ERPHSYRPT ---
- History of Present Illness Time Seen by Provider: 03/07/24 17:55 Source: patient, family Exam Limitations: no limitations Patient Subjective Stated Complaint: PT HERE FOR PAIN TO RIGHT KNEE, HE HAD SURGERY LAST SUNDAY, WAS SEEN AT CLINIC TODAY AND SENT TO ER, PT HAD US AND HAS FOUND A BLOOD CLOT TO RIGHT LEG . CO SOME NAUSEA Triage Nursing Assessment: PT ALERT, WALKED IN, RESP EASY, SKIN W/D/P. CHEST CLEAR, . Physician History: This is a 58-year-old white male patient of Dr. Blunt who was sent over to the emergency department by the nurse practitioner Katelynn Mcclain because the patient was having postoperative right lower extremity swelling after a arthroscopy performed approximately 4 days ago. Patient had a right lower extremity venous Doppler performed but was interpreted by the radiologist and I reviewed the impression. The impression states nonoccluding thrombus in the greater saphenous vein (this vessels consider superficial vein). The right lower extremity deep system is negative for DVT. Patient denies shortness of breath. He has no chest pain. Per patient and patient family, Dr. Zhang, orthopedic surgery told the nurse practitioner that he prefer the patient be placed on anticoagulation therapy. Method of Injury: other (Postop day 4) Quality: aching Severity of Pain-Max: mild (Right lower extremity) Severity of Pain-Current: mild Lower Extremities Pain: leg: right Associated Symptoms: none Allergies/Adverse Reactions: bee venom protein (honey bee) Allergy (Severe, Verified 03/07/24 17:32) Swelling of Face throat seeling COVID-19 vaccine, mRNA, [id number], L Allergy (Severe, Verified 03/07/24 17:32) Difficulty Breathing 1st vaccine of Pfizer med / instant dizzy,confusion, itching and HTN. Sent to E.R. Instructed to never take again. Iodinated Contrast Media Allergy (Intermediate, Verified 03/07/24 17:32) Shortness of Breath itching Penicillins Allergy (Intermediate, Verified 03/07/24 17:32) Rash shellfish derived Allergy (Intermediate, Verified 03/07/24 17:32) Hives promethazine HCl [From Phenergan] Adverse Reaction (Severe, Verified 03/07/24 17:32) increased heart rate Home Medications: Allopurinol 300 mg [Zyloprim 300 mg] 300 mg PO HS 05/11/15 [History] Ergocalciferol (Vitamin D2) [Vitamin D] 50,000 unit PO WEEKLY 05/04/20 [History] Ropinirole HCl [Requip] 2 mg PO HS 05/04/20 [History] Rosuvastatin Calcium [Crestor] 20 mg PO HS 05/04/20 [History] Tamsulosin HCl 0.4 mg [Flomax 0.4 MG] 0.4 mg PO DAILY 05/04/20 [History] Esomeprazole Magnesium [Nexium 24Hr] 20 mg PO DAILY 10/24/21 [History] Fexofenadine HCl [Debi Allergy] 180 mg PO DAILY 10/24/21 [History] Hctz/Triamteren 37.5 mg/25 mg* [Maxzide-25MG Tablet] 1 tab PO DAILY 10/24/21 [History] Bupropion HCl Xl 150 mg [Wellbutrin XL 150 MG] 300 mg PO DAILY 08/03/22 [History] Losartan Potassium 50 mg PO DAILY 08/31/22 [History] Potassium Chloride 20 meq PO DAILY 05/17/23 [History] Celecoxib 100 mg [celeBREX 100 MG] 200 mg PO UD 02/04/24 [History] EPINEPHrine [Epipen 2-Prince] 0.3 mg IM UD 02/04/24 [History] Finasteride 5 mg [Proscar 5 MG] 5 mg PO UD 02/04/24 [History] Hx Tetanus, Diphtheria Vaccination/Date Given: No Hx Influenza Vaccination/Date Given: Yes Hx Pneumococcal Vaccination/Date Given: No Immunizations Up to Date: Yes Travel Risk - International Travel Have you traveled outside of the country in past 3 weeks: No - Emerging Infectious Disease Are you exhibiting symptoms associated with any current EIDs: No - Review of Systems Constitutional: No Symptoms Eyes: No Symptoms Ears, Nose, & Throat: No Symptoms Respiratory: No Symptoms Cardiac: No Symptoms Abdominal/Gastrointestinal: No Symptoms Genitourinary Symptoms: No Symptoms Musculoskeletal: Other (Postoperative swelling right lower extremity) Skin: No Symptoms Neurological: No Symptoms Psychological: No Symptoms Endocrine: No Symptoms Hematologic/Lymphatic: No Symptoms Immunological/Allergic: No Symptoms All Other Systems: Reviewed and Negative - Past Medical History Pertinent Past Medical History: Yes Neurological History: No Pertinent History ENT History: No Pertinent History Cardiac History: High Cholesterol, Hypertension Respiratory History: No Pertinent History Endocrine Medical History: No Pertinent History Musculoskeletal History: Osteoarthritis GI Medical History: Hernia, Other, GERD History: Other Psycho-Social History: Depression Male Reproductive Disorders: No Pertinent History Other Medical History: PSH: HERNIA, L KNEE SURGERY, 2 WRIST SURGERIES (ORIF L WRIST), PARATHYROID GLAND REMOVED, LITHOTRIPSY FOR KIDNEY STONES - Past Surgical History Past Surgical History: Yes Neuro Surgical History: No Pertinent History Cardiac: No Pertinent History Respiratory: No Pertinent History Gastrointestinal: No Pertinent History, Hernia Repair Genitourinary: Other Musculoskeletal: No Pertinent History, Orthopedic Surgery Male Surgical History: No Pertinent History Other Surgical History: Stents for kidney stones, parathyroidectomy. laproscopic interolosis, R knee, left wrist x2 left ankle Significant Family History: other (Father with Colon cacner dx 62) - Social History Smoking Status: Never smoker Exposure to second hand smoke: No Drug Use: none Patient Lives Alone: No - Social Determinants of Health Will the patient participate in the screening: Yes Do you worry about a steady place to live?: No Do you have any problems with any of the following?: No known problems In the past 12 months,have you had to go without utilities?: No Transportation Issues: No Has anyone in your support network made you feel unsafe?: No Have you or anyone in your house had to go without enough: No - Nursing Vital Signs Nursing Vital Signs: Initial Vital Signs Temperature 98.8 F 03/07/24 17:40 Pulse Rate 106 H 03/07/24 17:40 Respiratory Rate 18 03/07/24 17:40 Blood Pressure 102/56 03/07/24 17:40 O2 Sat by Pulse Oximetry 95 03/07/24 17:40 Pain Scale Pain Intensity 5 - Physical Exam General Appearance: no apparent distress, alert, anxiety, obese Eyes, Ears, Nose, Throat Exam: normal ENT inspection, moist mucous membranes Neck Exam: normal inspection, non-tender, supple, full range of motion Cardiovascular/Respiratory Exam: chest non-tender, normal breath sounds, regular rate/rhythm, heart sounds normal, no respiratory distress Gastrointestinal/Abdominal Exam: non-tender Back Exam: normal inspection, normal range of motion, No CVA tenderness, No vertebral tenderness Hips Exam: bilateral: non-tender, normal inspection, normal range of motion, no evidence of injury Legs Exam: right leg: soft tissue tenderness (Postop right lower extremity swelling), swelling (Postop right lower extremity swelling), left leg: non-tender, normal inspection, normal range of motion, no evidence of injury Knees Exam: right knee: soft tissue tenderness (Postop right lower extremity swelling), swelling (Postop right lower extremity swelling), left knee: non- tender, normal inspection, normal range of motion, no evidence of injury Ankle Exam: right ankle: swelling (Postop right lower extremity swelling), left ankle: non-tender, normal inspection, normal range of motion, no evidence of i njury Foot Exam: right foot: swelling (Postop right lower extremity swelling), left foot: non-tender, normal inspection, normal range of motion, no evidence of injury Neuro/Tendon Exam: normal sensation, normal motor functions, normal tendon functions Mental Status Exam: alert, oriented x 3, cooperative Skin Exam: normal color, warm, dry SpO2 Interpretation: normal SpO2: 96 O2 Delivery: Room Air - Course Nursing assessment & vital signs reviewed: Yes Ordered Tests: Active Orders 24 hr Category Date Time Status BMP Stat Lab 03/07/24 18:06 Completed CBC W DIFF Stat Lab 03/07/24 18:06 Completed PROTIME WITH INR Stat Lab 03/07/24 18:06 Completed Medication Summary Discontinued Medications Generic Name Dose Route Start Last Admin Trade Name Freq PRN Reason Stop Dose Admin Apixaban 5 mg 03/07/24 18:45 Apixaban 2.5 Mg Tablet PO 03/07/24 18:46 STAT ONE Enoxaparin Sodium 100 mg 03/07/24 18:45 03/07/24 18:53 Enoxaparin Sodium 120 Mg/0.8 Ml Syringe SQ 03/07/24 18:46 100 mg STAT STA Administration Enoxaparin Sodium Confirm 03/07/24 18:52 Enoxaparin Sodium 120 Mg/0.8 Ml Syringe Administered 03/07/24 18:53 Dose 120 mg SQ .STK-MED ONE Lab/Rad Data: Laboratory Result Diagrams 03/07/24 18:06 03/07/24 18:06 Laboratory Results 03/07/24 03/07/24 03/07/24 Range/Units 18:06 18:06 18:06 WBC 14.2 H (4.23-9.07) x10^3/uL RBC 5.10 (4.63-6.08) x10^6/uL Hgb 14.7 (13.7-17.5) g/dL Hct 44.3 (40.1-51.0) % MCV 86.9 (79.0-92.2) fL MCH 28.8 (25.7-32.2) pg MCHC 33.2 (32.3-36.5) g/dL RDW 13.5 (11.6-14.4) % Plt Count 328 (163-337) x10^3/uL MPV 9.4 (9.4-12.4) fL Gran % 82.1 H (34.0-67.9) % Immature Gran % (Auto) 0.8 H (0.001-0.429) % Nucleat RBC Rel Count 0.0 (0.00-0.2) % Eos # (Auto) 0.27 (0.04-0.54) x10^3/uL Immature Gran # (Auto) 0.11 H (0.001-0.031) x10^3u/L Absolute Lymphs (auto) 1.24 L (1.32-3.57) x10^3/uL Absolute Monos (auto) 0.88 H (0.30-0.82) x10^3/uL Absolute Nucleated RBC 0.00 (0.00-0.012) x10^3u/L Lymphocytes % 8.7 L (21.8-53.1) % Monocytes % 6.2 (5.3-12.2) % Eosinophils % 1.9 (0.8-7.0) % Basophils % 0.3 (0.2-1.2) % Absolute Granulocytes 11.65 H (1.78-5.38) x10^3/uL Basophils # 0.04 (0.01-0.08) x10^3/uL PT 10.9 (9.4-12.5) SECONDS INR 1.00 (0.8-3.0) Sodium 138 (135-145) mmol/L Potassium 3.6 (3.5-5.1) mmol/L Chloride 102 (98-107) mmol/L Carbon Dioxide 28 (22-30) mmol/L Anion Gap 10.5 (5-15) MEQ/L BUN 24 H (9-20) mg/dL Creatinine 1.33 H (0.66-1.25) mg/dL Estimated GFR 62.3 ML/MIN Glucose 133 H (74-106) mg/dL Calcium 9.5 (8.4-10.2) mg/dL - Progress Progress: unchanged Progress Note: 03/07/24 19:01 My medical decision making and the assignment of moderate complexity is based on review of the patient's past medical history, review the patient's medication list, reviewed patient drug allergy list, history present dose and physical findings on examination. I also reviewed the outpatient venous Doppler study radiologist impression/interpretation. The workup in this patient includes CBC, BMP, PT/INR. The patient presents with a diagnosis of superficial venous thrombosis of the right greater saphenous vein. I reviewed literature regarding anticoagulating these patients versus not anticoagulating these patients with superficial venous thrombosis. I reviewed this information with the patient and his spouse. We agreed together, we will place the patient on low-dose anticoagulation therapy as recommended in some studies. Patient will follow up with orthopedic surgeon on 03/10/24. Counseled pt/family regarding: lab results, diagnosis, need for follow-up, rad results Medical Desision Making - Independent Historian Additional History obtained from: Spouse - Diagnostic Testing Diagnostic test were ordered, analyzed, and reviewed by me: Yes - Risk of complications The pt has a mod risk of morbidity or mortality based on: Need for prescription drug management - Departure Departure Disposition: Home Clinical Impression: Superficial vein thrombosis Condition: Stable Critical Care Time: No Referrals: ELTON BLUNT [Primary Care Provider] - Follow up/PCP as directed Prescriptions: Apixaban [Eliquis] 5 mg PO BID #14 tablet
== END 2024-03-07 19:17 | disposition home or self-care (01) ==
LOC: ED 17:01
DX: I82.811 Embolism and thrombosis of superficial veins of right lower extremity (principal); M25.561 Pain in right knee
CPT/HCPCS: 36415; 80048; 85025; 85610; 96372; 99283; 99284; J1650; A9270-GY

== ENCOUNTER 2024-03-10 11:58 | Observation (INO) | payer OTHER ==
[2024-03-10] MEDS ORDERED: TYLENOL 325 MG PO PRN (12:56)
--- NOTE | 2024-03-10 13:26 | PCM.HP ---
History of Present Illness - Chief Complaint Chief Complaint: Partial SBO Date: 03/10/24 History of Present Illness: Mr.RAMSEY ALFONSO is a 58 year old male with PMHX of SBO, recent R knee arthroscopy with Ortho at [facility] with DVT on Eliquis, HTN, hyperlipidema OA, hernia, GERD, depression, and obesity. He was seen today by PCP and reports abd pain for about 3 days now and made himself drinks clears only as he knows the s/s of SBO and thought he may have one. CT abd done OP shows possible partial SBO. IV fluids, pain meds, and NG to LIS started. Surgery consulted for further evaluation. Will need direction by surgery on how to proceed with anticoagulation. He did take his normal Eliquis dosing this AM. He C/O abd. distention, bloating, and pain x3 days. Nothing makes it worse or better. He denies CP, SOB, N/V/D or fever. - Review of Systems Constitutional: No Fever, No Chills Eyes: No Symptoms Ears, Nose, & Throat: No Symptoms Respiratory: No Cough, No Short Of Breath Cardiac: No Chest Pain, No Edema, No Syncope Abdominal/Gastrointestinal: Abdominal Pain (generalized with abd distention), No Nausea, No Vomiting, No Diarrhea Genitourinary Symptoms: No Dysuria Musculoskeletal: No Back Pain, No Neck Pain Skin: No Rash Neurological: No Dizziness, No Focal Weakness, No Sensory Changes Psychological: No Symptoms Endocrine: No Symptoms Hematologic/Lymphatic: No Symptoms Immunological/Allergic: No Symptoms Medications & Allergies Home Medications: Home Medication List Allopurinol 300 mg [Zyloprim 300 mg] 300 mg PO HS 05/11/15 [History Confirmed 03/07/24] Ergocalciferol (Vitamin D2) [Vitamin D] 50,000 unit PO WEEKLY 05/04/20 [History Confirmed 03/07/24] Ropinirole HCl [Requip] 2 mg PO HS 05/04/20 [History Confirmed 03/07/24] Rosuvastatin Calcium [Crestor] 20 mg PO HS 05/04/20 [History Confirmed 03/07/24] Tamsulosin HCl 0.4 mg [Flomax 0.4 MG] 0.4 mg PO DAILY 05/04/20 [History Confirmed 03/07/24] Esomeprazole Magnesium [Nexium 24Hr] 20 mg PO DAILY 10/24/21 [History Confirmed 03/07/24] Fexofenadine HCl [Dbei Allergy] 180 mg PO DAILY 10/24/21 [History Confirmed 03/07/24] Hctz/Triamteren 37.5 mg/25 mg* [Maxzide-25MG Tablet] 1 tab PO DAILY 10/24/21 [History Confirmed 03/07/24] Bupropion HCl Xl 150 mg [Wellbutrin XL 150 MG] 300 mg PO DAILY 08/03/22 [History Confirmed 03/07/24] Losartan Potassium 50 mg PO DAILY 08/31/22 [History Confirmed 03/07/24] Hydrocodone/Acetaminophen [Hydrocodone-Acetamin 5-325 mg] 1 tab PO Q4HPRN PRN #20 tablet MDD 6 05/17/23 [Rx Confirmed 03/07/24] Potassium Chloride 20 meq PO DAILY 05/17/23 [History Confirmed 03/07/24] Celecoxib 100 mg [celeBREX 100 MG] 200 mg PO UD 02/04/24 [History Confirmed 03/07/24] EPINEPHrine [Epipen 2-Prince] 0.3 mg IM UD 02/04/24 [History Confirmed 03/07/24] Finasteride 5 mg [Proscar 5 MG] 5 mg PO UD 02/04/24 [History Confirmed 03/07/24] Hydrocodone/Acetaminophen [Hydrocodone-Acetamin 5-325 mg] 1 - 2 tab PO Q4HPRN PRN #20 tablet MDD 6 03/03/24 [Rx Confirmed 03/07/24] Apixaban [Eliquis] 5 mg PO BID #14 tablet 03/07/24 [Rx] Allergies/Adverse Reactions: Allergies Allergy/AdvReac Type Severity Reaction Status Date / Time bee venom protein (honey bee) Allergy Severe Swelling Verified 03/07/24 17:32 of Face COVID-19 vaccine, mRNA, Allergy Severe Difficulty Verified 03/07/24 17:32 [id number], L Breathing Iodinated Contrast Media Allergy Intermediate Shortness Verified 03/07/24 17:32 of Breath Penicillins Allergy Intermediate Rash Verified 03/07/24 17:32 shellfish derived Allergy Intermediate Hives Verified 03/07/24 17:32 promethazine HCl AdvReac Severe Verified 03/07/24 17:32 [From Phenergan] - Past Medical History Past Medical History: Yes Neurological History: No Pertinent History ENT History: No Pertinent History Cardiac History: High Cholesterol, Hypertension Respiratory History: No Pertinent History Endocrine Medical History: No Pertinent History Musculoskelatal History: Osteoarthritis GI Medical History: Hernia, Other, GERD History: Other Pyscho-Social History: Depression Male Reproductive Disorders: No Pertinent History Comment: PSH: HERNIA, L KNEE SURGERY, 2 WRIST SURGERIES (ORIF L WRIST), PARATHYROID GLAND REMOVED, LITHOTRIPSY FOR KIDNEY STONES - Past Surgical History Past Surgical History: Yes Neuro Surgical History: No Pertinent History Cardiac History: No Pertinent History Respiratory Surgery: No Pertinent History GI Surgical History: No Pertinent History, Hernia Repair Genitourinary Surgical Hx: Other Musculskeletal Surgical Hx: No Pertinent History, Orthopedic Surgery Male Surgical History: No Pertinent History Other Surgical History: Stents for kidney stones, parathyroidectomy. laproscopic interolosis, R knee, left wrist x2 left ankle Significant Family History: other (Father with Colon cacner dx 62) - Social History Smoking Status: Never smoker Exposure to second hand smoke: No Alcohol: None Drug Use: none - Social Determinants of Health Will the patient participate in the screening: Yes Do you worry about a steady place to live?: No In the past 12 months,have you had to go without utilities?: No Have you or anyone in your house had to go without enough: No Transportation Issues: No Has anyone in your support network made you feel unsafe?: No Does the patient want assistance with any of the above?: No - Physical Exam General Appearance: no apparent distress, alert, obese Neurologic Exam: alert, oriented x 3, cooperative, normal mood/affect, nml cerebellar function, nml station & gait, sensation nml, No motor deficits Eye Exam: PERRL/EOMI, eyes nml inspection Ears, Nose, Throat Exam: normal ENT inspection, TMs normal, pharynx normal, moist mucous membranes Neck Exam: normal inspection, non-tender, supple, full range of motion Respiratory Exam: normal breath sounds, lungs clear, No respiratory distress Cardiovascular Exam: regular rate/rhythm, normal heart sounds, normal peripheral pulses Gastrointestinal/Abdomen Exam: normal bowel sounds, tenderness, distention, No mass Back Exam: normal inspection, normal range of motion, No CVA tenderness, No vertebral tenderness Extremity Exam: normal inspection, normal range of motion, pelvis stable Skin Exam: normal color, warm, dry, No rash Lymphatic Exam: No adenopathy Assessment/Plan (1) Partial small bowel obstruction Current Visit: No Status: Acute Assessment & Plan: - As seen on CT - CBC, CMP reviewed - Mg+ added - NG to LIS - GS consult - NPO - IV narcotic pain med PRN - Protonix IV Code(s): K56.600 - PARTIAL INTESTINAL OBSTRUCTION, UNSPECIFIED TO CAUSE (2) Superficial vein thrombosis Current Visit: No Status: Acute Assessment & Plan: - Continue Eliquis unless surgery wants meds changed - recent dx after procedure with ortho Code(s): I82.890 - ACUTE EMBOLISM AND THROMBOSIS OF OTHER SPECIFIED VEINS (3) Hypertension Current Visit: No Status: Chronic Assessment & Plan: - Continue home meds- give via NG - BP stable Code(s): I10 - ESSENTIAL (PRIMARY) HYPERTENSION (4) Hyperlipidemia Current Visit: Yes Status: Chronic Assessment & Plan: - hold med for now- NPO Code(s): E78.5 - HYPERLIPIDEMIA, UNSPECIFIED (5) Obesity Current Visit: Yes Status: Chronic Assessment & Plan: - chronic, advised diet and exercise control VTE: Eliquis PPI: Protonix IV Next of KIN: D/C plan: 2-3 days Code status: Full Code(s): E66.9 - OBESITY, UNSPECIFIED
[2024-03-10] MEDS: Sodium Chloride 0.9% 1000 ML 1,000 ML IV SCH (16:43)
[2024-03-10] MEDS: Hydromorphone 1 mg/ml Injection IV PRN (16:45)
[2024-03-10] MEDS: PROTONIX 40 MG IV IV SCH (16:45)
[2024-03-10] MEDS: PHARMACY RENAL DOSING MC ONE (16:49)
[2024-03-10] MEDS: BENADRYL 12.5 MG/5 ML PO PRN (18:16)
[2024-03-10] MEDS ORDERED: Flomax 0.4 MG ONE (21:05)
[2024-03-10] MEDS ORDERED: Cozaar 50 MG ONE (21:05)
[2024-03-10] MEDS: LYRICA 100MG PO SCH (21:20)
[2024-03-10] MEDS: REQUIP 2MG TAB PO SCH (21:20)
[2024-03-10] MEDS: ENOXAPARIN SODIUM SQ SCH (21:20)
[2024-03-10] MEDS: Wellbutrin XL 150 MG PO SCH (21:21)
[2024-03-10] MEDS: Cozaar 50 MG PO SCH (21:21)
[2024-03-10] MEDS: Flomax 0.4 MG PO SCH (21:21)
[2024-03-10] MEDS ORDERED: NON-FORMULARY ITEM (Ropinirole Hcl [Requip] 1 MG Tablet) PO SCH (22:00)
[2024-03-11 04:57] LABS: Hematocrit 38.5 % (40.1-51.0); Hemoglobin 12.7 g/dL (13.7-17.5); Mean Cell Volume 87.3 fL (79.0-92.2); Mean Corpuscular Hemoglobin 28.8 pg (25.7-32.2); Mean Platelet Volume 10.7 fL (9.4-12.4); Platelet Count 281 x10^3/uL (163-337); Red Blood Count 4.41 x10^6/uL (4.63-6.08); Red Cell Distribution Width 13.4 % (11.6-14.4); White Blood Count 10.5 x10^3/uL (4.23-9.07)
[2024-03-11 05:10] LABS: ALBUMIN 3.6 g/dL (3.5-5.0); ANION GAP 9.6 MEQ/L (5-15); BILIRUBIN,TOTAL 0.7 mg/dL (0.2-1.3); Calcium 8.9 mg/dL (8.4-10.2); Creatinine 1 1.06 mg/dL (0.66-1.25); EST GLOMERULAR FILTRATION RATE 81.9 ML/MIN; Potassium 3.5 mmol/L (3.5-5.1); Total Protein 6.4 g/dL (6.3-8.2)
[2024-03-11] MEDS ORDERED: NON-FORMULARY ITEM (Losartan Potassium [Losartan Potassium] 25 MG Tablet) PO SCH (10:00)
[2024-03-11] MEDS: Maxzide-25MG Tablet PO SCH (10:35)
[2024-03-11] MEDS: Proscar 5 MG PO SCH (10:36)
--- NOTE | 2024-03-11 11:58 | CONS ---
HISTORY OF PRESENT ILLNESS: A patient of Dr. Gonzalez Guadalupe who apparently did a gallbladder earlier this year. He has done prior endoscopy on him and has also done a laparoscopic lysis of adhesions in the past. The patient is a 58-year-old who was admitted with some abdominal pain. He said he had some abdominal pain a few days ago. He cut back on his diet, got better, then ate again and had a little bit of pain. Was seen by Dr. Beckwith. Apparently CAT scan was ordered and they questioned whether he had a partial obstruction. He did have a bowel movement yesterday. He is passing flatus now. He had a recent knee scope, possibly one of the orthopedists here, possibly Dr. Zhang. I do not have the name in front of me. PAST MEDICAL HISTORY: He has had a history of DVT, hypertension, hyperlipidemia, osteoarthritis. He has had reflux. He has had depression. He has had some obesity. He did have a hernia repair, he thinks maybe back in 2006 in [place]. Since then, he has some intermittent question of partial obstruction or enteritis. He has had a laparoscopic lysis of adhesions by Dr. Guadalupe in the past. He has endoscopy by Dr. Guadalupe in the past. He has also had a cholecystectomy by Dr. Guadalupe earlier this year. He has been on Eliquis was recommended for a history of DVT in the past. HOME MEDICATIONS: Allopurinol, ergocalciferol, ropinirole, rosuvastatin for hyperlipidemia. He has been on tamsulosin. He has been on esomeprazole, fexofenadine, hydrochlorothiazide, triamterene, bupropion, losartan. He has been on some hydrocodone post his cholecystectomy in the past. He has been on some potassium chloride. He has been on celecoxib, finasteride. He has been on the Eliquis. PAST SURGICAL HISTORY: He has also had some stents for some kidney stones in the past and parathyroid surgery, right knee surgery, left wrist surgery, left ankle surgery in the past as well. SOCIAL HISTORY: No smoking. No alcohol abuse. FAMILY HISTORY: Father had colon cancer in the past. REVIEW OF SYSTEMS: Otherwise, 12 systems reviewed. Pertinent for medical problems noted above. No chest pain or palpitations. Other systems negative or noncontributory as above and per preadmission questionnaire. PHYSICAL EXAMINATION: GENERAL: Again, he is passing flatus, in no acute distress. VITAL SIGNS: Stable. HEENT: Sclerae anicteric. Oral mucous membranes moist. NECK: No JVD. CARDIOVASCULAR: Regular rate and rhythm. RESPIRATORY: Equal excursion, nonlabored breathing. ABDOMEN: Soft. He is a little overweight. There is no palpable incarcerated hernia. It seems there was some minimal tenderness on my exam. No peritoneal signs. A very soft, benign abdomen at this time. EXTREMITIES: No edema. NEUROLOGIC: Alert. Extraocular movements intact. PSYCHIATRIC: Appropriate mood and affect. ASSESSMENT: History of some abdominal pain. He had a CT scan. Films reviewed by Dr. Pereyra. Abdomen is a little bit more distended and the jejunal loop is a little bit slightly more decompressed, some distal loops. He is passing flatus. He is not acute, very soft abdomen. No emergent surgery necessary. He has labs pending at this time. He does not appear to warrant any emergent operation. It should be noted he has had a laparoscopic enterolysis since he had a hernia repair years ago, and he has had a laparoscopic cholecystectomy procedure this year. Either way, no emergent surgery necessary. He agrees with bowel rest. Could have an NG placed to limit any further distending of the proximal small bowel. He is passing a little bit of flatus. He does not in no way need any emergent surgery. We will have them let Dr. Guadalupe know he is here. Needs some bowel rest. Hopefully will improve over the next day or two. If he fails to improve over the next day or two, we could consider small bowel followthrough on , as Sunday is a holiday. Again, he has had laparoscopic surgery by Dr. Guadalupe this year. Continue bowel rest, IV hydration. Would recommend holding the Eliquis. We could keep him on Lovenox or Lovenox b.i.d. for now just in case he fails to improve or needed intervention would need to be off Eliquis, as I am not sure if they have the extensive correction factor here. Otherwise, continue medical management, medications for his hypertension and hyperlipidemia. Regarding his history of DVT, whether it was superficial or deep, either way he was on Eliquis. Recommend holding Eliquis and switch him to Lovenox in the short term procedure with Orthopedics. Otherwise, continue medical management of his history of depression and reflux as well. Our group will follow with you. We will have them let Dr. Guadalupe know of the patient's visit here. No emergent surgery necessary at this moment.
--- NOTE | 2024-03-11 11:59 | PCM.NOTE ---
Date and Time: 03/11/24 1153 Subjective Assessment: Reports flatus and decreased abdominal pain. Did not tolerate NG tube placement. No bowel movement. - Review of Systems Constitutional: No Symptoms Eyes: No Symptoms Ears, Nose, & Throat: No Symptoms Respiratory: No Symptoms Cardiac: No Symptoms Abdominal/Gastrointestinal: Abdominal Pain Genitourinary Symptoms: No Symptoms Musculoskeletal: No Symptoms Skin: No Symptoms Neurological: No Symptoms Psychological: No Symptoms Endocrine: No Symptoms Hematologic/Lymphatic: No Symptoms Immunological/Allergic: No Symptoms All Other Systems: Reviewed and Negative Objective Exam General Appearance: no apparent distress, alert Neurologic Exam: alert, oriented x 3 Skin Exam: normal color, warm Eye Exam: PERRL, EOMI, eyes nml inspection Ears, Nose, Throat Exam: normal ENT inspection Neck Exam: normal inspection, non-tender, supple, full range of motion Respiratory Exam: normal breath sounds, lungs clear Cardiovascular Exam: regular rate/rhythm, normal heart sounds Gastrointestinal/Abdomen Exam: soft, distention, other (decreased bowel sounds) Extremity Exam: normal inspection, normal range of motion Back Exam: normal range of motion Objective Data Vital Signs: Vital Signs - 24 hr Temp Pulse Resp BP Pulse Ox 03/11/24 11:44 97.5 F 75 20 125/72 95 03/11/24 08:00 97.8 F 67 18 143/76 96 03/11/24 04:00 97.7 F 70 18 131/84 92 L 03/11/24 00:00 96.6 F 77 18 135/86 91 L 03/10/24 20:00 97.0 F 76 20 127/89 95 03/10/24 13:07 90 18 129/50 100 Pain Assessment - Last Documented Pain Intensity 7 Pain Scale Used 0-10 Pain Scale Intake and Output: Intake & Output 03/08/24 03/09/24 03/10/24 03/11/24 11:59 11:59 11:59 11:59 Intake Total 1378 Output Total 750 Balance 628 Weight 126.8 kg Lab Results: Lab Results-Last 24 Hours 03/11/24 03/11/24 Range/Units 04:00 04:00 WBC 10.5 H (4.23-9.07) x10^3/uL RBC 4.41 L (4.63-6.08) x10^6/uL Hgb 12.7 L (13.7-17.5) g/dL Hct 38.5 L (40.1-51.0) % MCV 87.3 (79.0-92.2) fL MCH 28.8 (25.7-32.2) pg MCHC 33.0 (32.3-36.5) g/dL RDW 13.4 (11.6-14.4) % Plt Count 281 (163-337) x10^3/uL MPV 10.7 (9.4-12.4) fL Sodium 139 (135-145) mmol/L Potassium 3.5 (3.5-5.1) mmol/L Chloride 104 (98-107) mmol/L Carbon Dioxide 29 (22-30) mmol/L Anion Gap 9.6 (5-15) MEQ/L BUN 18 (9-20) mg/dL Creatinine 1.06 (0.66-1.25) mg/dL Estimated GFR 81.9 ML/MIN Glucose 91 (74-106) mg/dL Calcium 8.9 (8.4-10.2) mg/dL Total Bilirubin 0.70 (0.2-1.3) mg/dL AST 25 (17-59) U/L ALT 34 (0-50) U/L Alkaline Phosphatase 94 (38-126) U/L Serum Total Protein 6.4 (6.3-8.2) g/dL Albumin 3.6 (3.5-5.0) g/dL Assessment/Plan (1) Partial small bowel obstruction Current Visit: No Status: Acute Assessment & Plan: Clinically improving but awaiting surgery reassessment. Flatus but no BM. Did not tolerate NGT placement. Code(s): K56.600 - PARTIAL INTESTINAL OBSTRUCTION, UNSPECIFIED TO CAUSE (2) Hypertension Current Visit: No Status: Chronic Assessment & Plan: Monitor BP. Code(s): I10 - ESSENTIAL (PRIMARY) HYPERTENSION (3) Hyponatremia Current Visit: No Status: Resolved Assessment & Plan: Follow electrolytes. Code(s): E87.1 - HYPO-OSMOLALITY AND HYPONATREMIA (4) Hypokalemia Current Visit: No Status: Resolved Assessment & Plan: Follow electrolytes. Replete as needed. Code(s): E87.6 - HYPOKALEMIA (5) Hyperlipidemia Current Visit: Yes Status: Chronic Assessment & Plan: Hold medications. Code(s): E78.5 - HYPERLIPIDEMIA, UNSPECIFIED Telemedicine Encounter - Telemedicine Encounter Telemedicine Encounter: "The entirety of this encounter was performed via Telemedicine" This visit was performed using real-time audio and video connection between my location and thepatients locationwith the assistance of a surrogateat the patients location. Written or verbal consent was obtained from the patient/guardian to perform this visit usingsynchronoustelemedicine technology. Any patient questions regarding the telemedicine interaction were answered.
[2024-03-11] MEDS: D5W/0.45NS W/ 20mEq KCl 1000 ML 1,000 ML IV SCH (18:33)
[2024-03-11] MEDS: Flomax 0.4 MG PO SCH (21:06)
[2024-03-11] MEDS: Cozaar 50 MG PO SCH (21:06)
[2024-03-11] MEDS: Wellbutrin XL 150 MG PO SCH (22:13)
[2024-03-12 04:01] VITALS: RESP 18
[2024-03-12 06:15] LABS: Absolute Neutrophil Ct (ANC) 4.45 x10^3/uL (1.78-5.38); BASOPHIL % 0.5 % (0.2-1.2); Basophil (Absolute #) 0.04 x10^3/uL (0.01-0.08); Eosinophil % 3.1 % (0.8-7.0); Eosinophil (Absolute #) 0.23 x10^3/uL (0.04-0.54); Hematocrit 39.9 % (40.1-51.0); Hemoglobin 13.2 g/dL (13.7-17.5); IMMATURE GRAN # 0.05 x10^3u/L (0.001-0.031); IMMATURE GRAN % 0.7 % (0.001-0.429); Lymphocyte (Absolute #) 2.05 x10^3/uL (1.32-3.57); Lymphocytes % 27.4 % (21.8-53.1); Mean Cell Volume 85.6 fL (79.0-92.2); Mean Corpuscular Hemoglobin 28.3 pg (25.7-32.2); Mean Corpuscular Hgb Concent. 33.1 g/dL (32.3-36.5); Mean Platelet Volume 10.3 fL (9.4-12.4); Monocyte (Absolute #) 0.65 x10^3/uL (0.30-0.82); Monocytes % 8.7 % (5.3-12.2); Neutrophil % 59.6 % (34.0-67.9); Platelet Count 281 x10^3/uL (163-337); Red Blood Count 4.66 x10^6/uL (4.63-6.08); Red Cell Distribution Width 13.2 % (11.6-14.4); White Blood Count 7.5 x10^3/uL (4.23-9.07)
[2024-03-12 06:45] LABS: ANION GAP 8.5 MEQ/L (5-15); Calcium 9.1 mg/dL (8.4-10.2); Creatinine 1 0.95 mg/dL (0.66-1.25); EST GLOMERULAR FILTRATION RATE 93.4 ML/MIN; MAGNESIUM 2.2 mg/dL (1.6-2.3); Potassium 3.2 mmol/L (3.5-5.1)
[2024-03-12] MEDS: TYLENOL 325 MG PO PRN (08:07)
[2024-03-12] MEDS ORDERED: NORCO 5/325 MG PO PRN (10:22)
[2024-03-12 12:19] VITALS: BP 142/91; PULSE 66; TEMP 98; O2SAT 97
--- NOTE | 2024-03-12 15:01 | PCM.DS ---
Discharge Summary Date of Admission: 03/10/24 11:58 Date of Discharge: 03/12/24 Admitting Physician: TONA LOREDO MD Consults: Consults on Case 03/10/24 12:54 Consult Surgery ROUTINE Primary Care Provider: ELTON MÉNDEZ Allergies Allergies bee venom protein (honey bee) Allergy (Severe, Verified 03/07/24 17:32) Swelling of Face throat seeling COVID-19 vaccine, mRNA, [id number], L Allergy (Severe, Verified 03/07/24 17:32) Difficulty Breathing 1st vaccine of Pfizer med / instant dizzy,confusion, itching and HTN. Sent to [facility]. Instructed to never take again. Iodinated Contrast Media Allergy (Intermediate, Verified 03/07/24 17:32) Shortness of Breath itching Penicillins Allergy (Intermediate, Verified 03/07/24 17:32) Rash shellfish derived Allergy (Intermediate, Verified 03/07/24 17:32) Hives promethazine HCl [From Phenergan] Adverse Reaction (Severe, Verified 03/07/24 17:32) increased heart rate Hospital Summary - Hospital Course Hospital Course: Patient presented to the hospital with recurrent partial SBO with a transition point but has demonstrated a return of bowel function (multiple BMs and tolerated oral intake advancement). The patient was seen by surgery and authorized for discharge with outpatient imaging scheduled for tomorrow. - Vitals & Intake/Output Vital Signs: Vital Signs Temperature 98 F 03/12/24 12:00 Pulse Rate 66 03/12/24 12:00 Respiratory Rate 18 03/12/24 12:00 Blood Pressure 142/91 03/12/24 12:00 O2 Sat by Pulse Oximetry 97 03/12/24 12:00 Intake & Output: Intake & Output 03/10/24 03/11/24 03/12/24 03/13/24 11:59 11:59 11:59 11:59 Intake Total 1378 840 240 Output Total 750 3410 420 Balance 628 -2570 -180 Weight 126.8 kg 123.5 kg - Lab Result Diagrams: 03/12/24 06:08 03/12/24 06:08 Lab Results-Last 24 Hrs: Lab Results-Last 24 Hours 03/12/24 03/12/24 Range/Units 06:08 06:08 WBC 7.5 (4.23-9.07) x10^3/uL RBC 4.66 (4.63-6.08) x10^6/uL Hgb 13.2 L (13.7-17.5) g/dL Hct 39.9 L (40.1-51.0) % MCV 85.6 (79.0-92.2) fL MCH 28.3 (25.7-32.2) pg MCHC 33.1 (32.3-36.5) g/dL RDW 13.2 (11.6-14.4) % Plt Count 281 (163-337) x10^3/uL MPV 10.3 (9.4-12.4) fL Gran % 59.6 (34.0-67.9) % Immature Gran % (Auto) 0.7 H (0.001-0.429) % Nucleat RBC Rel Count 0.0 (0.00-0.2) % Eos # (Auto) 0.23 (0.04-0.54) x10^3/uL Immature Gran # (Auto) 0.05 H (0.001-0.031) x10^3u/L Absolute Lymphs (auto) 2.05 (1.32-3.57) x10^3/uL Absolute Monos (auto) 0.65 (0.30-0.82) x10^3/uL Absolute Nucleated RBC 0.00 (0.00-0.012) x10^3u/L Lymphocytes % 27.4 (21.8-53.1) % Monocytes % 8.7 (5.3-12.2) % Eosinophils % 3.1 (0.8-7.0) % Basophils % 0.5 (0.2-1.2) % Absolute Granulocytes 4.45 (1.78-5.38) x10^3/uL Basophils # 0.04 (0.01-0.08) x10^3/uL Sodium 137 (135-145) mmol/L Potassium 3.2 L (3.5-5.1) mmol/L Chloride 105 (98-107) mmol/L Carbon Dioxide 27 (22-30) mmol/L Anion Gap 8.5 (5-15) MEQ/L BUN 11 (9-20) mg/dL Creatinine 0.95 (0.66-1.25) mg/dL Estimated GFR 93.4 ML/MIN Glucose 115 H (74-106) mg/dL Calcium 9.1 (8.4-10.2) mg/dL Magnesium 2.2 (1.6-2.3) mg/dL - Radiology Exams Ordered Rad Exams-Entire Visit: Radiology Procedures Category Date Time Status SMALL BOWEL FOLLOWING UGI Routine Exams 03/12/24 08:00 Ordered Discharge Exam General Appearance: no apparent distress, alert Neurologic Exam: alert, oriented x 3, cooperative, cylinder handler II-XII nml as tested, normal mood/affect, nml cerebellar function, nml station & gait, sensation nml Eye Exam: PERRL, EOMI, eyes nml inspection Ears, Nose, Throat Exam: normal ENT inspection Neck Exam: normal inspection, non-tender, supple, full range of motion Respiratory Exam: normal breath sounds, lungs clear Cardiovascular Exam: regular rate/rhythm, normal heart sounds Gastrointestinal/Abdomen Exam: soft, normal bowel sounds, other (nontender. No peritoneal signs or rigidity.) Back Exam: normal range of motion Extremity Exam: normal inspection, normal range of motion Skin Exam: normal color, warm Final Diagnosis/Problem List - Final Discharge Diagnosis/Problem (1) Partial small bowel obstruction Current Visit: No Status: Acute Code(s): K56.600 - PARTIAL INTESTINAL OBSTRUCTION, UNSPECIFIED TO CAUSE (2) Hypertension Current Visit: No Status: Chronic Code(s): I10 - ESSENTIAL (PRIMARY) HYPERTENSION (3) Hyponatremia Current Visit: No Status: Resolved Code(s): E87.1 - HYPO-OSMOLALITY AND HYPONATREMIA (4) Hypokalemia Current Visit: No Status: Resolved Code(s): E87.6 - HYPOKALEMIA (5) Hyperlipidemia Current Visit: Yes Status: Chronic Code(s): E78.5 - HYPERLIPIDEMIA, UNSPECIFIED Telemedicine Encounter - Telemedicine Encounter Telemedicine Encounter: "The entirety of this encounter was performed via Telemedicine" This visit was performed using real-time audio and video connection between my location and thepatients locationwith the assistance of a surrogateat the patients location. Written or verbal consent was obtained from the patient/guar sandra to perform this visit usingsynchradventist health tularetelemedicine technology. Any patient questions regarding the telemedicine interaction were answered. Please note that this discharge required greater than 30 minutes to complete. - Discharge Disposition: Home, Self-Care Condition: Stable Prescriptions: Continue Allopurinol 300 mg [Zyloprim 300 mg] 300 mg PO HS Ergocalciferol (Vitamin D2) [Vitamin D] 50,000 unit PO WEEKLY Ropinirole HCl [Requip] 2 mg PO HS Tamsulosin HCl 0.4 mg [Flomax 0.4 MG] 0.4 mg PO HS Rosuvastatin Calcium [Crestor] 20 mg PO HS Fexofenadine HCl [Debi Allergy] 180 mg PO HS Bupropion HCl Xl 150 mg [Wellbutrin XL 150 MG] 300 mg PO HS Losartan Potassium 50 mg PO HS Potassium Chloride 20 meq PO DAILY Finasteride 5 mg [Proscar 5 MG] 5 mg PO DAILY EPINEPHrine [Epipen 2-Rpince] 0.3 mg IM UD Hydrocodone/Acetaminophen [Hydrocodone-Acetamin 5-325 mg] 1 - 2 tab PO Q4HPRN PRN #20 tablet MDD 6 PRN Reason: Pain Apixaban [Eliquis] 5 mg PO BID #14 tablet Esomeprazole Magnesium 40 mg PO HS Multivitamin 1 each PO DAILY Potassium Chloride [Klor-Con 10] 10 meq PO QHS Pregabalin [Lyrica 100Mg] 100 mg PO BID Triamterene/Hydrochlorothiazid [Triamterene-Hctz 37.5-25 mg Tb] 1 each PO DAILY Follow up with: ELTON MÉNDEZ [Primary Care Provider] - LAKEISHA MCBRIDE MD [ACTIVE STAFF] -
--- NOTE | 2024-03-12 19:31 | CONS ---
The patient is well-known to myself. I actually performed a ruptured aneurysm on his mother some 25 years ago and she survived. Either I, or our group, has operated on him 2 or 3 times. He had a laparoscopic cholecystectomy. He has had a small bowel obstruction laparoscopy, laparotomy. He had a piece of mesh. I believe the last surgical intervention, we did improve the mesh situation, but I am not sure we took it all out but I think we took a substantial portion. We did get the bowels improved. This episode started a few days before hospitalization, progressed to total obstruction. He was not passing any gas when he came here and he was vomiting. He is a robust gentleman and always has been a robust gentleman. A nasogastric tube was attempted twice, but it just seemed to make him gag and he was awful raw upstairs when this was being attempted. He is settled. He is passing gas. He is 90% better. He can push on his left upper quadrant without hurting now. He has a bunch of small wounds on his abdominal wall. I do not feel or see any absolute hernia signs. He is concerned about the potassium. He was low on potassium but usually he does take a p.o. potassium supplement. He has been on anticoagulation at home also. He is concerned about his Lovenox shot so seems very appropriate at the moment. He has had DVTs in the past. IMPRESSION: We will add potassium into his IV. We will continue his IV. He has not had much urine output so far. I think he is just about caught up from his bowel obstruction. His bowel obstruction seems to be resolving. Tomorrow is the first, we will see if x-ray can do an upper GI with small bowel followthrough. They may or may not be able to. If not, they can do it . We have added potassium, we will continue the Lovenox. We will start him on clear liquids. It looks like he is getting through this, the question is whether this is something that is happening often enough we might consider intervention or else, if this is only happening every 5 to 10 years, then we do not really need intervention at this moment. We will see what the small bowel followthrough brings.
[2024-03-12] MEDS ORDERED: NON-FORMULARY ITEM (Esomeprazole Magnesium [Esomeprazole Magnesium] 40 MG Capsule.Dr) PO SCH (22:00)
[2024-03-12] MEDS ORDERED: ZYLOPRIM 300 MG PO SCH (22:00)
[2024-03-12] MEDS ORDERED: ZOCOR 20MG PO SCH (22:00)
[2024-03-12] MEDS ORDERED: Protonix 40MG Tablet PO SCH (22:00)
[2024-03-12] MEDS ORDERED: NON-FORMULARY ITEM (Fexofenadine Hcl [Allegra Allergy] 180 MG Tablet) PO SCH (22:00)
[2024-03-12] MEDS ORDERED: CLARITIN 10 MG PO SCH (22:00)
[2024-03-12] MEDS ORDERED: NON-FORMULARY ITEM (Rosuvastatin Calcium [Crestor] 20 MG Tablet) PO SCH (22:00)
[2024-03-19] MEDS ORDERED: VITAMIN D2 PO SCH (10:00)
== END 2024-03-12 15:39 | disposition home or self-care (01) ==
LOC: MED SURG 11:58
PROVIDERS: ADMIT Internal Medicine; ATTEND Internal Medicine
DX: K56.600 Partial intestinal obstruction, unspecified as to cause (principal); I10 Essential (primary) hypertension; E87.1 Hypo-osmolality and hyponatremia; E87.6 Hypokalemia; E78.5 Hyperlipidemia, unspecified; E66.9 Obesity, unspecified; I82.890 Acute embolism and thrombosis of other specified veins; Z79.899 Other long term (current) drug therapy; Z86.718 Personal history of other venous thrombosis and embolism; Z79.01 Long term (current) use of anticoagulants
CPT/HCPCS: 36415; 80048; 80053; 83735; 85025; 85027; 93268; G0378; G0379; Q3014; J1171; J1650; A9270-GY

== ENCOUNTER 2024-10-06 16:51 | Observation (INO) | payer OTHER ==
[2024-10-06 18:00] LABS: BASOPHIL % 0.7 % (0.2-1.2); Basophil (Absolute #) 0.07 x10^3/uL (0.01-0.08); Eosinophil (Absolute #) 0.43 x10^3/uL (0.04-0.54); Hematocrit 40.0 % (40.1-51.0); Hemoglobin 13.4 g/dL (13.7-17.5); IMMATURE GRAN # 0.05 x10^3u/L (0.001-0.031); IMMATURE GRAN % 0.5 % (0.001-0.429); Lymphocyte (Absolute #) 2.45 x10^3/uL (1.32-3.57); Mean Corpuscular Hemoglobin 30.1 pg (25.7-32.2); Mean Corpuscular Hgb Concent. 33.5 g/dL (32.3-36.5); Monocyte (Absolute #) 0.84 x10^3/uL (0.30-0.82); NUCLEATED RBC # 0.00 x10^3u/L (0.00-0.012); NUCLEATED RBC % 0.0 % (0.00-0.2); Platelet Count 258 x10^3/uL (163-337); Red Blood Count 4.45 x10^6/uL (4.63-6.08); White Blood Count 9.7 x10^3/uL (4.23-9.07)
--- NOTE | 2024-10-06 18:00 | ERPHSYRPT ---
- History of Present Illness Time Seen by Provider: 10/06/24 17:10 Source: patient Exam Limitations: no limitations Patient Subjective Stated Complaint: patient stated that he has been lightheaded since sunday, patient stated [facility] and had high blood pressure of 150/100, patient also had an ekg that was read by dr. thornton and the reading per patient was abnormal Triage Nursing Assessment: patient presents to ed with complaints of high blood pressure, patient's blood pressure at this time 148/72, all other vitals wnl, skin n/w/d Physician History: Patient is a 58-year-old male history of IgA nephropathy and hypokalemia presents to our ED for evaluation of feeling unwell. Patient states I feel "blah". No pain. Patient was seen by another provider. Outpatient labs were ordered. However the CBC is available but the chemistry is not. We will order fresh and current labs here in our ED. Patient was also concerned regarding his blood pressure. Patient states in the clinic it was 150/100. Patient is known to have a history of high blood pressure and high cholesterol. Patient currently medicated for both. The patient adds that he has a history of low potassium. He is on 20 mEq of potassium twice daily. Patient has a history of IgA nephropathy. He used to see a movie writer but has not done so in 20 years. Patient adds that he has a history of abnormal parathyroid hormone. We will order a ionized calcium to assess unbound/readily available calcium levels. Patient denies pain. No chest pain or shortness of breath. No nausea vomiting or diaphoresis. No abdominal pain. No generalized weakness. Patient voices no other complaints or concerns at this time. Portions of this note were created with voice recognition technology. There may be grammatical, spelling, punctuation or sound alike errors Timing/Duration: today Severity: moderate Modifying Factors: Improves With: nothing Associated Symptoms: denies symptoms Allergies/Adverse Reactions: bee venom protein (honey bee) Allergy (Severe, Verified 10/06/24 17:06) Swelling of Face throat seeling COVID-19 vaccine, mRNA, [id number], L Allergy (Severe, Verified 10/06/24 17:06) Difficulty Breathing 1st vaccine of Pfizer med / instant dizzy,confusion, itching and HTN. Sent to E.R. Instructed to never take again. Iodinated Contrast Media Allergy (Intermediate, Verified 10/06/24 17:06) Shortness of Breath itching Penicillins Allergy (Intermediate, Verified 10/06/24 17:06) Rash shellfish derived Allergy (Intermediate, Verified 10/06/24 17:06) Hives promethazine HCl [From Phenergan] Adverse Reaction (Severe, Verified 10/06/24 17:06) increased heart rate Home Medications: Allopurinol 300 mg [Zyloprim 300 mg] 300 mg PO HS 05/11/15 [History] Ergocalciferol (Vitamin D2) [Vitamin D] 50,000 unit PO WEEKLY 05/04/20 [History] Ropinirole HCl [Requip] 2 mg PO HS 05/04/20 [History] Rosuvastatin Calcium [Crestor] 20 mg PO HS 05/04/20 [History] Tamsulosin HCl 0.4 mg [Flomax 0.4 MG] 0.4 mg PO HS 05/04/20 [History] Fexofenadine HCl [Debi Allergy] 180 mg PO HS 10/24/21 [History] Bupropion HCl Xl 150 mg [Wellbutrin XL 150 MG] 300 mg PO HS 08/03/22 [History] Losartan Potassium 50 mg PO HS 08/31/22 [History] Potassium Chloride 20 meq PO DAILY 05/17/23 [History] EPINEPHrine [Epipen 2-Prince] 0.3 mg IM UD 02/04/24 [History] Finasteride 5 mg [Proscar 5 MG] 5 mg PO DAILY 02/04/24 [History] Esomeprazole Magnesium 40 mg PO HS 03/10/24 [History] Multivitamin 1 each PO DAILY 03/10/24 [History] Potassium Chloride [Klor-Con 10] 10 meq PO QHS 03/10/24 [History] Pregabalin [Lyrica 100Mg] 100 mg PO BID 03/10/24 [History] Triamterene/Hydrochlorothiazid [Triamterene-Hctz 37.5-25 mg Tb] 1 each PO DAILY 03/10/24 [History] Hx Tetanus, Diphtheria Vaccination/Date Given: No Hx Influenza Vaccination/Date Given: Yes Hx Pneumococcal Vaccination/Date Given: No Travel Risk - International Travel Have you traveled outside of the country in past 3 weeks: No - Emerging Infectious Disease Are you exhibiting symptoms associated with any current EIDs: No Symptoms: Abdominal Pain - Review of Systems All Other Systems: Reviewed and Negative - Past Medical History Pertinent Past Medical History: Yes Neurological History: No Pertinent History ENT History: No Pertinent History Cardiac History: High Cholesterol, Hypertension Respiratory History: No Pertinent History Endocrine Medical History: No Pertinent History Musculoskeletal History: Osteoarthritis GI Medical History: Hernia, Other, GERD History: Other Psycho-Social History: Depression Male Reproductive Disorders: No Pertinent History Other Medical History: PSH: HERNIA, L KNEE SURGERY, 2 WRIST SURGERIES (ORIF L WRIST), PARATHYROID GLAND REMOVED, LITHOTRIPSY FOR KIDNEY STONES - Past Surgical History Past Surgical History: Yes Neuro Surgical History: No Pertinent History Cardiac: No Pertinent History Respiratory: No Pertinent History Gastrointestinal: No Pertinent History, Hernia Repair Genitourinary: Other Musculoskeletal: No Pertinent History, Orthopedic Surgery Male Surgical History: No Pertinent History Other Surgical History: Stents for kidney stones, parathyroidectomy x1 in 2018. laproscopic interolosis, R knee, left wrist x2 left ankle Significant Family History: other (Father with Colon cacner dx 62) - Social History Smoking Status: Never smoker Exposure to second hand smoke: No Drug Use: none - Social Determinants of Health Will the patient participate in the screening: Yes Do you worry about a steady place to live?: No Do you have any problems with any of the following?: No known problems In the past 12 months,have you had to go without utilities?: No Transportation Issues: No Has anyone in your support network made you feel unsafe?: No Have you or anyone in your house had to go w/o enough food: No - Nursing Vital Signs Nursing Vital Signs: Initial Vital Signs Temperature 97 F 10/06/24 16:52 Pulse Rate 75 10/06/24 16:52 Respiratory Rate 16 10/06/24 16:52 Blood Pressure 148/72 10/06/24 16:52 O2 Sat by Pulse Oximetry 99 10/06/24 16:52 Pain Scale Pain Intensity 0 - Physical Exam General Appearance: no apparent distress, alert Eye Exam: PERRL/EOMI, eyes nml inspection Ears, Nose, Throat Exam: normal ENT inspection, moist mucous membranes Neck Exam: normal inspection, full range of motion Respiratory Exam: normal breath sounds, lungs clear, No respiratory distress Cardiovascular Exam: regular rate/rhythm, normal heart sounds, normal peripheral pulses Gastrointestinal/Abdomen Exam: soft, normal bowel sounds, No tenderness, No mass Back Exam: normal inspection, normal range of motion, No CVA tenderness, No vertebral tenderness Extremity Exam: normal inspection, normal range of motion, pelvis stable Neurologic Exam: alert, oriented x 3, cooperative, normal mood/affect, nml station & gait, sensation nml, No motor deficits Skin Exam: normal color, warm, dry, No rash Lymphatic Exam: No adenopathy SpO2 Interpretation: normal SpO2: 95 O2 Delivery: Room Air - Course Nursing assessment & vital signs reviewed: Yes Ordered Tests: Active Orders 24 hr Category Date Time Status Group Therapist STAT Care 10/06/24 17:48 Active EKG-ER Only STAT Care 10/06/24 17:45 Active IV Insertion STAT Care 10/06/24 17:45 Active Pulse Oximetry (ED) STAT Care 10/06/24 17:48 Active Telemetry q4h Care 10/06/24 19:27 Active CBC W DIFF Stat Lab 10/06/24 17:55 Completed CMP Stat Lab 10/06/24 17:55 Completed Calcium, Ionized Stat Lab 10/06/24 17:59 Completed MAGNESIUM Stat Lab 10/06/24 17:55 Completed TROPONIN Q4H Lab 10/06/24 17:55 Completed TROPONIN Q4H Lab 10/06/24 21:45 Ordered TROPONIN Q4H Lab 10/07/24 01:45 Ordered TSH [TSH, 3RD Generation] Stat Lab 10/06/24 17:55 Completed UA W/RFX UR CULTURE Stat Lab 10/06/24 18:09 Completed Transfer Order Routine Transfer 10/06/24 Ordered Medication Summary Generic Name Dose Route Start Last Admin Trade Name Freq PRN Reason Stop Dose Admin Sodium Chloride 1,000 mls @ 100 mls/hr 10/06/24 17:45 10/06/24 18:03 Sodium Chloride 0.9% 1000 Ml IV 11/05/24 17:44 100 mls/hr .Q10H ROSI Administration Potassium Chloride 20 meq in 100 mls @ 50 mls/hr 10/06/24 19:30 Potassium Chloride 20 Meq In Water 100ml IV 10/06/24 23:29 Q2H ROSI Magnesium Sulfate/Dextrose 100 mls @ 100 mls/hr 10/06/24 19:30 Magnesium 1 Gm / 100 Ml D5w IV 10/06/24 21:29 Q1H ROSI Discontinued Medications Generic Name Dose Route Start Last Admin Trade Name Sanket PRN Reason Stop Dose Admin Potassium Chloride 40 meq 10/06/24 19:28 Potassium Chloride Tab 10 Meq Tab PO 10/06/24 19:29 STAT ONE Lab/Rad Data: Laboratory Result Diagrams 10/06/24 17:55 10/06/24 17:55 Laboratory Results 10/06/24 10/06/24 10/06/24 Range/Units 18:09 17:59 17:55 WBC (4.23-9.07) x10^3/uL RBC (4.63-6.08) x10^6/uL Hgb (13.7-17.5) g/dL Hct (40.1-51.0) % MCV (79.0-92.2) fL MCH (25.7-32.2) pg MCHC (32.3-36.5) g/dL RDW (11.6-14.4) % Plt Count (163-337) x10^3/uL MPV (9.4-12.4) fL Gran % (34.0-67.9) % Immature Gran % (Auto) (0.001-0.429) % Nucleat RBC Rel Count (0.00-0.2) % Eos # (Auto) (0.04-0.54) x10^3/uL Immature Gran # (Auto) (0.001-0.031) x10^3u/L Absolute Lymphs (auto) (1.32-3.57) x10^3/uL Absolute Monos (auto) (0.30-0.82) x10^3/uL Absolute Nucleated RBC (0.00-0.012) x10^3u/L Lymphocytes % (21.8-53.1) % Monocytes % (5.3-12.2) % Eosinophils % (0.8-7.0) % Basophils % (0.2-1.2) % Absolute Granulocytes (1.78-5.38) x10^3/uL Basophils # (0.01-0.08) x10^3/uL Ionized Calcium 1.20 (1.12-1.32) mmol/L Sodium (135-145) mmol/L Potassium (3.5-5.1) mmol/L Chloride (98-107) mmol/L Carbon Dioxide (22-30) mmol/L Anion Gap (5-15) MEQ/L BUN (9-20) mg/dL Creatinine (0.66-1.25) mg/dL Estimated GFR ML/MIN Glucose (74-106) mg/dL Calcium (8.4-10.2) mg/dL Magnesium (1.6-2.3) mg/dL Total Bilirubin (0.2-1.3) mg/dL AST (17-59) U/L ALT (0-50) U/L Alkaline Phosphatase (38-126) U/L Troponin I (0.000-0.033) ng/mL Serum Total Protein (6.3-8.2) g/dL Albumin (3.5-5.0) g/dL TSH 3rd Generation 1.307 (0.470-4.680) mIU/L Urine Color Yellow (Yellow) Urine Appearance Clear (Clear) Urine pH 5.5 (4.6-8.0) Ur Specific [place] 1.010 (1.005-1.030) Urine Protein Negative (Negative) Urine Glucose (UA) Negative (Negative) mg/dL Urine Ketones Negative (Negative) Urine Blood Negative (Negative) Urine Nitrite Negative (Negative) Urine Bilirubin Negative (Negative) Urine Urobilinogen 0.2 (0.2) mg/dL Ur Leukocyte Esterase Negative (Negative) U Hyaline Cast (Auto) NONE SEEN (0-2) /LPF Urine Microscopic RBC 0-2 (0-5) /HPF Urine Microscopic WBC 0-2 (0-5) /HPF Ur Epithelial Cells None Seen (None Seen) /HPF Urine Bacteria None Seen (None Seen) /HPF Urine Culture Reflexed NO (NO) 10/06/24 10/06/24 Range/Units 17:55 17:55 WBC 9.7 H (4.23-9.07) x10^3/uL RBC 4.45 L (4.63-6.08) x10^6/uL Hgb 13.4 L (13.7-17.5) g/dL Hct 40.0 L (40.1-51.0) % MCV 89.9 (79.0-92.2) fL MCH 30.1 (25.7-32.2) pg MCHC 33.5 (32.3-36.5) g/dL RDW 13.2 (11.6-14.4) % Plt Count 258 (163-337) x10^3/uL MPV 9.6 (9.4-12.4) fL Gran % 60.6 (34.0-67.9) % Immature Gran % (Auto) 0.5 H (0.001-0.429) % Nucleat RBC Rel Count 0.0 (0.00-0.2) % Eos # (Auto) 0.43 (0.04-0.54) x10^3/uL Immature Gran # (Auto) 0.05 H (0.001-0.031) x10^3u/L Absolute Lymphs (auto) 2.45 (1.32-3.57) x10^3/uL Absolute Monos (auto) 0.84 H (0.30-0.82) x10^3/uL Absolute Nucleated RBC 0.00 (0.00-0.012) x10^3u/L Lymphocytes % 25.2 (21.8-53.1) % Monocytes % 8.6 (5.3-12.2) % Eosinophils % 4.4 (0.8-7.0) % Basophils % 0.7 (0.2-1.2) % Absolute Granulocytes 5.89 H (1.78-5.38) x10^3/uL Basophils # 0.07 (0.01-0.08) x10^3/uL Ionized Calcium (1.12-1.32) mmol/L Sodium 137 (135-145) mmol/L Potassium 3.1 L (3.5-5.1) mmol/L Chloride 104 (98-107) mmol/L Carbon Dioxide 24 (22-30) mmol/L Anion Gap 11.0 (5-15) MEQ/L BUN 13 (9-20) mg/dL Creatinine 0.97 (0.66-1.25) mg/dL Estimated GFR 91.1 ML/MIN Glucose 126 H (74-106) mg/dL Calcium 9.4 (8.4-10.2) mg/dL Magnesium 1.8 (1.6-2.3) mg/dL Total Bilirubin 0.30 (0.2-1.3) mg/dL AST 24 (17-59) U/L ALT 26 (0-50) U/L Alkaline Phosphatase 94 (38-126) U/L Troponin I < 0.012 (0.000-0.033) ng/mL Serum Total Protein 6.7 (6.3-8.2) g/dL Albumin 4.0 (3.5-5.0) g/dL TSH 3rd Generation (0.470-4.680) mIU/L Urine Color (Yellow) Urine Appearance (Clear) Urine pH (4.6-8.0) Ur Specific [place] (1.005-1.030) Urine Protein (Negative) Urine Glucose (UA) (Negative) mg/dL Urine Ketones (Negative) Urine Blood (Negative) Urine Nitrite (Negative) Urine Bilirubin (Negative) Urine Urobilinogen (0.2) mg/dL Ur Leukocyte Esterase (Negative) U Hyaline Cast (Auto) (0-2) /LPF Urine Microscopic RBC (0-5) /HPF Urine Microscopic WBC (0-5) /HPF Ur Epithelial Cells (None Seen) /HPF Urine Bacteria (None Seen) /HPF Urine Culture Reflexed (NO) - Progress Progress: improved Progress Note: Patient is a 58-year-old male history of IgA nephropathy and hypokalemia on supplemental potassium, 20 mEq twice a day presents to our ED for evaluation of fatigue and generalized weakness. Physical exam unremarkable. Workup reveals a potassium of 3.1. Magnesium 1.8. Patient received K rider and 2 g of magnesium. Patient additionally received potassium chloride orally. It is unclear why patient is hypokalemic and spite of the 40 mill equivalent potassium daily. EKG reveals PVC which may be secondary to electrolyte abnormality. Patient will be admitted for further evaluation and treatment of symptomatic hypokalemia. Case discussed with hospitalist Dr. Paz who accepts admission to observation. Plan of care discussed with patient. He agrees to admission at [facility] for further evaluation and treatment. Dr. Daniel accepts admission at 7:42 PM. Portions of this note were created with voice recognition technology. There may be grammatical, spelling, punctuation or sound alike errors Complexity of problem addressed is moderate acute complicated. No critical care time. Complexity of data reviewed and analyzed as extensive. Test ordered chest reviewed results analyzed and correlated clinically with history and physical exam. Risk of complication or risk of morbidity/mortality of patient management is high. Patient requires hospitalization for further evaluation and treatment. Vital stable. Time spent admit patient approximately 15 minutes. Plan of care established for shared decision making. No social determinants of health present to be follow-up. Portions of this note were created with voice recognition technology. There may be grammatical, spelling, punctuation or sound alike errors 10/06/24 19:44 Counseled pt/family regarding: lab results, diagnosis, need for follow-up, rad results - Departure Departure Disposition: Observation Clinical Impression: Symptomatic hypokalemia, Premature ventricular contraction on electrocardiogram, Fatigue Condition: Stable Critical Care Time: No Referrals: ELTON MÉNDEZ [Primary Care Provider, [facility]] - Follow up/PCP as directed
[2024-10-06 18:26] LABS: Calcium 9.4 mg/dL (8.4-10.2); Carbon Dioxide 24 mmol/L (22-30); Creatinine 1 0.97 mg/dL (0.66-1.25); EST GLOMERULAR FILTRATION RATE 91.1 ML/MIN; Glucose 126 mg/dL (74-106); Potassium 3.1 mmol/L (3.5-5.1); SGOT/AST 24 U/L (17-59); SGPT/ALT 26 U/L (0-50); TROPONIN < 0.012 ng/mL (0.000-0.033); Total Protein 6.7 g/dL (6.3-8.2)
[2024-10-06 18:48] LABS: Glucose, Urine Negative (Negative); Protein,Urine Dip Negative (Negative); RBC 0-2 /HPF (0-5); WBC 0-2 /HPF (0-5)
[2024-10-06] MEDS ORDERED: POTASSIUM CHLORIDE 20 mEq IN WATER 100ML 100 ML IV ONE ×2 (20:03→21:57)
[2024-10-06] MEDS ORDERED: Magnesium 1 Gm / 100 Ml D5W*** 100 ML IV ONE ×2 (20:03→21:57)
[2024-10-06] MEDS ORDERED: Klor Con ONE (20:03)
[2024-10-06] MEDS: Klor Con PO ONE (20:06)
[2024-10-06] MEDS: POTASSIUM CHLORIDE 20 mEq IN WATER 100ML 20 MEQ/100 ML BAG IV SCH (20:07)
[2024-10-06] MEDS: Magnesium 1 Gm / 100 Ml D5W*** 100 ML IV SCH (20:09)
[2024-10-06] MEDS ORDERED: NORCO 5/325 MG PO PRN (21:20)
[2024-10-06] MEDS ORDERED: TYLENOL 325 MG PO PRN (21:28)
[2024-10-06] MEDS ORDERED: Zofran 4 MG/2 ML VIAL IV PRN (21:28)
[2024-10-06] MEDS ORDERED: EPINEPHRINE 0.3 MG/0.3 ML IM SCH (21:30)
--- NOTE | 2024-10-06 21:38 | PCM.HP ---
History of Present Illness - Chief Complaint Chief Complaint: Symptomatic hypokalemia, PVC on EKG Date: 10/06/24 History of Present Illness: Mr.RAMSEY ALFONSO is a 58 year old male with a history of IgA nephropathy, hypokalemia, HTN, parathyroid disease, and hyperlipidemia presented to the ED for evaluation of feeling unwell and generalized weakness. He has been compliant with his oral potassium, and denies diarrhea or vomiting. In the clinic, his BP was 150/100. 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 Patient adds that he has a history of abnormal parathyroid hormone. He denies syncope, palpitations, chest pain or shortness of breath. He has felt light headed. No nausea vomiting, diaphoresis, or abdominal pain. In the ED, the patient was noted to have hypokalemia and ectopy. IV potassium was initiated. - Review of Systems Constitutional: Malaise, Weakness Eyes: No Symptoms Ears, Nose, & Throat: No Symptoms Respiratory: No Symptoms Cardiac: No Symptoms Musculoskeletal: No Symptoms Skin: No Symptoms Neurological: Dizziness, No Focal Weakness, No Gait Changes, No Headache, No Irritability, No Lethargy, No Paralysis Psychological: No Symptoms Endocrine: No Symptoms Hematologic/Lymphatic: No Symptoms Immunological/Allergic: No Symptoms All Other Systems: Reviewed and Negative Medications & Allergies Home Medications: Home Medication List Allopurinol 300 mg [Zyloprim 300 mg] 300 mg PO HS 05/11/15 [History Confirmed 03/10/24] Ergocalciferol (Vitamin D2) [Vitamin D] 50,000 unit PO WEEKLY 05/04/20 [History Confirmed 03/10/24] Ropinirole HCl [Requip] 2 mg PO HS 05/04/20 [History Confirmed 03/10/24] Rosuvastatin Calcium [Crestor] 20 mg PO HS 05/04/20 [History Confirmed 03/10/24] Tamsulosin HCl 0.4 mg [Flomax 0.4 MG] 0.4 mg PO HS 05/04/20 [History Confirmed 03/10/24] Fexofenadine HCl [Debi Allergy] 180 mg PO HS 10/24/21 [History Confirmed 03/10/24] Bupropion HCl Xl 150 mg [Wellbutrin XL 150 MG] 300 mg PO HS 08/03/22 [History Confirmed 03/10/24] Losartan Potassium 50 mg PO HS 08/31/22 [History Confirmed 03/10/24] Potassium Chloride 20 meq PO DAILY 05/17/23 [History Confirmed 03/10/24] EPINEPHrine [Epipen 2-Prince] 0.3 mg IM UD 02/04/24 [History Confirmed 03/10/24] Finasteride 5 mg [Proscar 5 MG] 5 mg PO DAILY 02/04/24 [History Confirmed 03/10/24] Hydrocodone/Acetaminophen [Hydrocodone-Acetamin 5-325 mg] 1 - 2 tab PO Q4HPRN PRN #20 tablet MDD 6 03/03/24 [Rx Confirmed 03/10/24] Apixaban [Eliquis] 5 mg PO BID #14 tablet 03/07/24 [Rx Confirmed 03/10/24] Esomeprazole Magnesium 40 mg PO HS 03/10/24 [History Confirmed 03/10/24] Multivitamin 1 each PO DAILY 03/10/24 [History Confirmed 03/10/24] Potassium Chloride [Klor-Con 10] 10 meq PO QHS 03/10/24 [History Confirmed 03/10/24] Pregabalin [Lyrica 100Mg] 100 mg PO BID 03/10/24 [History Confirmed 03/10/24] Triamterene/Hydrochlorothiazid [Triamterene-Hctz 37.5-25 mg Tb] 1 each PO DAILY 03/10/24 [History Confirmed 03/10/24] Allergies/Adverse Reactions: Allergies Allergy/AdvReac Type Severity Reaction Status Date / Time bee venom protein (honey bee) Allergy Severe Swelling Verified 10/06/24 17:06 of Face COVID-19 vaccine, mRNA, Allergy Severe Difficulty Verified 10/06/24 17:06 [id number], L Breathing Iodinated Contrast Media Allergy Intermediate Shortness Verified 10/06/24 17:06 of Breath Penicillins Allergy Intermediate Rash Verified 10/06/24 17:06 shellfish derived Allergy Intermediate Hives Verified 10/06/24 17:06 promethazine HCl AdvReac Severe Verified 10/06/24 17:06 [From Phenergan] - Past Medical History Past Medical History: Yes Neurological History: No Pertinent History ENT History: No Pertinent History Cardiac History: High Cholesterol, Hypertension Respiratory History: No Pertinent History Endocrine Medical History: No Pertinent History Musculoskelatal History: Fractures, Osteoarthritis GI Medical History: Hernia, Other, GERD History: Other Pyscho-Social History: Depression Male Reproductive Disorders: No Pertinent History Comment: PSH: HERNIA, L KNEE SURGERY, 2 WRIST SURGERIES (ORIF L WRIST), PARATHYROID GLAND REMOVED, LITHOTRIPSY FOR KIDNEY STONES - Past Surgical History Past Surgical History: Yes Neuro Surgical History: No Pertinent History Cardiac History: No Pertinent History Respiratory Surgery: No Pertinent History GI Surgical History: No Pertinent History, Hernia Repair Genitourinary Surgical Hx: Other Musculskeletal Surgical Hx: No Pertinent History, Orthopedic Surgery Male Surgical History: No Pertinent History Other Surgical History: Stents for kidney stones, parathyroidectomy x1 in 2018. laproscopic interolosis, R knee, left wrist x2 left ankle Significant Family History: other (Father with Colon cacner dx 62) - Social History Smoking Status: Never smoker Exposure to second hand smoke: No Alcohol: Rarely Drug Use: none - Social Determinants of Health Will the patient participate in the screening: Yes Do you worry about a steady place to live?: No Do you have any problems with any of the following?: No known problems In the past 12 months,have you had to go without utilities?: No Have you or anyone in your house had to go without enough: No Transportation Issues: No Has anyone in your support network made you feel unsafe?: No Does the patient want assistance with any of the above?: No - Physical Exam Vital Signs: Vital Signs - 24 hr Temp Pulse Resp BP BP Pulse Ox 10/06/24 21:28 95 10/06/24 20:50 98.1 F 60 156/95 95 10/06/24 20:00 154/103 10/06/24 19:50 95 10/06/24 19:31 76 16 139/76 96 10/06/24 19:01 82 16 137/105 90 L 10/06/24 18:30 81 17 128/95 94 L 10/06/24 18:01 86 137/94 96 10/06/24 17:53 95 10/06/24 17:31 84 19 146/94 95 10/06/24 17:01 79 23 148/72 95 10/06/24 16:52 97 F 75 16 148/72 99 General Appearance: no apparent distress, alert Neurologic Exam: alert, oriented x 3, cooperative, inspector and mender II-XII nml as tested, normal mood/affect, nml cerebellar function Eye Exam: PERRL/EOMI, eyes nml inspection, No scleral icterus, No pale conjunctivae, No photophobia Ears, Nose, Throat Exam: normal ENT inspection Neck Exam: normal inspection, non-tender, supple, full range of motion, No meningismus Respiratory Exam: normal breath sounds, lungs clear, airway intact, No chest tenderness, No respiratory distress, No diminished breath sounds Cardiovascular Exam: regular rate/rhythm, normal heart sounds, No murmur, No friction rub, No gallop Gastrointestinal/Abdomen Exam: soft, normal bowel sounds, No tenderness, No distention Back Exam: normal range of motion Extremity Exam: normal inspection, normal range of motion, No pedal edema Skin Exam: normal color Results - Labs Lab/Micro Results: Lab Results-Last 24 Hours 10/06/24 10/06/24 10/06/24 Range/Units 17:55 17:55 17:55 WBC 9.7 H (4.23-9.07) x10^3/uL RBC 4.45 L (4.63-6.08) x10^6/uL Hgb 13.4 L (13.7-17.5) g/dL Hct 40.0 L (40.1-51.0) % MCV 89.9 (79.0-92.2) fL MCH 30.1 (25.7-32.2) pg MCHC 33.5 (32.3-36.5) g/dL RDW 13.2 (11.6-14.4) % Plt Count 258 (163-337) x10^3/uL MPV 9.6 (9.4-12.4) fL Gran % 60.6 (34.0-67.9) % Immature Gran % (Auto) 0.5 H (0.001-0.429) % Nucleat RBC Rel Count 0.0 (0.00-0.2) % Eos # (Auto) 0.43 (0.04-0.54) x10^3/uL Immature Gran # (Auto) 0.05 H (0.001-0.031) x10^3u/L Absolute Lymphs (auto) 2.45 (1.32-3.57) x10^3/uL Absolute Monos (auto) 0.84 H (0.30-0.82) x10^3/uL Absolute Nucleated RBC 0.00 (0.00-0.012) x10^3u/L Lymphocytes % 25.2 (21.8-53.1) % Monocytes % 8.6 (5.3-12.2) % Eosinophils % 4.4 (0.8-7.0) % Basophils % 0.7 (0.2-1.2) % Absolute Granulocytes 5.89 H (1.78-5.38) x10^3/uL Basophils # 0.07 (0.01-0.08) x10^3/uL Ionized Calcium (1.12-1.32) mmol/L Sodium 137 (135-145) mmol/L Potassium 3.1 L (3.5-5.1) mmol/L Chloride 104 (98-107) mmol/L Carbon Dioxide 24 (22-30) mmol/L Anion Gap 11.0 (5-15) MEQ/L BUN 13 (9-20) mg/dL Creatinine 0.97 (0.66-1.25) mg/dL Estimated GFR 91.1 ML/MIN Glucose 126 H (74-106) mg/dL Calcium 9.4 (8.4-10.2) mg/dL Magnesium 1.8 (1.6-2.3) mg/dL Total Bilirubin 0.30 (0.2-1.3) mg/dL AST 24 (17-59) U/L ALT 26 (0-50) U/L Alkaline Phosphatase 94 (38-126) U/L Troponin I < 0.012 (0.000-0.033) ng/mL Serum Total Protein 6.7 (6.3-8.2) g/dL Albumin 4.0 (3.5-5.0) g/dL TSH 3rd Generation 1.307 (0.470-4.680) mIU/L Urine Color (Yellow) Urine Appearance (Clear) Urine pH (4.6-8.0) Ur Specific Bruni (1.005-1.030) Urine Protein (Negative) Urine Glucose (UA) (Negative) mg/dL Urine Ketones (Negative) Urine Blood (Negative) Urine Nitrite (Negative) Urine Bilirubin (Negative) Urine Urobilinogen (0.2) mg/dL Ur Leukocyte Esterase (Negative) U Hyaline Cast (Auto) (0-2) /LPF Urine Microscopic RBC (0-5) /HPF Urine Microscopic WBC (0-5) /HPF Ur Epithelial Cells (None Seen) /HPF Urine Bacteria (None Seen) /HPF Urine Culture Reflexed (NO) 10/06/24 10/06/24 Range/Units 17:59 18:09 WBC (4.23-9.07) x10^3/uL RBC (4.63-6.08) x10^6/uL Hgb (13.7-17.5) g/dL Hct (40.1-51.0) % MCV (79.0-92.2) fL MCH (25.7-32.2) pg MCHC (32.3-36.5) g/dL RDW (11.6-14.4) % Plt Count (163-337) x10^3/uL MPV (9.4-12.4) fL Gran % (34.0-67.9) % Immature Gran % (Auto) (0.001-0.429) % Nucleat RBC Rel Count (0.00-0.2) % Eos # (Auto) (0.04-0.54) x10^3/uL Immature Gran # (Auto) (0.001-0.031) x10^3u/L Absolute Lymphs (auto) (1.32-3.57) x10^3/uL Absolute Monos (auto) (0.30-0.82) x10^3/uL Absolute Nucleated RBC (0.00-0.012) x10^3u/L Lymphocytes % (21.8-53.1) % Monocytes % (5.3-12.2) % Eosinophils % (0.8-7.0) % Basophils % (0.2-1.2) % Absolute Granulocytes (1.78-5.38) x10^3/uL Basophils # (0.01-0.08) x10^3/uL Ionized Calcium 1.20 (1.12-1.32) mmol/L Sodium (135-145) mmol/L Potassium (3.5-5.1) mmol/L Chloride (98-107) mmol/L Carbon Dioxide (22-30) mmol/L Anion Gap (5-15) MEQ/L BUN (9-20) mg/dL Creatinine (0.66-1.25) mg/dL Estimated GFR ML/MIN Glucose (74-106) mg/dL Calcium (8.4-10.2) mg/dL Magnesium (1.6-2.3) mg/dL Total Bilirubin (0.2-1.3) mg/dL AST (17-59) U/L ALT (0-50) U/L Alkaline Phosphatase (38-126) U/L Troponin I (0.000-0.033) ng/mL Serum Total Protein (6.3-8.2) g/dL Albumin (3.5-5.0) g/dL TSH 3rd Generation (0.470-4.680) mIU/L Urine Color Yellow (Yellow) Urine Appearance Clear (Clear) Urine pH 5.5 (4.6-8.0) Ur Specific Bruni 1.010 (1.005-1.030) Urine Protein Negative (Negative) Urine Glucose (UA) Negative (Negative) mg/dL Urine Ketones Negative (Negative) Urine Blood Negative (Negative) Urine Nitrite Negative (Negative) Urine Bilirubin Negative (Negative) Urine Urobilinogen 0.2 (0.2) mg/dL Ur Leukocyte Esterase Negative (Negative) U Hyaline Cast (Auto) NONE SEEN (0-2) /LPF Urine Microscopic RBC 0-2 (0-5) /HPF Urine Microscopic WBC 0-2 (0-5) /HPF Ur Epithelial Cells None Seen (None Seen) /HPF Urine Bacteria None Seen (None Seen) /HPF Urine Culture Reflexed NO (NO) - Other Procedures and Tests Respiratory Therapy 10/06/24 21:31 EKG REPEAT IN AM Assessment/Plan (1) Hypokalemia Current Visit: No Status: Resolved Assessment & Plan: Replete K. Monitor on tele. Code(s): E87.6 - HYPOKALEMIA (2) PVC (premature ventricular contraction) Current Visit: Yes Status: Acute Assessment & Plan: Likely due to hypokalemia. Repeat EKG in AM. Check TSH. If persistent in AM despite repletion, can obtain ECHO, and consider beta lester. Code(s): I49.3 - VENTRICULAR PREMATURE DEPOLARIZATION (3) IgA nephropathy Current Visit: Yes Status: Acute Assessment & Plan: Has known renal potassium wasting. Does not follow with a hull line crew member. Will consider nephrology consult in morning. Code(s): N02.B9 - OTHER RECURRENT AND PERSISTENT IMMUNOGLOBULIN A NEPHROPATHY (4) Hypertension Current Visit: No Status: Chronic Assessment & Plan: Monitor BP trend on home regimen. Code(s): I10 - ESSENTIAL (PRIMARY) HYPERTENSION Telemedicine Encounter - Telemedicine Encounter Telemedicine Encounter: "The entirety of this encounter was performed via Telemedicine" This visit was performed using real-time audio and video connection between my location and thepatients locationwith the assistance of a surrogateat the patients location. Written or verbal consent was obtained from the patient/guardian to perform this visit usings[employer]not[employer] technology. Any patient questions regarding the telemedicine interaction were answered. Please note that this admission required 48 minutes to complete.
[2024-10-06] MEDS ORDERED: Wellbutrin SR 150 MG ONE (21:54)
[2024-10-06] MEDS ORDERED: Cozaar 50 MG ONE (21:55)
[2024-10-06] MEDS ORDERED: ELIQUIS 2.5 MG TABLET ONE (21:56)
[2024-10-06] MEDS ORDERED: REQUIP 2MG TAB ONE (21:56)
[2024-10-06] MEDS ORDERED: ZOCOR 20MG ONE (21:57)
[2024-10-06] MEDS ORDERED: Protonix 40MG Tablet ONE (21:58)
[2024-10-06] MEDS: LYRICA 100MG PO SCH (22:16)
[2024-10-06] MEDS: Flomax 0.4 MG PO SCH (22:17)
[2024-10-06] MEDS: NON-FORMULARY ITEM (Fexofenadine Hcl [Allegra Allergy] 180 MG Tablet) PO SCH (22:17)
[2024-10-06] MEDS: NON-FORMULARY ITEM (Apixaban [Eliquis] 5 MG Tablet) PO SCH (22:17)
[2024-10-06] MEDS: NON-FORMULARY ITEM (Esomeprazole Magnesium [Esomeprazole Magnesium] 40 MG Capsule.Dr) PO SCH (22:18)
[2024-10-06] MEDS: NON-FORMULARY ITEM (Rosuvastatin Calcium [Crestor] 20 MG Tablet) PO SCH (22:18)
[2024-10-06] MEDS: Klor Con PO SCH (22:18)
[2024-10-06] MEDS: Protonix 40MG Tablet PO SCH (22:19)
[2024-10-06] MEDS: NON-FORMULARY ITEM (Losartan Potassium [Losartan Potassium] 25 MG Tablet) PO SCH (22:19)
[2024-10-06] MEDS: Wellbutrin XL 150 MG PO SCH (22:20)
[2024-10-06] MEDS: NON-FORMULARY ITEM (Ropinirole Hcl [Requip] 1 MG Tablet) PO SCH (22:20)
[2024-10-06] MEDS: ZYLOPRIM 300 MG PO SCH (22:21)
[2024-10-06] MEDS: ZOCOR 20MG PO SCH (22:21)
[2024-10-07 03:48] LABS: BASOPHIL % 0.6 % (0.2-1.2); Basophil (Absolute #) 0.06 x10^3/uL (0.01-0.08); Eosinophil (Absolute #) 0.49 x10^3/uL (0.04-0.54); Hematocrit 44.3 % (40.1-51.0); Hemoglobin 13.9 g/dL (13.7-17.5); IMMATURE GRAN # 0.04 x10^3u/L (0.001-0.031); IMMATURE GRAN % 0.4 % (0.001-0.429); Lymphocyte (Absolute #) 2.55 x10^3/uL (1.32-3.57); Mean Corpuscular Hemoglobin 31.1 pg (25.7-32.2); Mean Corpuscular Hgb Concent. 31.4 g/dL (32.3-36.5); Monocyte (Absolute #) 0.85 x10^3/uL (0.30-0.82); NUCLEATED RBC # 0.00 x10^3u/L (0.00-0.012); NUCLEATED RBC % 0.0 % (0.00-0.2); Platelet Count 211 x10^3/uL (163-337); Red Blood Count 4.47 x10^6/uL (4.63-6.08); White Blood Count 9.4 x10^3/uL (4.23-9.07)
[2024-10-07 03:50] LABS: Calcium 9.1 mg/dL (8.4-10.2); Carbon Dioxide 27.0 mmol/L (22-30); Creatinine 1 0.91 mg/dL (0.66-1.25); EST GLOMERULAR FILTRATION RATE 98.3 ML/MIN; Glucose 108.0 mg/dL (74-106); Potassium 3.7 mmol/L (3.5-5.1)
[2024-10-07 06:21] VITALS: O2SAT 96
[2024-10-07 07:22] VITALS: PULSE 82; RESP 19; TEMP 97.5
[2024-10-07] MEDS ORDERED: MEDICATION INTERVENTION MC SCH (07:30)
[2024-10-07 08:21] LABS: INFLUENZA A NEGATIVE (NEGATIVE); INFLUENZA B NEGATIVE (NEGATIVE); RESPIRATORY SYNCTIAL VIRUS NEGATIVE (NEGATIVE); SARS-CoV-2 Xpert Express NEGATIVE (NEGATIVE)
[2024-10-07] MEDS: THERAGRAN MULTIVITAMIN PO SCH (08:58)
[2024-10-07] MEDS: NON-FORMULARY ITEM PO SCH (08:58)
[2024-10-07] MEDS: Proscar 5 MG PO SCH (08:58)
[2024-10-07] MEDS: Klor Con PO SCH (08:58)
--- NOTE | 2024-10-07 09:13 | PCM.DS ---
Discharge Summary Date of Admission: 10/06/24 20:41 Date of Discharge: 10/07/24 Admitting Physician: TONA LOREDO MD Primary Care Provider: ELTON MÉNDEZ Allergies Allergies bee venom protein (honey bee) Allergy (Severe, Verified 10/06/24 17:06) Swelling of Face throat seeling COVID-19 vaccine, mRNA, [id number], L Allergy (Severe, Verified 10/06/24 17:06) Difficulty Breathing 1st vaccine of Pfizer med / instant dizzy,confusion, itching and HTN. Sent to E.R. Instructed to never take again. Iodinated Contrast Media Allergy (Intermediate, Verified 10/06/24 17:06) Shortness of Breath itching Penicillins Allergy (Intermediate, Verified 10/06/24 17:06) Rash shellfish derived Allergy (Intermediate, Verified 10/06/24 17:06) Hives promethazine HCl [From Phenergan] Adverse Reaction (Severe, Verified 10/06/24 17:06) increased heart rate Hospital Summary - Hospital Course Hospital Course: Mr. Edgar Dominique is a 58-year-old male with a medical history of IgA nephropathy, hypokalemia, hypertension, parathyroid disease, and hyperlipidemia who presented to the ED with complaints of generalized weakness and feeling unwell. He reported adherence to his oral potassium supplementation and denied recent vomiting or diarrhea. In clinic, his blood pressure was noted to be 150/100. 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 He denied syncope, palpitations, chest pain, shortness of breath, nausea, diaphoresis, or abdominal pain, though he did report occasional lightheadedness. In the ED, labs revealed hypokalemia with associated ectopy on EKG, prompting IV potassium replacement. As of 10/07, his potassium has improved to 3.7, with magnesium results pending. He denies ongoing fatigue. Blood pressure remained elevated this morning but responded to early administration of antihypertensive medications. Flu, COVID-19, and RSV tests are negative. EKG today shows no PVCs. If blood pressure remains controlled, the patient may be discharged today with outpatient follow-up arranged with his primary care provider. - Vitals & Intake/Output Vital Signs: Vital Signs Temperature 97.5 F 10/07/24 07:21 Pulse Rate 82 10/07/24 07:21 Respiratory Rate 19 10/07/24 07:21 Blood Pressure 141/102 10/07/24 07:21 O2 Sat by Pulse Oximetry 96 10/07/24 07:21 Intake & Output: Intake & Output 10/04/24 10/05/24 10/06/24 10/07/24 11:59 11:59 11:59 11:59 Intake Total 840 Balance 840 Weight 129.274 kg - Lab Result Diagrams: 10/07/24 03:35 10/07/24 03:35 Lab Results-Last 24 Hrs: Lab Results-Last 24 Hours 10/06/24 10/06/24 10/06/24 Range/Units 17:55 17:55 17:55 WBC 9.7 H (4.23-9.07) x10^3/uL RBC 4.45 L (4.63-6.08) x10^6/uL Hgb 13.4 L (13.7-17.5) g/dL Hct 40.0 L (40.1-51.0) % MCV 89.9 (79.0-92.2) fL MCH 30.1 (25.7-32.2) pg MCHC 33.5 (32.3-36.5) g/dL RDW 13.2 (11.6-14.4) % Plt Count 258 (163-337) x10^3/uL MPV 9.6 (9.4-12.4) fL Gran % 60.6 (34.0-67.9) % Immature Gran % (Auto) 0.5 H (0.001-0.429) % Nucleat RBC Rel Count 0.0 (0.00-0.2) % Eos # (Auto) 0.43 (0.04-0.54) x10^3/uL Immature Gran # (Auto) 0.05 H (0.001-0.031) x10^3u/L Absolute Lymphs (auto) 2.45 (1.32-3.57) x10^3/uL Absolute Monos (auto) 0.84 H (0.30-0.82) x10^3/uL Absolute Nucleated RBC 0.00 (0.00-0.012) x10^3u/L Lymphocytes % 25.2 (21.8-53.1) % Monocytes % 8.6 (5.3-12.2) % Eosinophils % 4.4 (0.8-7.0) % Basophils % 0.7 (0.2-1.2) % Absolute Granulocytes 5.89 H (1.78-5.38) x10^3/uL Basophils # 0.07 (0.01-0.08) x10^3/uL Ionized Calcium (1.12-1.32) mmol/L Sodium 137 (135-145) mmol/L Potassium 3.1 L (3.5-5.1) mmol/L Chloride 104 (98-107) mmol/L Carbon Dioxide 24 (22-30) mmol/L Anion Gap 11.0 (5-15) MEQ/L BUN 13 (9-20) mg/dL Creatinine 0.97 (0.66-1.25) mg/dL Estimated GFR 91.1 ML/MIN Glucose 126 H (74-106) mg/dL Calcium 9.4 (8.4-10.2) mg/dL Magnesium 1.8 (1.6-2.3) mg/dL Total Bilirubin 0.30 (0.2-1.3) mg/dL AST 24 (17-59) U/L ALT 26 (0-50) U/L Alkaline Phosphatase 94 (38-126) U/L Troponin I < 0.012 (0.000-0.033) ng/mL Serum Total Protein 6.7 (6.3-8.2) g/dL Albumin 4.0 (3.5-5.0) g/dL TSH 3rd Generation 1.307 (0.470-4.680) mIU/L Urine Color (Yellow) Urine Appearance (Clear) Urine pH (4.6-8.0) Ur Specific Vale (1.005-1.030) Urine Protein (Negative) Urine Glucose (UA) (Negative) mg/dL Urine Ketones (Negative) Urine Blood (Negative) Urine Nitrite (Negative) Urine Bilirubin (Negative) Urine Urobilinogen (0.2) mg/dL Ur Leukocyte Esterase (Negative) U Hyaline Cast (Auto) (0-2) /LPF Urine Microscopic RBC (0-5) /HPF Urine Microscopic WBC (0-5) /HPF Ur Epithelial Cells (None Seen) /HPF Urine Bacteria (None Seen) /HPF Urine Culture Reflexed (NO) Influenza Type A Ag (NEGATIVE) Influenza Type B Ag (NEGATIVE) RSV (PCR) (NEGATIVE) SARS-CoV-2 (PCR) (NEGATIVE) 10/06/24 10/06/24 10/06/24 Range/Units 17:59 18:09 21:35 WBC (4.23-9.07) x10^3/uL RBC (4.63-6.08) x10^6/uL Hgb (13.7-17.5) g/dL Hct (40.1-51.0) % MCV (79.0-92.2) fL MCH (25.7-32.2) pg MCHC (32.3-36.5) g/dL RDW (11.6-14.4) % Plt Count (163-337) x10^3/uL MPV (9.4-12.4) fL Gran % (34.0-67.9) % Immature Gran % (Auto) (0.001-0.429) % Nucleat RBC Rel Count (0.00-0.2) % Eos # (Auto) (0.04-0.54) x10^3/uL Immature Gran # (Auto) (0.001-0.031) x10^3u/L Absolute Lymphs (auto) (1.32-3.57) x10^3/uL Absolute Monos (auto) (0.30-0.82) x10^3/uL Absolute Nucleated RBC (0.00-0.012) x10^3u/L Lymphocytes % (21.8-53.1) % Monocytes % (5.3-12.2) % Eosinophils % (0.8-7.0) % Basophils % (0.2-1.2) % Absolute Granulocytes (1.78-5.38) x10^3/uL Basophils # (0.01-0.08) x10^3/uL Ionized Calcium 1.20 (1.12-1.32) mmol/L Sodium (135-145) mmol/L Potassium (3.5-5.1) mmol/L Chloride (98-107) mmol/L Carbon Dioxide (22-30) mmol/L Anion Gap (5-15) MEQ/L BUN (9-20) mg/dL Creatinine (0.66-1.25) mg/dL Estimated GFR ML/MIN Glucose (74-106) mg/dL Calcium (8.4-10.2) mg/dL Magnesium (1.6-2.3) mg/dL Total Bilirubin (0.2-1.3) mg/dL AST (17-59) U/L ALT (0-50) U/L Alkaline Phosphatase (38-126) U/L Troponin I < 0.012 (0.000-0.033) ng/mL Serum Total Protein (6.3-8.2) g/dL Albumin (3.5-5.0) g/dL TSH 3rd Generation (0.470-4.680) mIU/L Urine Color Yellow (Yellow) Urine Appearance Clear (Clear) Urine pH 5.5 (4.6-8.0) Ur Specific Vale 1.010 (1.005-1.030) Urine Protein Negative (Negative) Urine Glucose (UA) Negative (Negative) mg/dL Urine Ketones Negative (Negative) Urine Blood Negative (Negative) Urine Nitrite Negative (Negative) Urine Bilirubin Negative (Negative) Urine Urobilinogen 0.2 (0.2) mg/dL Ur Leukocyte Esterase Negative (Negative) U Hyaline Cast (Auto) NONE SEEN (0-2) /LPF Urine Microscopic RBC 0-2 (0-5) /HPF Urine Microscopic WBC 0-2 (0-5) /HPF Ur Epithelial Cells None Seen (None Seen) /HPF Urine Bacteria None Seen (None Seen) /HPF Urine Culture Reflexed NO (NO) Influenza Type A Ag (NEGATIVE) Influenza Type B Ag (NEGATIVE) RSV (PCR) (NEGATIVE) SARS-CoV-2 (PCR) (NEGATIVE) 10/07/24 10/07/24 10/07/24 Range/Units 03:35 03:35 03:35 WBC 9.4 H (4.23-9.07) x10^3/uL RBC 4.47 L (4.63-6.08) x10^6/uL Hgb 13.9 (13.7-17.5) g/dL Hct 44.3 (40.1-51.0) % MCV 99.1 H D (79.0-92.2) fL MCH 31.1 (25.7-32.2) pg MCHC 31.4 L (32.3-36.5) g/dL RDW 13.3 (11.6-14.4) % Plt Count 211 (163-337) x10^3/uL MPV 9.8 (9.4-12.4) fL Gran % 57.5 (34.0-67.9) % Immature Gran % (Auto) 0.4 (0.001-0.429) % Nucleat RBC Rel Count 0.0 (0.00-0.2) % Eos # (Auto) 0.49 (0.04-0.54) x10^3/uL Immature Gran # (Auto) 0.04 H (0.001-0.031) x10^3u/L Absolute Lymphs (auto) 2.55 (1.32-3.57) x10^3/uL Absolute Monos (auto) 0.85 H (0.30-0.82) x10^3/uL Absolute Nucleated RBC 0.00 (0.00-0.012) x10^3u/L Lymphocytes % 27.2 (21.8-53.1) % Monocytes % 9.1 (5.3-12.2) % Eosinophils % 5.2 (0.8-7.0) % Basophils % 0.6 (0.2-1.2) % Absolute Granulocytes 5.39 H (1.78-5.38) x10^3/uL Basophils # 0.06 (0.01-0.08) x10^3/uL Ionized Calcium (1.12-1.32) mmol/L Sodium 137 (135-145) mmol/L Potassium 3.7 (3.5-5.1) mmol/L Chloride 105 (98-107) mmol/L Carbon Dioxide 27 (22-30) mmol/L Anion Gap 8.6 (5-15) MEQ/L BUN 13 (9-20) mg/dL Creatinine 0.91 (0.66-1.25) mg/dL Estimated GFR 98.3 ML/MIN Glucose 108 H (74-106) mg/dL Calcium 9.1 (8.4-10.2) mg/dL Magnesium (1.6-2.3) mg/dL Total Bilirubin (0.2-1.3) mg/dL AST (17-59) U/L ALT (0-50) U/L Alkaline Phosphatase (38-126) U/L Troponin I < 0.012 (0.000-0.033) ng/mL Serum Total Protein (6.3-8.2) g/dL Albumin (3.5-5.0) g/dL TSH 3rd Generation (0.470-4.680) mIU/L Urine Color (Yellow) Urine Appearance (Clear) Urine pH (4.6-8.0) Ur Specific Vale (1.005-1.030) Urine Protein (Negative) Urine Glucose (UA) (Negative) mg/dL Urine Ketones (Negative) Urine Blood (Negative) Urine Nitrite (Negative) Urine Bilirubin (Negative) Urine Urobilinogen (0.2) mg/dL Ur Leukocyte Esterase (Negative) U Hyaline Cast (Auto) (0-2) /LPF Urine Microscopic RBC (0-5) /HPF Urine Microscopic WBC (0-5) /HPF Ur Epithelial Cells (None Seen) /HPF Urine Bacteria (None Seen) /HPF Urine Culture Reflexed (NO) Influenza Type A Ag (NEGATIVE) Influenza Type B Ag (NEGATIVE) RSV (PCR) (NEGATIVE) SARS-CoV-2 (PCR) (NEGATIVE) 10/07/24 Range/Units 07:42 WBC (4.23-9.07) x10^3/uL RBC (4.63-6.08) x10^6/uL Hgb (13.7-17.5) g/dL Hct (40.1-51.0) % MCV (79.0-92.2) fL MCH (25.7-32.2) pg MCHC (32.3-36.5) g/dL RDW (11.6-14.4) % Plt Count (163-337) x10^3/uL MPV (9.4-12.4) fL Gran % (34.0-67.9) % Immature Gran % (Auto) (0.001-0.429) % Nucleat RBC Rel Count (0.00-0.2) % Eos # (Auto) (0.04-0.54) x10^3/uL Immature Gran # (Auto) (0.001-0.031) x10^3u/L Absolute Lymphs (auto) (1.32-3.57) x10^3/uL Absolute Monos (auto) (0.30-0.82) x10^3/uL Absolute Nucleated RBC (0.00-0.012) x10^3u/L Lymphocytes % (21.8-53.1) % Monocytes % (5.3-12.2) % Eosinophils % (0.8-7.0) % Basophils % (0.2-1.2) % Absolute Granulocytes (1.78-5.38) x10^3/uL Basophils # (0.01-0.08) x10^3/uL Ionized Calcium (1.12-1.32) mmol/L Sodium (135-145) mmol/L Potassium (3.5-5.1) mmol/L Chloride (98-107) mmol/L Carbon Dioxide (22-30) mmol/L Anion Gap (5-15) MEQ/L BUN (9-20) mg/dL Creatinine (0.66-1.25) mg/dL Estimated GFR ML/MIN Glucose (74-106) mg/dL Calcium (8.4-10.2) mg/dL Magnesium (1.6-2.3) mg/dL Total Bilirubin (0.2-1.3) mg/dL AST (17-59) U/L ALT (0-50) U/L Alkaline Phosphatase (38-126) U/L Troponin I (0.000-0.033) ng/mL Serum Total Protein (6.3-8.2) g/dL Albumin (3.5-5.0) g/dL TSH 3rd Generation (0.470-4.680) mIU/L Urine Color (Yellow) Urine Appearance (Clear) Urine pH (4.6-8.0) Ur Specific Vale (1.005-1.030) Urine Protein (Negative) Urine Glucose (UA) (Negative) mg/dL Urine Ketones (Negative) Urine Blood (Negative) Urine Nitrite (Negative) Urine Bilirubin (Negative) Urine Urobilinogen (0.2) mg/dL Ur Leukocyte Esterase (Negative) U Hyaline Cast (Auto) (0-2) /LPF Urine Microscopic RBC (0-5) /HPF Urine Microscopic WBC (0-5) /HPF Ur Epithelial Cells (None Seen) /HPF Urine Bacteria (None Seen) /HPF Urine Culture Reflexed (NO) Influenza Type A Ag NEGATIVE (NEGATIVE) Influenza Type B Ag NEGATIVE (NEGATIVE) RSV (PCR) NEGATIVE (NEGATIVE) SARS-CoV-2 (PCR) NEGATIVE (NEGATIVE) - Procedures and Test Procedures and Tests throughout Hospitalization: Therapy Orders & Screens 10/06/24 21:31 EKG REPEAT IN AM Comment: Diagnosis: Symptomatic hypokalemia, PVC on EKG 10/07/24 07:32 EKG ROUTINE Comment: Diagnosis: Symptomatic hypokalemia, PVC on EKG Discharge Exam General Appearance: no apparent distress, alert, obese Neurologic Exam: alert, oriented x 3, cooperative, normal mood/affect, nml cerebellar function, sensation nml, No motor deficits Eye Exam: PERRL, EOMI, eyes nml inspection Ears, Nose, Throat Exam: normal ENT inspection, pharynx normal, moist mucous membranes Neck Exam: normal inspection, non-tender, supple, full range of motion Respiratory Exam: normal breath sounds, lungs clear, No respiratory distress Cardiovascular Exam: regular rate/rhythm, normal heart sounds Gastrointestinal/Abdomen Exam: soft, No tenderness, No mass Male Genitalia Exam: deferred Rectal Exam: deferred Back Exam: normal inspection, normal range of motion, No CVA tenderness, No vertebral tenderness Extremity Exam: normal inspection, normal range of motion Skin Exam: normal color, warm, dry Final Diagnosis/Problem List - Final Discharge Diagnosis/Problem (1) Hypokalemia Current Visit: No Status: Resolved Assessment & Plan: - Resolved with replacement on admission - Continue home dose - tele - K+ 3.7 - CBC, CMP reviewed - Sxs resolved per pt Code(s): E87.6 - HYPOKALEMIA (2) Hypertension Current Visit: No Status: Chronic Assessment & Plan: - Continue home meds - BP elevated this AM- trend with meds on board - If BP improves july d/c Code(s): I10 - ESSENTIAL (PRIMARY) HYPERTENSION (3) IgA nephropathy Current Visit: Yes Status: Chronic Assessment & Plan: - Has known renal potassium wasting. - Does not follow with a inspector and adjuster [employer] head. - PCP to consider nephrology consult if needed. - F/U OP with PCP - CMP reviewed- kidney function ok currently Code(s): N02.B9 - OTHER RECURRENT AND PERSISTENT IMMUNOGLOBULIN A NEPHROPATHY (4) Premature ventricular contraction on electrocardiogram Current Visit: Yes Status: Resolved Assessment & Plan: - Repeat EKG this AM reviewed - Resolved - Tele - Labs reviewed - Likely 2:2 electrolyte abnormality D/C plan time > 32 minutes Code(s): I49.3 - VENTRICULAR PREMATURE DEPOLARIZATION - Discharge Discharge Date: 10/07/24 Disposition: Home, Self-Care Condition: Stable Prescriptions: Continue Allopurinol 300 mg [Zyloprim 300 mg] 300 mg PO HS Ergocalciferol (Vitamin D2) [Vitamin D] 50,000 unit PO WEEKLY Ropinirole HCl [Requip] 2 mg PO HS Tamsulosin HCl 0.4 mg [Flomax 0.4 MG] 0.4 mg PO HS Rosuvastatin Calcium [Crestor] 20 mg PO HS Fexofenadine HCl [Debi Allergy] 180 mg PO HS Bupropion HCl Xl 150 mg [Wellbutrin XL 150 MG] 300 mg PO HS Losartan Potassium 50 mg PO HS Potassium Chloride 20 meq PO BID Finasteride 5 mg [Proscar 5 MG] 5 mg PO DAILY EPINEPHrine [Epipen 2-Prince] 0.3 mg IM UD Esomeprazole Magnesium 40 mg PO HS Multivitamin 1 each PO DAILY Triamterene/Hydrochlorothiazid [Triamterene-Hctz 37.5-25 mg Tb] 1 each PO DAILY Instructions: Obesity, Adult, Ventricular premature beats, Hypokalemia Follow up with: ELTON MÉNDEZ [Primary Care Provider, [facility]] - 10/13/24 2:00 pm
[2024-10-07 09:43] VITALS: BP 142/86
[2024-10-07] MEDS ORDERED: Maxzide-25MG Tablet PO SCH (10:00)
[2024-10-07] MEDS ORDERED: ELIQUIS 2.5 MG TABLET PO SCH (10:00)
[2024-10-07] MEDS ORDERED: NON-FORMULARY ITEM (Multivitamin [Multivitamin] 1 EACH Tablet) PO SCH (10:00)
[2024-10-07] MEDS ORDERED: NON-FORMULARY ITEM (Potassium Chloride [Potassium Chloride] 20 MEQ Tablet.Er) PO SCH (10:00)
[2024-10-07] MEDS ORDERED: REQUIP 2MG TAB PO SCH (22:00)
[2024-10-07] MEDS ORDERED: CLARITIN 10 MG PO SCH (22:00)
[2024-10-07] MEDS ORDERED: Cozaar 50 MG PO SCH (22:00)
[2024-10-08] MEDS ORDERED: VITAMIN D2 PO SCH (10:00)
== END 2024-10-07 10:42 | disposition home or self-care (01) ==
LOC: ED 16:51 → MED SURG 20:41
PROVIDERS: ADMIT Internal Medicine; ATTEND Internal Medicine
DX: E87.6 Hypokalemia (principal); I10 Essential (primary) hypertension; N02.B9 Other recurrent and persistent immunoglobulin A nephropathy; I49.3 Ventricular premature depolarization; E78.5 Hyperlipidemia, unspecified; Z79.899 Other long term (current) drug therapy
CPT/HCPCS: 36415; 80048; 80053; 81001; 82330; 83735; 84443; 84484; 85025; 87637; 93005; 93041; 93268; 94760; 99285; G0378